=== PATIENT | female | born 1975 | race Caucasian/White ===

== ENCOUNTER 2017-12-28 01:06 | Inpatient (IN) | payer BC ==
[2017-12-28] MEDS ORDERED: ZIPRASIDONE 20 MG VIAL IM STA (01:08)
[2017-12-28 02:39] LABS: Basophils % (A) 0 %; Mean Platelet Volume 6.7
[2017-12-28 02:46] LABS: Basophils # (A) 0.1 k/uL (0-0.2); Eosinophils # (A) 0.1 k/uL (0-0.7); Eosinophils % (A) 0 %; HCT 41.2 % (34.0-46.0); HGB 14.2 gm/dL (11.4-16.0); Lymphocytes # (A) 2.2 k/uL (1.0-4.8); Lymphocytes % (A) 9 %; MCH 30.8 pg (25.0-35.0); MCHC 34.4 g/dL (31.0-37.0); MCV 89.3 fL (80.0-100.0); Monocytes # (A) 0.9 k/uL (0-1.0); Monocytes % (A) 4 %; Neutrophils # (A) 21.4 k/uL (1.3-7.7); Neutrophils % (A) 86 %; Platelet Count 356 k/uL (150-450); RBC 4.61 m/uL (3.80-5.40); RDW 13.7 % (11.5-15.5); WBC 24.8 k/uL (3.8-10.6)
[2017-12-28 02:49] LABS: Amphetamine Screen,Urine Not Detected (NotDetected); Barbiturate Screen,Urine Not Detected (NotDetected); Benzodiazepines Screen,Urine Detected (NotDetected); Cocaine Screen,Urine Not Detected (NotDetected); Methadone Screen, Urine Not Detected (NotDetected); Opiate Screen,Urine Not Detected (NotDetected); Oxycodone Screen, Urine Not Detected (NotDetected); Phencyclidine Screen,Urine Not Detected (NotDetected); Tricyclic Antidepressant,Urine Not Detected (NotDetected); Urn Cannabinoid Scrn Not Detected (NotDetected)
[2017-12-28 02:51] LABS: ALT 23 U/L (9-52); AST 22 U/L (14-36); Acetaminophen <10.0 ug/mL; Alcohol <10 mg/dL; Alkaline Phosphatase 123 U/L (38-126); Anion Gap 19 mmol/L; Blood Urea Nitrogen 16 mg/dL (7-17); Calcium 9.8 mg/dL (8.4-10.2); Carbon Dioxide 14 mmol/L (22-30); Chloride 108 mmol/L (98-107); Glucose 192 mg/dL (74-99); Potassium 3.2 mmol/L (3.5-5.1); Salicylate <1.0 mg/dL; Sodium 141 mmol/L (137-145); Total Bilirubin 0.5 mg/dL (0.2-1.3); Total Protein 8.4 g/dL (6.3-8.2)
[2017-12-28] MEDS ORDERED: LORazepam 2 MG/ML INJ IV STA (03:11)
[2017-12-28] MEDS ORDERED: SODIUM CHLORIDE 0.9% 2,000 ML IV ONE (03:27)
--- NOTE | 2017-12-28 03:53 | XR ---
EXAMINATION TYPE: XR chest 1V portable DATE OF EXAM: 12/28/2017 COMPARISON: 02/14/2016 HISTORY: Cough and tremors TECHNIQUE: Single frontal view of the chest is obtained. FINDINGS: Heart and mediastinum are normal. Lungs are clear. Diaphragm is normal. Bony thorax appear s normal. IMPRESSION: Normal chest. No change.
[2017-12-28] MEDS ORDERED: cefTRIAXone IN SWFI 1,000 MG/10 ML SYRINGE IVP STA (04:05)
[2017-12-28] MEDS ORDERED: MORPHINE SULFATE 2 MG/ML SYRINGE IV STA (04:05)
[2017-12-28 04:20] LABS: Appearance,Urine Clear (Clear); Bilirubin,Urine Negative (Negative); Blood,Urine Moderate (Negative); Calcium Oxalate Crystals,Urine Few /hpf; Color,Urine Yellow; Glucose,Urine (UA) Negative (Negative); Ketones,Urine Negative (Negative); Leukocyte Esterase,Urine Negative (Negative); Mucus,Urine Rare /hpf; Nitrite,Urine Negative (Negative); PH, Urine 5.5 (5.0-8.0); Protein,Urine 2+ (Negative); RBC,Urine 5 /hpf (0-5); Specific Gravity,Urine 1.032 (1.001-1.035); Squamous Epithelial Cell,Urine 1 /hpf (0-4); Urobilinogen,Urine <2.0 mg/dL (<2.0); WBC,Urine 3 /hpf (0-5)
--- NOTE | 2017-12-28 05:15 | CT ---
EXAMINATION TYPE: CT brain wo con DATE OF EXAM: 12/28/2017 COMPARISON: 07/04/2015 HISTORY: AMS, Tremors CT DLP: 984.40 mGycm. Automated Exposure Control for Dose Reduction was Utilized. TECHNIQUE: CT scan of the head is performed without contrast. FINDINGS: Ventricles of normal size. There is no mass effect nor midline shift. There is no sign of intracranial hemorrhage. The calvarium is intact. IMPRESSION: Negative CT scan of the brain. No change.
[2017-12-28] MEDS ORDERED: ACETAMINOPHEN TAB 325 MG TAB PO PRN (06:35)
[2017-12-28] MEDS ORDERED: NALOXONE 0.4 MG/ML 1 ML VIAL IV PRN (06:35)
--- NOTE | 2017-12-28 07:07 | ED ---
Altered Mental Status HPI - General Chief Complaint: Psychiatric Symptoms Stated Complaint: Altered mental status Time Seen by Provider: 12/28/17 01:07 Source: EMS Mode of arrival: EMS Limitations: altered mental status - History of Present Illness Initial Comments: This patient is a 42-year-old woman brought in to be evaluated for altered mental status. The patient is not able to give any history. History is from the patient's mother. Patient's mother states that the patient has history of restless leg syndrome, and that she is given tramadol by her primary physician to take for this. The patient ran out of the tramadol on Friday, and was not feeling well so she went to [facility] on Friday and was given 2 tablets which helped with the symptoms that she was having. The patient 's mother states that the restless leg symptoms seem to be recurring this evening, and that the symptoms became severe about 7 PM. At that point the patient was not able to answer most questions, and she was having what appeared to be spasms that were affecting the legs but also with be manifested in the arms. The patient did not have any apparent fall or injury. MD Complaint: altered mental status Onset/Timin -: hour(s) Severity: severe Consistency of Symptoms: getting worse Context: change in medication, history of similar presentation - Related Data Home Medications Medication Instructions Recorded Confirmed Sertraline [Zoloft] 200 mg PO HS 07/05/15 03/02/16 clonazePAM [Clonazepam] 1 mg PO HS 12/13/15 03/02/16 QUEtiapine [SEROquel] 100 mg PO HS 02/14/16 03/02/16 lamoTRIgine [LaMICtal] 200 mg PO HS 02/14/16 03/02/16 Previous Rx's Medication Instructions Recorded Ibuprofen [Motrin] 800 mg PO Q6HR PRN #20 tab 02/14/16 Allergies Allergy/AdvReac Type Severity Reaction Status Date / Time suvorexant [From Belsomra] AdvReac SLEEP Verified 03/02/16 07:30 PARALYSIS trazodone AdvReac SLEEP Verified 03/02/16 07:30 PARALYSIS Review of Systems ROS Statement: Those systems with pertinent positive or pertinent negative responses have been documented in the HPI. ROS Other: All systems not noted in ROS Statement are negative. Limitations: ROS unobtainable due to patients medical condition Respiratory: Denies: cough Gastrointestinal: Denies: vomiting Past Medical History Past Medical History: Seizure Disorder History of Any Multi-Drug Resistant Organisms: None Reported Additional Past Surgical History / Comment(s): left breast cyst Past Psychological History: Anxiety, Bipolar, Depression Smoking Status: Former smoker Past Alcohol Use History: None Reported Past Drug Use History: None Reported General Exam Limitations: altered mental status General appearance: obtunded Head exam: Present: atraumatic, normocephalic Eye exam: Present: normal appearance, PERRL, EOMI. Absent: scleral icterus, conjunctival injection ENT exam: Present: mucous membranes dry Neck exam: Present: normal inspection, full ROM. Absent: meningismus Respiratory exam: Present: rhonchi. Absent: respiratory distress, wheezes, rales, stridor, accessory muscle use, decreased breath sounds, prolonged expiratory Cardiovascular Exam: Present: normal rhythm, tachycardia, normal heart sounds. Absent: systolic murmur, diastolic murmur, rubs, gallop GI/Abdominal exam: Present: soft. Absent: distended, tenderness, guarding, rebound, rigid, mass Extremities exam: Present: normal inspection, normal capillary refill. Absent: pedal edema, calf tenderness Back exam: Present: normal inspection. Absent: CVA tenderness (R), CVA tenderness (L) Neurological exam: Present: altered, CN II-XII intact, reflexes normal. Absent : motor sensory deficit Skin exam: Present: warm, dry, intact, normal color. Absent: rash Course Vital Signs 12/28/17 12/28/17 01:27 05:58 Temperature 100.2 F H 99.8 F H Pulse Rate 127 H 116 H Respiratory 17 17 Rate Blood Pressure 147/62 153/89 O2 Sat by Pulse 98 95 Oximetry Medical Decision Making - Medical Decision Making Patient's a 42-year-old woman brought for altered mental status. The patient's workup is notable mainly for leukocytosis. So had borderline fever, and I discussed indications, risks and benefits of having lumbar puncture with the patient's mother with this point is refusing. The patient is given empiric Biotics. The patient's case discussed with Dr. Conrad, covering for the patient's primary physician. Patient will be admitted, having neurology consultation to rule out seizure activity. Case also discussed with Dr. Steele covering critical care. - Lab Data Result diagrams: 12/28/17 02:17 12/28/17 02:17 Lab Results 12/28/17 12/28/17 12/28/17 Range/Units 02:15 02:17 02:17 WBC 24.8 H (3.8-10.6) k/uL RBC 4.61 (3.80-5.40) m/uL Hgb 14.2 (11.4-16.0) gm/dL Hct 41.2 (34.0-46.0) % MCV 89.3 (80.0-100.0) fL MCH 30.8 (25.0-35.0) pg MCHC 34.4 (31.0-37.0) g/dL RDW 13.7 (11.5-15.5) % Plt Count 356 (150-450) k/uL Neutrophils % 86 % Lymphocytes % 9 % Monocytes % 4 % Eosinophils % 0 % Basophils % 0 % Neutrophils # 21.4 H (1.3-7.7) k/uL Lymphocytes # 2.2 (1.0-4.8) k/uL Monocytes # 0.9 (0-1.0) k/uL Eosinophils # 0.1 (0-0.7) k/uL Basophils # 0.1 (0-0.2) k/uL Sodium 141 (137-145) mmol/L Potassium 3.2 L (3.5-5.1) mmol/L Chloride 108 H (98-107) mmol/L Carbon Dioxide 14 L (22-30) mmol/L Anion Gap 19 mmol/L BUN 16 (7-17) mg/dL Creatinine 1.10 H (0.52-1.04) mg/dL Est GFR (CKD-EPI)AfAm 72 (>60 ml/min/1.73 sqM) Est GFR (CKD-EPI)NonAf 63 (>60 ml/min/1.73 sqM) Glucose 192 H (74-99) mg/dL Plasma Lactic Acid Danilo (0.7-2.0) mmol/L Calcium 9.8 (8.4-10.2) mg/dL Total Bilirubin 0.5 (0.2-1.3) mg/dL AST 22 (14-36) U/L ALT 23 (9-52) U/L Alkaline Phosphatase 123 (38-126) U/L Total Protein 8.4 H (6.3-8.2) g/dL Albumin 5.0 (3.5-5.0) g/dL Urine Color Yellow Urine Appearance Clear (Clear) Urine pH 5.5 (5.0-8.0) Ur Specific Buchanan 1.032 (1.001-1.035) Urine Protein 2+ H (Negative) Urine Glucose (UA) Negative (Negative) Urine Ketones Negative (Negative) Urine Blood Moderate H (Negative) Urine Nitrite Negative (Negative) Urine Bilirubin Negative (Negative) Urine Urobilinogen <2.0 (<2.0) mg/dL Ur Leukocyte Esterase Negative (Negative) Urine RBC 5 (0-5) /hpf Urine WBC 3 (0-5) /hpf Ur Squamous Epith Cells 1 (0-4) /hpf Calcium Oxalate Crystal Few H (None) /hpf Urine Mucus Rare H (None) /hpf Urine HCG, Qual (Not Detectd) Salicylates <1.0 mg/dL Urine Opiates Screen (NotDetected) Ur Oxycodone Screen (NotDetected) Urine Methadone Screen (NotDetected) Ur Propoxyphene Screen (NotDetected) Acetaminophen <10.0 ug/mL Ur Barbiturates Screen (NotDetected) U Tricyclic Antidepress (NotDetected) Ur Phencyclidine Scrn (NotDetected) Ur Amphetamines Screen (NotDetected) U Methamphetamines Scrn (NotDetected) U Benzodiazepines Scrn (NotDetected) Urine Cocaine Screen (NotDetected) U Marijuana (THC) Screen (NotDetected) Serum Alcohol <10 mg/dL 12/28/17 12/28/17 12/28/17 Range/Units 02:17 02:17 04:25 WBC (3.8-10.6) k/uL RBC (3.80-5.40) m/uL Hgb (11.4-16.0) gm/dL Hct (34.0-46.0) % MCV (80.0-100.0) fL MCH (25.0-35.0) pg MCHC (31.0-37.0) g/dL RDW (11.5-15.5) % Plt Count (150-450) k/uL Neutrophils % % Lymphocytes % % Monocytes % % Eosinophils % % Basophils % % Neutrophils # (1.3-7.7) k/uL Lymphocytes # (1.0-4.8) k/uL Monocytes # (0-1.0) k/uL Eosinophils # (0-0.7) k/uL Basophils # (0-0.2) k/uL Sodium (137-145) mmol/L Potassium (3.5-5.1) mmol/L Chloride (98-107) mmol/L Carbon Dioxide (22-30) mmol/L Anion Gap mmol/L BUN (7-17) mg/dL Creatinine (0.52-1.04) mg/dL Est GFR (CKD-EPI)AfAm (>60 ml/min/1.73 sqM) Est GFR (CKD-EPI)NonAf (>60 ml/min/1.73 sqM) Glucose (74-99) mg/dL Plasma Lactic Acid Danilo 2.3 H* (0.7-2.0) mmol/L Calcium (8.4-10.2) mg/dL Total Bilirubin (0.2-1.3) mg/dL AST (14-36) U/L ALT (9-52) U/L Alkaline Phosphatase (38-126) U/L Total Protein (6.3-8.2) g/dL Albumin (3.5-5.0) g/dL Urine Color Urine Appearance (Clear) Urine pH (5.0-8.0) Ur Specific Buchanan (1.001-1.035) Urine Protein (Negative) Urine Glucose (UA) (Negative) Urine Ketones (Negative) Urine Blood (Negative) Urine Nitrite (Negative) Urine Bilirubin (Negative) Urine Urobilinogen (<2.0) mg/dL Ur Leukocyte Esterase (Negative) Urine RBC (0-5) /hpf Urine WBC (0-5) /hpf Ur Squamous Epith Cells (0-4) /hpf Calcium Oxalate Crystal (None) /hpf Urine Mucus (None) /hpf Urine HCG, Qual Not Detected (Not Detectd) Salicylates mg/dL Urine Opiates Screen Not Detected (NotDetected) Ur Oxycodone Screen Not Detected (NotDetected) Urine Methadone Screen Not Detected (NotDetected) Ur Propoxyphene Screen Not Detected (NotDetected) Acetaminophen ug/mL Ur Barbiturates Screen Not Detected (NotDetected) U Tricyclic Antidepress Not Detected (NotDetected) Ur Phencyclidine Scrn Not Detected (NotDetected) Ur Amphetamines Screen Not Detected (NotDetected) U Methamphetamines Scrn Not Detected (NotDetected) U Benzodiazepines Scrn Detected H (NotDetected) Urine Cocaine Screen Not Detected (NotDetected) U Marijuana (THC) Screen Not Detected (NotDetected) Serum Alcohol mg/dL Disposition Clinical Impression: Altered mental status, Withdrawal from opioids, Leukocytosis Disposition: ADMITTED IP TO THIS [facility] Condition: Serious Is patient prescribed a controlled substance at d/c from ED?: No
[2017-12-28] MEDS ORDERED: ACETAMINOPHEN IV (For NPO) 1,000 MG in EMPTY BAG 1 BAG IVPB STA (08:01)
[2017-12-28] MEDS ORDERED: MIDAZOLAM 2 MG/2 ML VIAL IV ONE (09:39)
[2017-12-28] MEDS: SODIUM CHLORIDE 0.9% 1,000 ML IV SCH ×3 (09:49→23:08)
[2017-12-28] MEDS ORDERED: fentaNYL (PF) 50 MCG/ML 2 ML AMP IVP STA (09:51)
--- NOTE | 2017-12-28 10:25 | P.PCN ---
Date of Procedure: 12/28/17 Procedure(s) Performed: Preoperative diagnosis: Altered mental status Post operative diagnoses: Altered mental status Anesthesia= moderate sedation with Versed 2 mg and fentanyl 100 g and local infiltration with lidocaine 1% 2 mL. Condition: Critical. Complication: none. Description of the procedure procedure risk and benefits discussed with the patient:s family ( mother ), consent signed. Patient and the procedure area placed in lateral position back prepped with chlorhexidine 3 times been local infiltration of the skin and subcutaneous tissue with lidocaine 1% 2 mL for skin and subcu interstitial frustrations at L4 5 levels then 22-gauge Quincke- type needle advanced slowly at L4- 5 interlaminar space there was positive cerebrospinal fluid which was clear, no heme, no paresthesia ,total of 8 ML of clear cerebrospinal fluid collected in 4 different tubes 2- mL in each, then the needle removed and a Band-Aid applied and patient tolerated the procedure well without any complications, further management as per intensive care unit team.
[2017-12-28 11:21] LABS: Appearance,CSF Clear; CSF Tube Number 4; Nucleated Cells, CSF 1 u/L (0-5)
[2017-12-28 11:22] LABS: Red Blood Cell,CSF 1 u/L (0-10)
[2017-12-28 11:23] LABS: Glucose,CSF 69 mg/dL (40-70); Total Protein,CSF 46 mg/dL (12-60)
[2017-12-28] MEDS ORDERED: IBUPROFEN ORAL SUSP 100 MG/5 ML CUP PO ONE (12:07)
[2017-12-28] MEDS ORDERED: ACETAMINOPHEN ORAL SUSP 160 MG/5 ML CUP PO ONE (12:07)
[2017-12-28 13:20] LABS: Glucose,Whole Blood 118 mg/dL (75-99)
[2017-12-28] MEDS ORDERED: HALOPERIDOL LACTATE 5 MG/ML 1 ML VIAL IVP STA ×2 (14:20→14:51)
[2017-12-28] MEDS ORDERED: MORPHINE SULFATE 2 MG/ML SYRINGE IVP STA (14:20)
[2017-12-28] MEDS ORDERED: DIAZEPAM 5 MG/ML 2 ML INJ IVP STA (14:21)
[2017-12-28] MEDS ORDERED: DIAZEPAM 5 MG/ML (10 ML MDV) IVP STA (14:25)
[2017-12-28] MEDS ORDERED: HALOPERIDOL LACTATE 5 MG/ML 1 ML VIAL IVP PRN ×2 (14:37)
[2017-12-28] MEDS ORDERED: ACETAMINOPHEN IV (For NPO) 1,000 MG in EMPTY BAG 1 BAG IVPB PRN (14:44)
[2017-12-28] MEDS ORDERED: PROPOFOL 100 ML IV ONE (15:24)
[2017-12-28] MEDS ORDERED: CISATRACURIUM 2 MG/ML 5 ML VIAL IV ONE (15:24)
[2017-12-28] MEDS ORDERED: NOREPINEPHRIN 4 MG-0.9% NS PMX 4 MG/250 ML ML IV ONE (15:29)
[2017-12-28] MEDS: PROPOFOL 1,000 MG in EMPTY BAG 1 BAG IV SCH ×3 (15:30→22:03)
[2017-12-28] MEDS ORDERED: SODIUM CHLORIDE 0.9% 1,000 ML IV ONE ×2 (15:45→15:46)
--- NOTE | 2017-12-28 15:51 | P.CNPUL ---
History of Present Illness Consult date: 12/28/17 Chief complaint: Altered mental status History of present illness: A 42-year-old female patient with known history of severe depression/bipolar disorder along with history of chronic muscle spasm restless leg syndrome has been taking Ultram 100 mg 3 times a day for many years. The patient has been hospitalized in the past for suicidal attempts and she has not seen a psychiatrist for the past 3 years. There is a vague remote history of seizure disorder in the past. The patient was brought in to the burst department this morning because of altered mentation. She was not able to give any history and the history was obtained from the family including the father and the mother with home the patient lives. The family claims that the patient was not able to get her tramadol refills and she is started to withdrawal from being off opiates and tramadol 9 that she is very much dependent on this medication. She started getting altered and confused and combative and agitated. In the burst department the patient was very much agitated and she was unable to answer any questions. She was moving all 4 extremities without any limitation. She was placed and 2 points restraint and she was given a total of 9 mg of morphine, 100 g of fentanyl and 20 mg of Geodon. A lumbar puncture was also done in the emergency department did came back negative for meningitis. The patient got transferred to the intensive care unit and she was extremely agitated to the point where she was combative and was very hard to control her agitation. I give this patient additional 5 mg of Valium, a total of 10 mg of Haldol and 5 mg of morphine. Unfortunately, she continued to do the same behavior. She would yell and scream and the very agitated to the point where she was pulling out her IV lines and now this medication were given to him was effective. I discussed the case with the neurologist. Discussed the case with the family. I control her agitation with a total of 150 mg of Diprivan. This was given a bolus and following that the patient was given Nimbex and she was intubated and placed on a mechanical ventilator. Currently Diprivan is running at 50 mics per KG per minute. She is oxygenating well and she is well ventilating and success with the mechanical ventilator. She is an assist-control of 20, tidal volume 500, FiO2 of 100% and a PEEP of 5. She did have some hypotension postintubation with a blood pressure of mid 80s and currently is receiving IV fluids. Chest x-ray and blood gases are still pending for now. CAT scan of the brain that was done the burst department showed no acute abnormalities. No seizure activity was noted. No head trauma. No neck stiffness. She did have a 1 spike of temperature. Her lactic acid was at 2.1. Be urine was 16 creatinine is 1.1 glucose within normal limits and chest x-ray at time of admission is within normal limits. Review of Systems ROS unobtainable: due to mental status Past Medical History Past Medical History: Seizure Disorder Additional Past Medical History / Comment(s): Bipolar disorder, depression, previous history of suicidal ideation, previous opiate dependence, previous history of intentional suicide, restless leg syndrome, previous history of right shoulder dislocation, chronic anxiety, muscle spasms, severe problems related to social support group, and chronic psychiatric disorder History of Any Multi-Drug Resistant Organisms: None Reported Additional Past Surgical History / Comment(s): Biopsies of left breast cysts. Past Anesthesia/Blood Transfusion Reactions: No Reported Reaction Past Psychological History: Anxiety, Bipolar, Depression, PTSD Smoking Status: Current every day smoker Past Alcohol Use History: None Reported Past Drug Use History: None Reported - Past Family History Father Family Medical History: Hypertension Medications and Allergies Home Medications Medication Instructions Recorded Confirmed Type Sertraline [Zoloft] 200 mg PO HS 07/05/15 12/28/17 History QUEtiapine [SEROquel] 100 mg PO HS 02/14/16 12/28/17 History lamoTRIgine [LaMICtal] 200 mg PO HS 02/14/16 12/28/17 History Diazepam [Valium] 5 mg PO DAILY PRN 12/28/17 12/28/17 History Eszopiclone [Lunesta] 3 mg PO HS 12/28/17 12/28/17 History traMADol HCL [Ultram] 100 mg PO Q6HR PRN 12/28/17 12/28/17 History Allergies Allergy/AdvReac Type Severity Reaction Status Date / Time suvorexant [From Belsomra] AdvReac SLEEP Verified 12/28/17 10:38 PARALYSIS trazodone AdvReac SLEEP Verified 12/28/17 10:38 PARALYSIS Physical Exam Vitals: Vital Signs Temp Pulse Resp BP Pulse Ox 12/28/17 15:00 120 H 26 H 130/65 93 L 12/28/17 14:45 125 H 27 H 159/95 93 L 12/28/17 14:30 142 H 26 H 159/95 96 12/28/17 14:15 148 H 30 H 123/86 96 12/28/17 14:00 108 H 28 H 123/86 97 12/28/17 13:45 116 H 30 H 129/59 96 12/28/17 13:30 97.9 F 115 H 26 H 106/68 97 12/28/17 12:32 118 H 18 161/78 96 12/28/17 12:00 102.3 F H 62 22 131/62 99 12/28/17 10:00 127 H 18 125/76 96 12/28/17 09:00 101 F H 115 H 20 132/76 96 12/28/17 08:00 101.6 F H 120 H 20 144/78 96 12/28/17 05:58 99.8 F H 116 H 17 153/89 95 12/28/17 01:27 100.2 F H 127 H 17 147/62 98 Intake and Output 12/28/17 12/28/17 12/28/17 06:59 14:59 22:59 Intake Total 125 125 Output Total 400 50 Balance -275 75 Intake: IV 125 125 Sodium Chloride 0.9% 1, 125 125 000 ml @ 125 mls/hr IV . Q8H [facility] Rx#:[id number] Output: Urine 400 50 Other: Weight 77.111 kg 72.9 kg Gen. appearance the patient is calm comfortable sedated with Diprivan and paralyzed with a dose of Nimbex. Currently intubated on mechanical ventilator. Orogastric and orotracheal tube are both in place. Head exam was generally normal. There was no scleral icterus or corneal arcus. Mucous membranes were moist. Neck was supple and without jugular venous distension, thyromegaly, or carotid bruits. Carotids were easily palpable bilaterally. There was no adenopathy. Lungs were clear to auscultation and percussion, and with normal diaphragmatic excursion. No wheezes or rales were noted. Cardiac exam revealed the PMI to be normally situated and sized. The rhythm was regular and no extrasystoles were noted during several minutes of auscultation. The first and second heart sounds were normal and physiologic splitting of the second heart sound was noted. There were no murmurs, rubs, clicks, or gallops. Abdominal exam revealed normal bowel sounds. The abdomen was soft, non-tender, and without masses, organomegaly, or appreciable enlargement of the abdominal aorta. Examination of the extremities revealed easily palpable radial, femoral and pedal pulses. There was no cyanosis, clubbing or edema. Examination of the skin revealed no evidence of significant rashes, suspicious appearing nevi or other concerning lesions. Neurologically the patient is sedated with Diprivan and she is calm and comfortable at this point in time. Pupils are reacting and equal and sized. No focal neurological deficits. She is moving all 4 extremities. She was in an acute psychotic state. Results - Laboratory Findings CBC and BMP: 12/28/17 02:17 12/28/17 02:17 Abnormal lab findings: Abnormal Labs 12/28/17 12/28/17 12/28/17 02:15 02:17 02:17 WBC 24.8 H Neutrophils # 21.4 H Potassium 3.2 L Chloride 108 H Carbon Dioxide 14 L Creatinine 1.10 H Glucose 192 H POC Glucose (mg/dL) Plasma Lactic Acid Danilo Total Protein 8.4 H Urine Protein 2+ H Urine Blood Moderate H Calcium Oxalate Crystal Few H Urine Mucus Rare H U Benzodiazepines Scrn 12/28/17 12/28/17 12/28/17 02:17 04:25 13:18 WBC Neutrophils # Potassium Chloride Carbon Dioxide Creatinine Glucose POC Glucose (mg/dL) 118 H Plasma Lactic Acid Danilo 2.3 H* Total Protein Urine Protein Urine Blood Calcium Oxalate Crystal Urine Mucus U Benzodiazepines Scrn Detected H - Diagnostic Findings Chest x-ray: image reviewed Assessment and Plan Plan: Assessment 1 acute psychosis, with extreme agitation failed to respond to routine therapy with a combination of Haldol, opiates and benzodiazepines. Currently intubated on mechanical ventilator on a Diprivan drip 2 acute opiate withdrawal 3 bipolar disorder 4 depression 5 previous history of suicidal attempts 6 chronic Ultram dependence 7 restless leg syndrome 8 chronic anxiety Plan Obtain blood gas. Obtain chest x-ray. Keep the patient on Diprivan. Restart Ultram Lamictal and Seroquel and Zoloft. This will be started a usual doses. Lumbar puncture is been negative. CAT scan of the brain is within normal limits. Neurologically on the case. We'll consult psychiatry. IV fluids. Monitor fever pattern. DVT and GI prophylaxis. We'll continue to follow. This case was discussed with urology. Family was updated on her condition.
--- NOTE | 2017-12-28 16:02 | P.CNNES ---
History of Present Illness Consult date: 12/28/17 Reason for Consult: Patient with altered mental status and acute psychosis. History of Present Illness: This patient is a 42-year-old right-handed white female who was brought into [facility] emergency room early this morning for evaluation of altered mental status. Patient apparently lives at home with both of her parents. Her mother was very concerned as a patient showed signs of increase in symptoms of restless leg syndrome. According to the mother that the patient has been taking tramadol 100 mg every 6 hours for many years. The patient apparently ran out of her tramadol medication this past Friday and was not feeling well. She went to the [facility] ER on Friday for further evaluation and was given 2 tablets which seemed to help somewhat but her symptoms seem to worsen according to the mother. The mother states that her symptoms of restless leg which she describes this severe muscle spasms in both of her legs become worse in the evening. Yesterday evening she became more and more combative and not able to follow simple commands. She appeared to have ongoing spasms in the legs. The patient became more and more confused and disoriented at home. According to the mother the patient has a long- standing psychiatric history. She has not been following with any psychiatrists recently. She had an admission to [facility] inpatient psychiatric unit a few years ago following which she was referred to [facility] for evaluation of possible seizure disorder. According to the mother she was evaluated at [facility] and had an MRI of the brain which according to the mother failed to reveal any abnormalities. The patient was seeing a psychiatrist in the outpatient setting for some period of time Dr. Alfonso. Apparently she has not seen him anytime recently. She is on multiple psychiatric medications which include Seroquel, Klonopin, Lamictal, and Zoloft. In addition she has been on tramadol for treatment of what the patient mother states was for treatment of restless leg syndrome. As noted she has been on tramadol 400 mg daily. This was being prescribed to her by her primary care physician Dr. Gleason. Apparently the patient has not had any recent psychiatric evaluation of her underlying psychiatric condition. The patient was evaluated in the emergency room this morning by Dr. Palomares. On initial laboratory workup in the emergency room she had evidence of leukocytosis. She then subsequent he developed high-grade temperature in the ER of 102.3. Neurology was consulted for further evaluation of her altered mental status. We recommended the ER physician Dr. Hollis to arrange for a lumbar puncture for this patient right away to rule out meningitis. The patient was seen by anesthesia and was able to complete the lumbar puncture performed by anesthesia this morning in the ER. Spinal fluid results came back with a RBC count of 1 and 90 WBC count of 1 with CSF glucose of 69 and CSF protein of 46. The Gram stain on the spinal fluid revealed no organisms. These spinal fluid results were negative for any evidence of meningitis. We have requested the spinal fluid also to be sent for HSV 1 and 2 to be done by PCR. Laboratory was contacted and the study will be ordered today. The patient continued to show worsening symptoms of agitation and combativeness. She was then transferred to the intensive care unit late this afternoon and still remains very agitated and combative. She was seen by application security specialist Dr. Steele in the ICU who ordered Haldol and Valium for the patient. This did seem to help reduce her agitation. Her clinical history is not typical for opioid withdrawal. She does seem to be having evidence for acute psychosis or delirium. We have recommended a stat psychiatry consultation for this patient as well. From a neurological standpoint the patient is to agitated and is not following any commands. She does show signs of some increased muscle spasticity in both upper and lower extremities more notable in the lower extremities. On further questioning the patient apparently has no difficulty at home ambulating or getting around the normal activities. According to the mother was at the ICU bedside. Her symptoms worsened over the last few days as she had been off of her usual dose of tramadol. According to the mother her evaluation at [facility] a few years ago came back negative for any clear evidence as a cause of her restless leg symptoms and spasticity. We question whether any imaging has been done of her spine and according to the mother there has been none. We will request the medical records from [facility] to review the MRI that was done at that time for this patient. According to the mother there was no clear abnormality detected at the time. The patient did undergo a computed tomography scan of the brain on admission through the ER today which was reported negative for any acute changes. The patient's temperature did come down in the intensive care unit and is currently at 97.9. As noted spinal fluid results were reviewed and there is no evidence for acute bacterial or viral meningitis. The patient still remains very agitated and almost showing signs of acute psychosis. This also could be possibility of withdrawal syndrome from tramadol. We have recommended a stat EEG to be done on this patient today in the intensive care unit. We have requested the rn unit manager to contact the on-call tool maintenance technician to arrange for this EEG to be done today for review to rule out any possibility of seizure disorder for this patient as well. Case was discussed at length today with Dr. Steele regarding this patient's overall neurological findings. She does show significant evidence from clonus and spasticity in both upper and lower extremities more notable in the lower extremities. We would recommend further evaluation with MRI studies of the brain as well as cervical and lumbar spinal cord. We will await further recommendations from psychiatry regarding her psychiatric medications. She is being given Haldol and Valium as needed to help control her current agitation. We will wait to see if pulmonary medicine and Dr. Steele wished to sedate the patient and place her on ventilator to protect her airways if she becomes worse. It was elected to to intubate the patient and she was sedated on Diprivan drip. Her overall condition remains very guarded in the ICU at this time. We have discussed our findings with the patient's mother and father who were at bedside. Their questions were answered. Her overall prognosis at this time remains very guarded. We will continue to follow the patient very closely in the intensive care unit with multiple other specialists. Review of Systems Constitutional: Denies chills, Denies fever Eyes: denies blurred vision, denies pain Ears, nose, mouth and throat: Denies headache, Denies sore throat Cardiovascular: Denies chest pain, Denies shortness of breath Respiratory: Denies cough Gastrointestinal: Denies abdominal pain, Denies diarrhea, Denies nausea, Denies vomiting Genitourinary: Denies dysuria, Denies hematuria Musculoskeletal: Denies myalgias Integumentary: Denies pruritus, Denies rash Neurological: Reports change in mentation, Reports confusion, Reports motor disturbance, Reports spasticity, Denies numbness, Denies weakness Psychiatric: Reports confusion, Reports disorientation, Reports irritability, Denies anxiety, Denies depression Endocrine: Denies fatigue, Denies weight change Past Medical History Past Medical History: Seizure Disorder History of Any Multi-Drug Resistant Organisms: None Reported Additional Past Surgical History / Comment(s): Biopsies of left breast cysts. Past Anesthesia/Blood Transfusion Reactions: No Reported Reaction Past Psychological History: Anxiety, Bipolar, Depression, PTSD Smoking Status: Current every day smoker Past Alcohol Use History: None Reported Past Drug Use History: None Reported - Past Family History Father Family Medical History: Hypertension Medications and Allergies Home Medications Medication Instructions Recorded Confirmed Type Sertraline [Zoloft] 200 mg PO HS 07/05/15 12/28/17 History QUEtiapine [SEROquel] 100 mg PO HS 02/14/16 12/28/17 History lamoTRIgine [LaMICtal] 200 mg PO HS 02/14/16 12/28/17 History Diazepam [Valium] 5 mg PO DAILY PRN 12/28/17 12/28/17 History Eszopiclone [Lunesta] 3 mg PO HS 12/28/17 12/28/17 History traMADol HCL [Ultram] 100 mg PO Q6HR PRN 12/28/17 12/28/17 History Allergies Allergy/AdvReac Type Severity Reaction Status Date / Time suvorexant [From [facility]] AdvReac SLEEP Verified 12/28/17 10:38 PARALYSIS trazodone AdvReac SLEEP Verified 12/28/17 10:38 PARALYSIS Physical Examination - Vital Signs Vital Signs: Vital Signs Temp Pulse Resp BP Pulse Ox 12/28/17 15:00 120 H 26 H 130/65 93 L 12/28/17 14:45 125 H 27 H 159/95 93 L 12/28/17 14:30 142 H 26 H 159/95 96 12/28/17 14:15 148 H 30 H 123/86 96 12/28/17 14:00 108 H 28 H 123/86 97 12/28/17 13:45 116 H 30 H 129/59 96 12/28/17 13:30 97.9 F 115 H 26 H 106/68 97 12/28/17 12:32 118 H 18 161/78 96 12/28/17 12:00 102.3 F H 62 22 131/62 99 12/28/17 10:00 127 H 18 125/76 96 12/28/17 09:00 101 F H 115 H 20 132/76 96 12/28/17 08:00 101.6 F H 120 H 20 144/78 96 12/28/17 05:58 99.8 F H 116 H 17 153/89 95 12/28/17 01:27 100.2 F H 127 H 17 147/62 98 Intake and Output 12/28/17 12/28/17 12/28/17 06:59 14:59 22:59 Intake Total 125 125 Output Total 400 50 Balance -275 75 Intake: IV 125 125 Sodium Chloride 0.9% 1, 125 125 000 ml @ 125 mls/hr IV . Q8H [facility] Rx#:[id number] Output: Urine 400 50 Other: Weight 77.111 kg 72.9 kg - Constitutional General appearance: average body habitus, severe distress - EENT EENT: PERRL, mucous membranes moist - Respiratory Respiratory: lungs clear, normal breath sounds - Cardiovascular Cardiovascular: regular rate, normal S1, normal S2 Extremities: no peripheral edema bilaterally - Gastrointestinal Gastrointestinal: normoactive bowel sounds - Integumentary Integumentary: normal - Neurologic Cranial nerve examination: PERRL, EOMI, VFF, V1/V2/V3 grossly intact, face symmetric, tongue midline, intact gag reflex, intact corneal reflex, normal palatal elevation Speech examination: global aphasia, other (Patient screaming and agitated in the ICU.) Sensorimotor examination: intact Motor examination - right side: 4/5: biceps, triceps, wrist flexion, wrist extension, life insurance salesperson, hip flexors, knee extensors, dorsiflexion, toe extension (EHL) , plantarflexion Motor examination - left side: 4/5: biceps, triceps, wrist flexion, wrist extension, life insurance salesperson, hip flexors, knee extensors, dorsiflexion, toe extension (EHL) , plantarflexion Detailed sensory examination: intact Reflex and gait examination: other (Not able to assess her gait due to agitation in the ICU.) Reflexes: 2+: ankle, bicep, knee, tricep - Psychiatric Psychiatric: agitated Results - Laboratory Findings CBC and BMP: 12/28/17 02:17 12/28/17 02:17 Abnormal Lab Findings: Abnormal Labs 12/28/17 12/28/17 12/28/17 02:15 02:17 02:17 WBC 24.8 H Neutrophils # 21.4 H Potassium 3.2 L Chloride 108 H Carbon Dioxide 14 L Creatinine 1.10 H Glucose 192 H POC Glucose (mg/dL) Plasma Lactic Acid Danilo Total Protein 8.4 H Urine Protein 2+ H Urine Blood Moderate H Calcium Oxalate Crystal Few H Urine Mucus Rare H U Benzodiazepines Scrn 12/28/17 12/28/17 12/28/17 02:17 04:25 13:18 WBC Neutrophils # Potassium Chloride Carbon Dioxide Creatinine Glucose POC Glucose (mg/dL) 118 H Plasma Lactic Acid Danilo 2.3 H* Total Protein Urine Protein Urine Blood Calcium Oxalate Crystal Urine Mucus U Benzodiazepines Scrn Detected H Assessment and Plan (1) Acute metabolic encephalopathy Current Visit: Yes Status: Acute Code(s): G93.41 - METABOLIC ENCEPHALOPATHY SNOMED Code(s): 69671109 (2) History of psychiatric disorder Current Visit: Yes Status: Acute Code(s): Z86.59 - PERSONAL HISTORY OF OTHER MENTAL AND BEHAVIORAL DISORDERS SNOMED Code(s): 109736680 (3) Leukocytosis Current Visit: Yes Status: Acute Code(s): D72.829 - ELEVATED WHITE BLOOD CELL COUNT, UNSPECIFIED SNOMED Code(s): 482039382 (4) Seizures, generalized convulsive Current Visit: No Status: Acute Code(s): R56.9 - UNSPECIFIED CONVULSIONS SNOMED Code(s): 917035977 (5) Depression Current Visit: No Status: Acute Code(s): F32.9 - MAJOR DEPRESSIVE DISORDER, SINGLE EPISODE, UNSPECIFIED SNOMED Code(s): 76124671 Plan: This patient is a 42-year-old right-handed white female who was evaluated today in the intensive care unit for altered mental status and acute psychosis. Patient was brought into the emergency room today for worsening symptoms of restless leg syndrome and withdrawal from tramadol. Patient has been treated for restless leg syndrome and had been taking tramadol 100 mg 4 times a day. She ran out of her prescription on Friday of this past week and showed worsening symptoms of spasms mostly involving her lower extremities. Symptoms worsened and she became more and more agitated and her mother and father decided to bring her to the emergency room today for further evaluation. She was seen in the ER by Dr. Palomares who performed a computed tomography scan of the brain. CAT scan of the brain was reported negative with no acute changes. Patient developed high-grade fever in the ER and was recommended to undergo a lumbar puncture. Lumbar puncture was performed by anesthesia and the results of which are noted above. Spinal fluid was negative for any evidence of bacterial meningitis. We have recommended the spinal fluid to be checked for HSV-1 and 2. This was admitted today to the laboratory workup. The patient remains very agitated in the ICU. She is required multiple doses of Haldol and Valium to help calm her down. We have recommended a stat EEG to be done today in the ICU to rule out any possibility of underlying seizure disorder producing the severe altered mental status. Patient is to be evaluated by psychiatry. She does have evidence of possible tramadol withdrawal syndrome. Case was discussed at length with the patient's 2 parents or at bedside. All their questions were answered. They are aware of her very guarded condition. Case was also discussed today with Dr. Steele and we will continue very close supervision of this patient in the intensive care unit. It was elected by Dr. Steele to intubate this patient and she has been placed on a Diprivan drip. We have requested records to be obtained from [facility] where she was evaluated for seizure disorder about 2 years ago. According to her mother the workup came back negative. Patient has been on tramadol for at least 10 years to treat what the mother terms for treatment of restless leg syndrome. We have recommended possibility of obtaining MRI of the brain, cervical spine, and lumbar spine once the patient is stabilized. We will continue to follow the patient closely with multiple other specialists in the ICU. The patient's parents were updated on her overall neurological status in the ICU. They are aware of her very guarded condition. Her overall prognosis at this time remains very guarded. Time with Patient: Greater than 30
[2017-12-28 16:06] LABS: ABG HCO3 18 mmol/L (21-25); ABG PCO2 33 mmHg (35-45); ABG PH 7.34 (7.35-7.45); ABG PO2 391 mmHg (83-108); ABG TCO2 19 mmol/L (19-24)
[2017-12-28] MEDS ORDERED: NOREPINEPHRINE 16 MG in SODIUM CHLORIDE 0.9% 250 ML IV SCH (16:30)
[2017-12-28] MEDS: HEPARIN SODIUM,PORCINE 5,000 UNIT/ML 1 ML VIAL SQ SCH ×2 (16:48→23:08)
[2017-12-28] MEDS: PANTOPRAZOLE 40 MG/10 ML VIAL IVP SCH (16:48)
--- NOTE | 2017-12-28 17:16 | XR ---
EXAMINATION TYPE: XR chest 1V portable DATE OF EXAM: 12/28/2017 COMPARISON: 12/28/2017 INDICATION: Tube placement, difficulty breathing TECHNIQUE: Single frontal view of the chest is obtained. FINDINGS: The heart size is normal. The pulmonary vasculature is normal. The lungs are clear. There is an endotracheal tube placement the tip above the debbie. Nasogastric tube transverses the th orax the tip in the right upper quadrant of the abdomen. IMPRESSION: 1. No acute pulmonary process. 2. Lines and catheters discussed above.
[2017-12-28] MEDS: traMADol 50 MG TAB PO PRN (18:03)
[2017-12-28 19:05] LABS: ABG PCO2 36 mmHg (35-45); ABG PO2 210 mmHg (83-108)
[2017-12-28 19:06] LABS: ABG HCO3 17 mmol/L (21-25); ABG TCO2 19 mmol/L (19-24)
--- NOTE | 2017-12-28 19:49 | EEG ---
ELECTROENCEPHALOGRAM REPORT DATE OF EE12/28/2017. REFERRING PHYSICIAN: Dr. Gleason and Dr. Steele. CONSULTING/INTERPRETING PHYSICIAN: Dr. Byron Wei MD ELECTROENCEPHALOGRAPHIC EXAMINATION REPORT: INDICATION FOR EXAMINATION: This patient is a 42-year-old female being evaluated for acute psychosis and altered mental status. Patient with recent withdrawal from high dose tramadol. The EEG ordered to rule out seizure disorder. Patient currently intubated on the ventilator. AGE: [age]. EEG FINDINGS: A routine 21 channel awake digital EEG recording was accomplished utilizing the 10-20 international system with bipolar and referential montages. The background activity in the most alert resting state consists of a low to medium amplitude, fairly well developed and well sustained 6 Hz activity over the posterior head regions. This posterior rhythm attenuates to eye opening. There is a small amount of low amplitude 18-20 Hz beta activity seen maximally over the anterior head regions. Muscle and movement artifact was observed on a few occasions during the tracing. Hyperventilation was not performed. Photic stimulation at flash frequencies of 2-30 Hz produced a minimal occipital driving response. No epileptiform discharges were seen. IMPRESSION: This EEG is moderately abnormal in a diffuse fashion due to slowing of the EEG background. The EEG failed to reveal any focal, lateralized, or epileptiform abnormalities. Clinical correlation is recommended. MMODL / IJN: [id number] /
[2017-12-28] MEDS: QUEtiapine 100 MG TAB PO SCH (20:13)
[2017-12-28] MEDS: lamoTRIgine 100 MG TAB PO SCH (20:13)
[2017-12-28] MEDS: CHLORHEXIDINE GLUCONATE 15 ML CUP MUCOUS MEM SCH (20:13)
--- NOTE | 2017-12-28 22:48 | P.HPIM ---
History of Present Illness H&P Date: 12/28/17 Chief Complaint: Altered mental status Patient is a 42-year-old female with a known history of seizure disorder, bipolar disorder, depression, history of suicidal ideation and opiate dependence , restless leg syndrome and other multiple medical problems was brought to the hospital with altered mental status. Patient has been treated for restless leg syndrome with tramadol for the past 10 years which she has been taking. Patient ran out of tramadol on Friday and patient was not feeling well so she went to [facility] on Friday and was given 2 tablets which helped with symptoms that she was having. He has for her mother patient's restless leg syndrome symptoms seems to be recurring yesterday evening and became severe at about 7 PM. At that point patient was unable to answer questions and was having spasms affecting her legs and also in the arms. Patient was also having altered sensorium and patient was eventually brought to ER for further evaluation. Patient does take Ultram 100 mg [address] head was done in the ER showed no acute intracranial abnormality. Patient also developed fever in the ER and prompted to that lumbar puncture to rule out meningitis. CSF fluid analysis showed no signs of infection. Culture report is still pending. While in the ER patient became more agitated and combative. Patient was given morphine and Valium and Haldol which did not come her down. Patient was initially sedated and intubated. Patient was seen by pulmonary and neurology. History was taken from patient's mother at bedside and medical records and ER note. Patient is currently sedated and intubated. UDS positive for benzodiazepines. Review of Systems Review of systems could not be up and from the patient Past Medical History Past Medical History: Seizure Disorder Additional Past Medical History / Comment(s): Bipolar disorder, depression, previous history of suicidal ideation, previous opiate dependence, previous history of intentional suicide, restless leg syndrome, previous history of right shoulder dislocation, chronic anxiety, muscle spasms, severe problems related to social support group, and chronic psychiatric disorder History of Any Multi-Drug Resistant Organisms: None Reported Additional Past Surgical History / Comment(s): Biopsies of left breast cysts. Past Anesthesia/Blood Transfusion Reactions: No Reported Reaction Past Psychological History: Anxiety, Bipolar, Depression, PTSD Smoking Status: Current every day smoker Past Alcohol Use History: None Reported Past Drug Use History: None Reported - Past Family History Father Family Medical History: Hypertension Medications and Allergies Home Medications Medication Instructions Recorded Confirmed Type Sertraline [Zoloft] 200 mg PO HS 07/05/15 12/28/17 History QUEtiapine [SEROquel] 100 mg PO HS 02/14/16 12/28/17 History lamoTRIgine [LaMICtal] 200 mg PO HS 02/14/16 12/28/17 History Diazepam [Valium] 5 mg PO DAILY PRN 12/28/17 12/28/17 History Eszopiclone [Lunesta] 3 mg PO HS 12/28/17 12/28/17 History traMADol HCL [Ultram] 100 mg PO Q6HR PRN 12/28/17 12/28/17 History Allergies Allergy/AdvReac Type Severity Reaction Status Date / Time suvorexant [From [facility]] AdvReac SLEEP Verified 12/28/17 10:38 PARALYSIS trazodone AdvReac SLEEP Verified 12/28/17 10:38 PARALYSIS Physical Exam Vitals: Vital Signs Temp Pulse Resp BP Pulse Ox 12/28/17 15:00 120 H 26 H 130/65 93 L 12/28/17 14:45 125 H 27 H 159/95 93 L 12/28/17 14:30 142 H 26 H 159/95 96 12/28/17 14:15 148 H 30 H 123/86 96 12/28/17 14:00 108 H 28 H 123/86 97 12/28/17 13:45 116 H 30 H 129/59 96 12/28/17 13:30 97.9 F 115 H 26 H 106/68 97 12/28/17 12:32 118 H 18 161/78 96 12/28/17 12:00 102.3 F H 62 22 131/62 99 12/28/17 10:00 127 H 18 125/76 96 12/28/17 09:00 101 F H 115 H 20 132/76 96 12/28/17 08:00 101.6 F H 120 H 20 144/78 96 12/28/17 05:58 99.8 F H 116 H 17 153/89 95 12/28/17 01:27 100.2 F H 127 H 17 147/62 98 Intake and Output 12/28/17 12/28/17 12/28/17 06:59 14:59 22:59 Intake Total 125 125 Output Total 400 50 Balance -275 75 Intake: IV 125 125 Sodium Chloride 0.9% 1, 125 125 000 ml @ 125 mls/hr IV . Q8H [facility] Rx#:[id number] Output: Urine 400 50 Other: Weight 77.111 kg 72.9 kg PHYSICAL EXAMINATION: Patient is lying in the bed comfortably, patient is currently sedated and intubated. HEENT: Normocephalic. Neck is supple. Pupils reactive. Nostrils clear. Oral cavity is moist. Ears reveal no drainage. Neck reveals no JVD, carotid bruits, or thyromegaly. CHEST EXAMINATION: Trachea is central. Symmetrical expansion. Lung sethi clear to auscultation and percussion. CARDIAC: Normal S1, S2 with no gallops. No murmurs ABDOMEN: Soft. Bowel sounds normal. No organomegaly. No abdominal bruits. Extremities: reveal no edema. No clubbing or cyanosis Neurologically No focal deficits noted Skin: No rash or skin lesions. Psychiatric: Could not be assessed completely Musculoskeletal: No joint swelling or deformity. Normal range of motion. Results CBC & Chem 7: 12/28/17 02:17 12/28/17 02:17 Labs: Abnormal Lab Results - Last 24 Hours (Table) 12/28/17 12/28/17 12/28/17 Range/Units 02:15 02:17 02:17 WBC 24.8 H (3.8-10.6) k/uL Neutrophils # 21.4 H (1.3-7.7) k/uL Potassium 3.2 L (3.5-5.1) mmol/L Chloride 108 H (98-107) mmol/L Carbon Dioxide 14 L (22-30) mmol/L Creatinine 1.10 H (0.52-1.04) mg/dL Glucose 192 H (74-99) mg/dL POC Glucose (mg/dL) (75-99) mg/dL Plasma Lactic Acid Danilo (0.7-2.0) mmol/L Total Protein 8.4 H (6.3-8.2) g/dL Urine Protein 2+ H (Negative) Urine Blood Moderate H (Negative) Calcium Oxalate Crystal Few H (None) /hpf Urine Mucus Rare H (None) /hpf U Benzodiazepines Scrn (NotDetected) 12/28/17 12/28/1718 Range/Units 02:17 04:25 13:18 WBC (3.8-10.6) k/uL Neutrophils # (1.3-7.7) k/uL Potassium (3.5-5.1) mmol/L Chloride (98-107) mmol/L Carbon Dioxide (22-30) mmol/L Creatinine (0.52-1.04) mg/dL Glucose (74-99) mg/dL POC Glucose (mg/dL) 118 H (75-99) mg/dL Plasma Lactic Acid Danilo 2.3 H* (0.7-2.0) mmol/L Total Protein (6.3-8.2) g/dL Urine Protein (Negative) Urine Blood (Negative) Calcium Oxalate Crystal (None) /hpf Urine Mucus (None) /hpf U Benzodiazepines Scrn Detected H (NotDetected) Microbiology - Last 24 Hours (Table) 12/28/17 10:00 CSF Gram Stain - Preliminary Cerebral Spinal Fluid CSF Culture - Preliminary 12/28/17 02:15 Urine Culture - Preliminary Urine,Catheterized Thrombosis Risk Factor Assmnt - DVT/VTE Prophylaxis DVT/VTE Prophylaxis: Pharmacologic Prophylaxis ordered - Choose All That Apply Any of the Below Risk Factors Present?: No Other Risk Factors: No Other congenital or acquired thrombophilia - If yes, enter type in comment: No Thrombosis Risk Factor Assessment Level: Very Low Risk Assessment and Plan Assessment: Acute psychosis with agitation and combativeness. Currently sedated and intubated. Possible opiate/ ultram WITHDRAWAL. Lactic acidosis 2.3 Bipolar disorder/depression/opiate dependence History of suicidal ideation and history of intestinal suicide Restless leg syndrome Chronic anxiety and Muscle spasms Severe problems related to social support group and chronic psychiatric disorder. DVT prophylaxis Plan: Patient be continued on IV fluids and supportive management. Neurology and pulmonary is following. We will follow CSF culture report including viral PCR. No signs of infection was noted. Follow up closely and further recommendations based on the clinical course. Prognosis is guarded. Time with Patient: Greater than 30
[2017-12-29 00:02] LABS: Glucose,Whole Blood 116 mg/dL (75-99)
--- NOTE | 2017-12-29 00:25 | PCN ---
PROCEDURE NOTE ENDOTRACHEAL INTUBATION: PREOP DIAGNOSIS: Acute delirium/agitation. POSTOP DIAGNOSIS: Acute delirium/agitation. Respiratory compromise. A time-out was completed verifying correct patient, procedure, site, positioning, and implant(s) or special equipment if applicable. The patient was positioned appropriately and a #4 MAC blade and I intubated the patient by a #8 orotracheal tube was placed under direct laryngoscopy. The tube was anchored at 22 cm at the teeth. Correct placement was confirmed by presence of bilateral breath sounds without air sounds in the abdomen on auscultation. An end-tidal CO2 monitor was also used to confirm tracheal placement of the ET tube. A chest x-ray was ordered to assess for pneumothorax and verify endotracheal tube placement. The patient tolerated the procedure well and there were no complications. MMODL / IJN: [id number] /
[2017-12-29] MEDS: traMADol 50 MG TAB PO PRN ×3 (00:30→15:52)
--- NOTE | 2017-12-29 00:31 | PCN ---
PROCEDURE NOTE TRIPLE LUMEN CATHETER PLACEMENT: PREOPERATIVE DIAGNOSIS: Acute delirium/agitation. POSTOPERATIVE DIAGNOSIS: Acute delirium/agitation. Indication: Hemodynamic monitoring/Intravenous access. A time-out was completed verifying correct patient, procedure, site, positioning, and implant(s) or special equipment if applicable. The patient was placed in a dependent position appropriate for triple lumen catheter placement based on the vein to be cannulated. The patient's right groin was prepped and draped in sterile fashion. 1% Lidocaine was used to anesthetize the surrounding skin area. A triple lumen 9F Cordis catheter was introduced into the common femoral vein using Seldinger technique. The catheter was threaded smoothly over the guide wire and appropriate blood return was obtained. Each lumen of the catheter was evacuated of air and flushed with sterile saline. The catheter was then sutured in place to the skin and a sterile dressing applied. Perfusion to the extremity distal to the point of catheter insertion was checked and found to be adequate. No bedside complications. MMODL / IJN: [id number] /
[2017-12-29] MEDS: PROPOFOL 1,000 MG in EMPTY BAG 1 BAG IV SCH ×2 (02:48→21:47)
[2017-12-29 04:20] LABS: ABG PCO2 34 mmHg (35-45); ABG PH 7.36 (7.35-7.45); ABG PO2 209 mmHg (83-108)
[2017-12-29 04:21] LABS: ABG Base Excess -5.8 mmol/L; ABG HCO3 20 mmol/L (21-25); ABG TCO2 21 mmol/L (19-24)
[2017-12-29 05:45] LABS: Basophils % (A) 0 %; Eosinophils # (A) 0.2 k/uL (0-0.7); Eosinophils % (A) 1 %; HCT 31.1 % (34.0-46.0); Lymphocytes # (A) 3.5 k/uL (1.0-4.8); Lymphocytes % (A) 31 %; MCH 31.1 pg (25.0-35.0); MCHC 33.5 g/dL (31.0-37.0); MCV 92.8 fL (80.0-100.0); Mean Platelet Volume 6.5; Monocytes # (A) 0.5 k/uL (0-1.0); Monocytes % (A) 5 %; Neutrophils # (A) 6.9 k/uL (1.3-7.7); Neutrophils % (A) 62 %; Platelet Count 241 k/uL (150-450); RBC 3.35 m/uL (3.80-5.40); RDW 14.8 % (11.5-15.5); WBC 11.1 k/uL (3.8-10.6)
[2017-12-29 05:57] LABS: HGB 10.4 gm/dL (11.4-16.0)
[2017-12-29 05:58] LABS: ALT 29 U/L (9-52); AST 62 U/L (14-36); Albumin 3.3 g/dL (3.5-5.0); Alkaline Phosphatase 82 U/L (38-126); Anion Gap 11 mmol/L; Blood Urea Nitrogen 5 mg/dL (7-17); Calcium 8.1 mg/dL (8.4-10.2); Carbon Dioxide 20 mmol/L (22-30); Chloride 113 mmol/L (98-107); Glucose 92 mg/dL (74-99); Magnesium 2.1 mg/dL (1.6-2.3); Phosphorus 2.5 mg/dL (2.5-4.5); Potassium 3.3 mmol/L (3.5-5.1); Sodium 144 mmol/L (137-145); Total Bilirubin 0.2 mg/dL (0.2-1.3); Total Protein 5.8 g/dL (6.3-8.2)
[2017-12-29] MEDS ORDERED: Potassium Replacement Protocol 1 EACH MISC MISCELLANE PRN (06:21)
[2017-12-29 06:26] LABS: Glucose,Whole Blood 97 mg/dL (75-99)
--- NOTE | 2017-12-29 07:13 | XR ---
EXAMINATION TYPE: XR chest 1V portable DATE OF EXAM: 12/29/2017 COMPARISON: Prior chest 12/28/2017 HISTORY: Intubated TECHNIQUE: Single frontal view of the chest is obtained. FINDINGS: Endotracheal tube and NG tube are overlying appropriate positions, distal tip the NG tube is not included on the exam. No evident pneumothorax or pleural effusion. Exam is expiratory and rota gabriel. Patchy basilar density is present. Heart size is likely stable. There are overlying cardiac lead s. IMPRESSION: Basilar atelectasis, correlate to exclude pneumonia.
--- NOTE | 2017-12-29 07:43 | P.PN ---
Subjective Progress Note Date: 12/29/17 Principal diagnosis: Continued care with altered mental status. This is a 42-year-old white female who is essentially admitted for altered mental status. Supposedly she ran out of her Ultram this past week and has had significant problems related to possible withdrawal. History of seizure disorder and bipolar disorder in the past. She is not intubated secondary to combativeness. Laboratory examination is otherwise noted. Objective - Vital Signs Vital signs: Vital Signs Temp 98.7 F 12/29/17 04:00 Pulse 66 12/29/17 06:15 Resp 13 12/29/17 06:15 BP 95/58 12/29/17 06:15 Pulse Ox 100 12/29/17 06:15 Intake & Output 12/28/17 12/29/17 12/29/17 18:59 06:59 18:59 Intake Total 2621.422 1808.457 Output Total 700 1060 Balance 1921.422 748.457 Weight 72.9 kg 71.9 kg Intake: IV 2500 1500 Sodium Chloride 0.9% 1, 500 1500 000 ml @ 125 mls/hr IV . Q8H [facility] Rx#:[id number] Sodium Chloride 0.9% 2, 2000 000 ml @ 999 mls/hr IV . Q2H1M [facility] Rx#:[id number] Intake, IV Titration 61.422 248.457 Amount Norepinephrine 16 mg In 26.477 Sodium Chloride 0.9% 250 ml @ Titrate IV .Q0M [facility] Rx#:[id number] Propofol 1,000 mg In 61.422 221.980 Empty Bag 1 bag @ Titrate IV .Q0M [facility] Rx#: [id number] Oral 60 60 Output: Urine 700 1060 Other: Voiding Method Indwelling Catheter Indwelling Catheter - Constitutional General appearance: Present: no acute distress - Respiratory Respiratory: bilateral: CTA - Cardiovascular Rhythm: regular Heart sounds: normal: S1, S2 Abnormal Heart Sounds: Absent: S3 Gallop - Gastrointestinal General gastrointestinal: Present: soft. Absent: tenderness - Psychiatric Psychiatric Comment(s): Sedated otherwise - Labs CBC & Chem 7: 12/29/17 05:31 12/29/17 05:31 Labs: Abnormal Lab Results - Last 24 Hours (Table) 12/28/17 12/28/17 12/28/17 Range/Units 13:18 15:47 18:59 WBC (3.8-10.6) k/uL RBC (3.80-5.40) m/uL Hgb (11.4-16.0) gm/dL Hct (34.0-46.0) % ABG pH 7.34 L 7.30 L (7.35-7.45) ABG pCO2 33 L (35-45) mmHg ABG pO2 391 H 210 H (83-108) mmHg ABG HCO3 18 L 17 L (21-25) mmol/L ABG O2 Saturation 100.0 H 100.0 H (94-97) % Potassium (3.5-5.1) mmol/L Chloride (98-107) mmol/L Carbon Dioxide (22-30) mmol/L BUN (7-17) mg/dL POC Glucose (mg/dL) 118 H (75-99) mg/dL Calcium (8.4-10.2) mg/dL AST (14-36) U/L Total Protein (6.3-8.2) g/dL Albumin (3.5-5.0) g/dL 12/29/17 12/29/17 12/29/17 Range/Units 00:00 03:59 05:31 WBC 11.1 H (3.8-10.6) k/uL RBC 3.35 L (3.80-5.40) m/uL Hgb 10.4 L D (11.4-16.0) gm/dL Hct 31.1 L (34.0-46.0) % ABG pH (7.35-7.45) ABG pCO2 34 L (35-45) mmHg ABG pO2 209 H (83-108) mmHg ABG HCO3 20 L (21-25) mmol/L ABG O2 Saturation 100.0 H (94-97) % Potassium (3.5-5.1) mmol/L Chloride (98-107) mmol/L Carbon Dioxide (22-30) mmol/L BUN (7-17) mg/dL POC Glucose (mg/dL) 116 H (75-99) mg/dL Calcium (8.4-10.2) mg/dL AST (14-36) U/L Total Protein (6.3-8.2) g/dL Albumin (3.5-5.0) g/dL 12/29/17 Range/Units 05:31 WBC (3.8-10.6) k/uL RBC (3.80-5.40) m/uL Hgb (11.4-16.0) gm/dL Hct (34.0-46.0) % ABG pH (7.35-7.45) ABG pCO2 (35-45) mmHg ABG pO2 (83-108) mmHg ABG HCO3 (21-25) mmol/L ABG O2 Saturation (94-97) % Potassium 3.3 L (3.5-5.1) mmol/L Chloride 113 H (98-107) mmol/L Carbon Dioxide 20 L (22-30) mmol/L BUN 5 L (7-17) mg/dL POC Glucose (mg/dL) (75-99) mg/dL Calcium 8.1 L (8.4-10.2) mg/dL AST 62 H (14-36) U/L Total Protein 5.8 L (6.3-8.2) g/dL Albumin 3.3 L (3.5-5.0) g/dL Microbiology - Last 24 Hours (Table) 12/28/17 10:00 CSF Gram Stain - Preliminary Cerebral Spinal Fluid CSF Culture - Preliminary 12/28/17 02:15 Urine Culture - Preliminary Urine,Catheterized Assessment and Plan (1) Acute metabolic encephalopathy Current Visit: Yes Status: Acute Code(s): G93.41 - METABOLIC ENCEPHALOPATHY SNOMED Code(s): 14107301 (2) Altered mental status Current Visit: Yes Status: Acute Code(s): R41.82 - ALTERED MENTAL STATUS, UNSPECIFIED SNOMED Code(s): 929754756 (3) Withdrawal from opioids Current Visit: Yes Status: Acute Code(s): F11.23 - OPIOID DEPENDENCE WITH WITHDRAWAL SNOMED Code(s): 62141268 (4) Depression Current Visit: No Status: Acute Code(s): F32.9 - MAJOR DEPRESSIVE DISORDER, SINGLE EPISODE, UNSPECIFIED SNOMED Code(s): 87952281 (5) Seizures, generalized convulsive Current Visit: No Status: Acute Code(s): R56.9 - UNSPECIFIED CONVULSIONS SNOMED Code(s): 350241116 Plan: Continue supportive care at this time. Check CBC and CMP in a.m. per Appreciate multiple consultants input. We'll continue to follow. Prognosis is guarded.
[2017-12-29] MEDS: PANTOPRAZOLE 40 MG/10 ML VIAL IVP SCH (08:00)
[2017-12-29] MEDS: CHLORHEXIDINE GLUCONATE 15 ML CUP MUCOUS MEM SCH ×2 (08:00→20:17)
[2017-12-29] MEDS: POTASSIUM BICARBONATE/CIT AC 20 MEQ TABLET.EFF NG-TUBE SCH ×2 (08:00→09:09)
[2017-12-29] MEDS: HEPARIN SODIUM,PORCINE 5,000 UNIT/ML 1 ML VIAL SQ SCH ×2 (08:01→15:52)
--- NOTE | 2017-12-29 11:53 | P.PN ---
Subjective Progress Note Date: 12/29/17 Principal diagnosis: Acute psychosis with extreme agitation requiring intubation and mechanical ventilation A 42-year-old female patient with known history of severe depression/bipolar disorder along with history of chronic muscle spasm restless leg syndrome has been taking Ultram 100 mg 3 times a day for many years. The patient has been hospitalized in the past for suicidal attempts and she has not seen a psychiatrist for the past 3 years. There is a vague remote history of seizure disorder in the past. The patient was brought in to the burst department this morning because of altered mentation. She was not able to give any history and the history was obtained from the family including the father and the mother with home the patient lives. The family claims that the patient was not able to get her tramadol refills and she is started to withdrawal from being off opiates and tramadol 9 that she is very much dependent on this medication. She started getting altered and confused and combative and agitated. In the burst department the patient was very much agitated and she was unable to answer any questions. She was moving all 4 extremities without any limitation. She was placed and 2 points restraint and she was given a total of 9 mg of morphine, 100 g of fentanyl and 20 mg of Geodon. A lumbar puncture was also done in the emergency department did came back negative for meningitis. The patient got transferred to the intensive care unit and she was extremely agitated to the point where she was combative and was very hard to control her agitation. I give this patient additional 5 mg of Valium, a total of 10 mg of Haldol and 5 mg of morphine. Unfortunately, she continued to do the same behavior. She would yell and scream and the very agitated to the point where she was pulling out her IV lines and now this medication were given to him was effective. I discussed the case with the neurologist. Discussed the case with the family. I control her agitation with a total of 150 mg of Diprivan. This was given a bolus and following that the patient was given Nimbex and she was intubated and placed on a mechanical ventilator. Currently Diprivan is running at 50 mics per KG per minute. She is oxygenating well and she is well ventilating and success with the mechanical ventilator. She is an assist-control of 20, tidal volume 500, FiO2 of 100% and a PEEP of 5. She did have some hypotension postintubation with a blood pressure of mid 80s and currently is receiving IV fluids. Chest x-ray and blood gases are still pending for now. CAT scan of the brain that was done the burst department showed no acute abnormalities. No seizure activity was noted. No head trauma. No neck stiffness. She did have a 1 spike of temperature. Her lactic acid was at 2.1. Be urine was 16 creatinine is 1.1 glucose within normal limits and chest x-ray at time of admission is within normal limits. Patient was reevaluated today on 12/29/2017, sedated, on propofol drip, remains on mechanical ventilation, in no distress. Ventilator settings are tidal volume of 450 assist-control rate of 12 FiO2 is 35% and PEEP of 5. ABG showed a pO2 of 29 pCO2 of 34 pH of 7.36. He is relatively normal, basic metabolic profile is normal except for low potassium of 3.3 being corrected as per protocol. Chest x-ray showed mostly bibasilar atelectasis. No clear-cut evidence of infiltrate. Objective - Vital Signs Vital signs: Vital Signs Temp 97.6 F 12/29/17 08:00 Pulse 72 12/29/17 10:59 Resp 13 12/29/17 10:59 BP 107/66 12/29/17 10:59 Pulse Ox 99 12/29/17 10:59 Intake & Output 12/28/17 12/29/17 12/29/17 18:59 06:59 18:59 Intake Total 2621.422 1808.457 625 Output Total 700 1060 770 Balance 1921.422 748.457 -145 Weight 72.9 kg 71.9 kg Intake: IV 2500 1500 625 Sodium Chloride 0.9% 1, 500 1500 625 000 ml @ 125 mls/hr IV . Q8H [facility] Rx#:[id number] Sodium Chloride 0.9% 2, 2000 000 ml @ 999 mls/hr IV . Q2H1M [facility] Rx#:[id number] Intake, IV Titration 61.422 248.457 Amount Norepinephrine 16 mg In 26.477 Sodium Chloride 0.9% 250 ml @ Titrate IV .Q0M [facility] Rx#:[id number] Propofol 1,000 mg In 61.422 221.980 Empty Bag 1 bag @ Titrate IV .Q0M [facility] Rx#: [id number] Oral 60 60 Output: Gastric Drainage 600 Urine 700 1060 170 Other: Voiding Method Indwelling Catheter Indwelling Catheter Indwelling Catheter - Exam Physical Exam: Revealed a 42-year-old female on mechanical ventilation, in no distress. Head: Atraumatic, normocephalic. HEENT:[Neck is supple.] [No neck masses.] [No thyromegaly.] [No JVD.]. Endotracheal tube is intact. PERRLA, EOMI. Chest: [Clear throughout, no crackles, no rhonchi, no wheezes.] Cardiac Exam: [Normal S1 and S2, no S3 gallop, no murmur.] Abdomen: [Soft, nontender, no megaly, no rebound, no guarding, normal bowel sounds.] Extremities: [No clubbing, no edema, no cyanosis.] Neurological Exam: Cannot be assessed, fully sedated, on propofol. Psychiatric: Cannot be assessed at this point, Lymphatics: No lymphadenopathy. - Labs CBC & Chem 7: 12/29/17 05:31 12/29/17 05:31 Labs: Abnormal Lab Results - Last 24 Hours (Table) 12/28/17 12/28/17 12/28/17 Range/Units 13:18 15:47 18:59 WBC (3.8-10.6) k/uL RBC (3.80-5.40) m/uL Hgb (11.4-16.0) gm/dL Hct (34.0-46.0) % ABG pH 7.34 L 7.30 L (7.35-7.45) ABG pCO2 33 L (35-45) mmHg ABG pO2 391 H 210 H (83-108) mmHg ABG HCO3 18 L 17 L (21-25) mmol/L ABG O2 Saturation 100.0 H 100.0 H (94-97) % Potassium (3.5-5.1) mmol/L Chloride (98-107) mmol/L Carbon Dioxide (22-30) mmol/L BUN (7-17) mg/dL POC Glucose (mg/dL) 118 H (75-99) mg/dL Calcium (8.4-10.2) mg/dL AST (14-36) U/L Total Protein (6.3-8.2) g/dL Albumin (3.5-5.0) g/dL 12/29/17 12/29/17 12/29/17 Range/Units 00:00 03:59 05:31 WBC 11.1 H (3.8-10.6) k/uL RBC 3.35 L (3.80-5.40) m/uL Hgb 10.4 L D (11.4-16.0) gm/dL Hct 31.1 L (34.0-46.0) % ABG pH (7.35-7.45) ABG pCO2 34 L (35-45) mmHg ABG pO2 209 H (83-108) mmHg ABG HCO3 20 L (21-25) mmol/L ABG O2 Saturation 100.0 H (94-97) % Potassium (3.5-5.1) mmol/L Chloride (98-107) mmol/L Carbon Dioxide (22-30) mmol/L BUN (7-17) mg/dL POC Glucose (mg/dL) 116 H (75-99) mg/dL Calcium (8.4-10.2) mg/dL AST (14-36) U/L Total Protein (6.3-8.2) g/dL Albumin (3.5-5.0) g/dL 12/29/17 Range/Units 05:31 WBC (3.8-10.6) k/uL RBC (3.80-5.40) m/uL Hgb (11.4-16.0) gm/dL Hct (34.0-46.0) % ABG pH (7.35-7.45) ABG pCO2 (35-45) mmHg ABG pO2 (83-108) mmHg ABG HCO3 (21-25) mmol/L ABG O2 Saturation (94-97) % Potassium 3.3 L (3.5-5.1) mmol/L Chloride 113 H (98-107) mmol/L Carbon Dioxide 20 L (22-30) mmol/L BUN 5 L (7-17) mg/dL POC Glucose (mg/dL) (75-99) mg/dL Calcium 8.1 L (8.4-10.2) mg/dL AST 62 H (14-36) U/L Total Protein 5.8 L (6.3-8.2) g/dL Albumin 3.3 L (3.5-5.0) g/dL Microbiology - Last 24 Hours (Table) 12/28/17 10:00 CSF Gram Stain - Preliminary Cerebral Spinal Fluid CSF Culture - Preliminary 12/28/17 02:15 Urine Culture - Preliminary Urine,Catheterized Assessment and Plan Assessment: 1 acute psychosis, with extreme agitation failed to respond to routine therapy with a combination of Haldol, opiates and benzodiazepines. Currently intubated on mechanical ventilator on a Diprivan drip 2 acute opiate withdrawal 3 bipolar disorder 4 depression 5 previous history of suicidal attempts 6 chronic Ultram dependence 7 restless leg syndrome 8 chronic anxiety Plan: Continue present supportive care measures, restarted on her usual meds including Ultram, Lamictal, Seroquel, and Zoloft. Labs were all reviewed chest x-ray was reviewed, plan to keep her on mechanical ventilation for the next 24 hours, would likely wean and extubate in the next 24 hours. Nutritional support will be addressed, patient will need to be on enteral feeding. Critical care time is 40 minutes. Time with Patient: Greater than 30
--- NOTE | 2017-12-29 12:42 | P.CN ---
Psychiatric Consult - . Consult date: 12/29/17 Consult:: I reviewed the medical record and attempted to interview the patient. Her nurse reported that prior to admission she had taking 60 tablets of Unisom. suggesting that her delirium is the result of an antihistamine overdose. She is in intubated and on a propofol drip. Please reconsult when she is extubated and able to speak. 12/29/17 12:37 12/29/17 12:41
[2017-12-29 13:05] LABS: Hemoglobin A1C 5.1 % (4.0-6.0)
[2017-12-29] MEDS: SODIUM CHLORIDE 0.9% 1,000 ML IV SCH ×3 (18:26→23:00)
[2017-12-29] MEDS: MORPHINE SULFATE 2 MG/ML SYRINGE IVP PRN (18:47)
[2017-12-29] MEDS: lamoTRIgine 100 MG TAB PO SCH (20:18)
[2017-12-29] MEDS: QUEtiapine 100 MG TAB PO SCH (20:18)
--- NOTE | 2017-12-29 22:51 | P.PN ---
Subjective Progress Note Date: 12/29/17 This patient is a 42-year-old female who is seen today in the intensive care unit. She remains intubated on the ventilator. She was admitted with symptoms of acute psychosis and possible withdrawal syndrome secondary to tramadol use. Patient underwent lumbar puncture in the emergency room due to altered mental status which is been negative thus far. She underwent routine EEG yesterday which was reviewed and was showing only mild slowing with no epileptic discharges seen. The patient has a long-standing psychiatric history. She is on multiple medications. Psychiatry has been consulted for their further evaluation and recommendations regarding her medications. Patient remains intubated on the ventilator. We will continue close neurological follow-up for the patient and hopefully she will begin weaning parameters soon. Her overall prognosis at this time remains very guarded. Objective - Vital Signs Vital signs: Vital Signs Temp 98.0 F 12/29/17 20:00 Pulse 68 12/29/17 22:00 Resp 12 12/29/17 22:00 BP 94/51 12/29/17 22:00 Pulse Ox 99 12/29/17 22:00 Intake & Output 12/29/17 12/29/17 12/30/17 06:59 18:59 06:59 Intake Total 4989.436 5628 650.533 Output Total 1060 1522 250 Balance 748.457 188 400.533 Weight 71.9 kg 76.4 kg Intake: IV 1500 1500 500 Sodium Chloride 0.9% 1, 1500 1500 500 000 ml @ 125 mls/hr IV . Q8H RUBIA Rx#:[id number] Intake, IV Titration 248.457 100 0.533 Amount Norepinephrine 16 mg In 26.477 Sodium Chloride 0.9% 250 ml @ Titrate IV .Q0M RUBIA Rx#:[id number] Propofol 1,000 mg In 221.980 100 0.533 Empty Bag 1 bag @ Titrate IV .Q0M RUBIA Rx#: [id number] Oral 60 Tube Feeding 60 120 Other 50 30 Output: Gastric Drainage 600 Urine 1060 922 250 Other: Voiding Method Indwelling Catheter Indwelling Catheter Indwelling Catheter - Exam Physical examination: PHYSICAL EXAMINATION: Patient is intubated on the ventilator and is resting quietly. VITAL SIGNS: Blood pressure is [100/56]. Heart rate is [73]. Respiration is [12] . Temperature is [97.5]. HEENT: Head is atraumatic, neck is supple, there were no carotid bruits. CHEST: Lungs are clear to auscultation and percussion. CARDIAC: S1, S2 normal rate and rhythm. There is no murmur. ABDOMEN: Soft and nontender. Bowel sounds are present. EXTREMITIES: There is no pedal edema. Peripheral pulses are present. Neurological examination: Patient remains intubated on the ventilator in the intensive care unit. There is been no significant change in her neurological exam findings today. - Labs CBC & Chem 7: 12/29/17 05:31 12/29/17 05:31 Labs: Abnormal Lab Results - Last 24 Hours (Table) 12/29/17 12/29/17 12/29/17 Range/Units 00:00 03:59 05:31 WBC 11.1 H (3.8-10.6) k/uL RBC 3.35 L (3.80-5.40) m/uL Hgb 10.4 L D (11.4-16.0) gm/dL Hct 31.1 L (34.0-46.0) % ABG pCO2 34 L (35-45) mmHg ABG pO2 209 H (83-108) mmHg ABG HCO3 20 L (21-25) mmol/L ABG O2 Saturation 100.0 H (94-97) % Potassium (3.5-5.1) mmol/L Chloride (98-107) mmol/L Carbon Dioxide (22-30) mmol/L BUN (7-17) mg/dL POC Glucose (mg/dL) 116 H (75-99) mg/dL Calcium (8.4-10.2) mg/dL AST (14-36) U/L Total Protein (6.3-8.2) g/dL Albumin (3.5-5.0) g/dL 12/29/17 Range/Units 05:31 WBC (3.8-10.6) k/uL RBC (3.80-5.40) m/uL Hgb (11.4-16.0) gm/dL Hct (34.0-46.0) % ABG pCO2 (35-45) mmHg ABG pO2 (83-108) mmHg ABG HCO3 (21-25) mmol/L ABG O2 Saturation (94-97) % Potassium 3.3 L (3.5-5.1) mmol/L Chloride 113 H (98-107) mmol/L Carbon Dioxide 20 L (22-30) mmol/L BUN 5 L (7-17) mg/dL POC Glucose (mg/dL) (75-99) mg/dL Calcium 8.1 L (8.4-10.2) mg/dL AST 62 H (14-36) U/L Total Protein 5.8 L (6.3-8.2) g/dL Albumin 3.3 L (3.5-5.0) g/dL Microbiology - Last 24 Hours (Table) 12/28/17 02:15 Urine Culture - Final Urine,Catheterized 12/28/17 10:00 CSF Gram Stain - Preliminary Cerebral Spinal Fluid CSF Culture - Preliminary Assessment and Plan (1) Acute metabolic encephalopathy Current Visit: Yes Status: Acute Code(s): G93.41 - METABOLIC ENCEPHALOPATHY SNOMED Code(s): 32380355 (2) History of psychiatric disorder Current Visit: Yes Status: Acute Code(s): Z86.59 - PERSONAL HISTORY OF OTHER MENTAL AND BEHAVIORAL DISORDERS SNOMED Code(s): 943680338 (3) Leukocytosis Current Visit: Yes Status: Acute Code(s): D72.829 - ELEVATED WHITE BLOOD CELL COUNT, UNSPECIFIED SNOMED Code(s): 470090993 (4) Seizures, generalized convulsive Current Visit: No Status: Acute Code(s): R56.9 - UNSPECIFIED CONVULSIONS SNOMED Code(s): 390944116 (5) Depression Current Visit: No Status: Acute Code(s): F32.9 - MAJOR DEPRESSIVE DISORDER, SINGLE EPISODE, UNSPECIFIED SNOMED Code(s): 11157537 Plan: This patient is a 42-year-old female currently in the intensive care unit following possible withdrawal syndrome from tramadol. She became very agitated and developed acute psychosis. She was intubated yesterday and was sedated. She remains intubated on the ventilator in the ICU today. She underwent a routine EEG yesterday to rule out seizure activity and this did come back negative for active seizure focus. She is being closely monitored in the intensive care unit. There is been no new findings in terms of her neurological exam. She did undergo lumbar puncture in the emergency room on admission which was negative for any evidence of acute meningitis. Would continue close monitoring of her condition in the ICU at this time. Hopefully she will begin weaning parameters soon. Her overall prognosis at this time remains very guarded.
[2017-12-30] MEDS: HEPARIN SODIUM,PORCINE 5,000 UNIT/ML 1 ML VIAL SQ SCH ×3 (00:01→17:40)
[2017-12-30] MEDS: PROPOFOL 1,000 MG in EMPTY BAG 1 BAG IV SCH ×9 (01:05→23:11)
[2017-12-30 01:41] LABS: Glucose,Whole Blood 83 mg/dL (75-99)
[2017-12-30] MEDS: MORPHINE SULFATE 2 MG/ML SYRINGE IVP PRN ×3 (03:08→06:17)
[2017-12-30 05:43] LABS: Basophils % (A) 0 %; Eosinophils # (A) 0.2 k/uL (0-0.7); Eosinophils % (A) 2 %; HCT 29.1 % (34.0-46.0); HGB 9.5 gm/dL (11.4-16.0); Lymphocytes # (A) 2.8 k/uL (1.0-4.8); Lymphocytes % (A) 33 %; MCH 30.5 pg (25.0-35.0); MCHC 32.5 g/dL (31.0-37.0); MCV 93.8 fL (80.0-100.0); Mean Platelet Volume 6.8; Monocytes # (A) 0.4 k/uL (0-1.0); Monocytes % (A) 5 %; Neutrophils # (A) 4.9 k/uL (1.3-7.7); Neutrophils % (A) 58 %; Platelet Count 196 k/uL (150-450); RDW 14.6 % (11.5-15.5); WBC 8.4 k/uL (3.8-10.6)
[2017-12-30 05:57] LABS: ALT 28 U/L (9-52); AST 42 U/L (14-36); Albumin 2.8 g/dL (3.5-5.0); Alkaline Phosphatase 74 U/L (38-126); Anion Gap 7 mmol/L; Blood Urea Nitrogen 5 mg/dL (7-17); Calcium 8.1 mg/dL (8.4-10.2); Carbon Dioxide 20 mmol/L (22-30); Chloride 112 mmol/L (98-107); Glucose 90 mg/dL (74-99); Magnesium 2.1 mg/dL (1.6-2.3); Phosphorus 3.3 mg/dL (2.5-4.5); Potassium 3.4 mmol/L (3.5-5.1); Sodium 139 mmol/L (137-145); Total Bilirubin <0.1 mg/dL (0.2-1.3); Total Protein 5.3 g/dL (6.3-8.2)
[2017-12-30 06:12] LABS: Glucose,Whole Blood 106 mg/dL (75-99)
[2017-12-30] MEDS: INSULIN ASPART 100 UNIT/ML 1 ML 10 ML VIAL SQ SCH ×3 (06:17→17:45)
[2017-12-30] MEDS: SODIUM CHLORIDE 0.9% 1,000 ML IV SCH ×2 (06:17→14:16)
[2017-12-30] MEDS: POTASSIUM BICARBONATE/CIT AC 20 MEQ TABLET.EFF NG-TUBE SCH ×2 (07:09→08:06)
[2017-12-30] MEDS: PANTOPRAZOLE 40 MG/10 ML VIAL IVP SCH (08:05)
[2017-12-30] MEDS: CHLORHEXIDINE GLUCONATE 15 ML CUP MUCOUS MEM SCH ×2 (08:06→20:19)
--- NOTE | 2017-12-30 08:06 | XR ---
EXAMINATION TYPE: XR chest 1V portable DATE OF EXAM: 12/30/2017 COMPARISON: Prior chest 12/29/2017 HISTORY: Intubated TECHNIQUE: Single frontal view of the chest is obtained. FINDINGS: Endotracheal tube and NG tube are overlying appropriate positions, distal tip of the NG tu be not included on the exam. Patient is rotated. No evident pneumothorax or pleural effusion. Cardiom ediastinal silhouette, pulmonary vascularity and cassi are stable. Lung volumes and aeration are somew hat improved, there are overlying cardiac leads. IMPRESSION: Some improvement in aeration.
[2017-12-30 08:21] LABS: ABG HCO3 23 mmol/L (21-25); ABG Oxygen Saturation 99.6 % (94-97); ABG PCO2 41 mmHg (35-45); ABG PH 7.35 (7.35-7.45); ABG PO2 135 mmHg (83-108); ABG TCO2 24 mmol/L (19-24)
--- NOTE | 2017-12-30 08:56 | P.PN ---
Subjective Principal diagnosis: Continued care with altered mental status. This is a continue proximal not an 42-year-old white female who is essentially admitted for altered mental status. They have been having difficulty weaning her off of intubation. She has struggled in the last month with tramadol usage and has a history of chronic insomnia. The father is stated that there have been missing pain medications in the household. She has no recent previous history of opiate abuse that she has definite opiate dependence issues. Objective - Vital Signs Vital signs: Vital Signs Temp 98.4 F 12/30/17 04:00 Pulse 64 12/30/17 07:00 Resp 12 12/30/17 07:00 BP 95/61 12/30/17 07:00 Pulse Ox 100 12/30/17 07:00 Intake & Output 12/29/17 12/30/17 12/30/17 18:59 06:59 18:59 Intake Total 1710 2370.000 255.667 Output Total 1522 775 75 Balance 188 1595.000 180.667 Weight 76.4 kg 78.3 kg Intake: IV 1500 1500 125 Sodium Chloride 0.9% 1, 1500 1500 125 000 ml @ 125 mls/hr IV . Q8H [facility] Rx#:[id number] Intake, IV Titration 100 200.000 90.667 Amount Propofol 1,000 mg In 100 200.000 90.667 Empty Bag 1 bag @ Titrate IV .Q0M R[facility]IA Rx#: [id number] Oral 60 Tube Feeding 60 520 40 Other 50 90 Output: Gastric Drainage 600 Urine 922 775 75 Other: Voiding Method Indwelling Catheter Indwelling Catheter - Constitutional General appearance: Present: average body habitus - EENT Eyes: Absent: abnormal pupil - Respiratory Respiratory: bilateral: CTA - Cardiovascular Rhythm: regular Abnormal Heart Sounds: Absent: S3 Gallop - Gastrointestinal General gastrointestinal: Present: soft. Absent: tenderness - Psychiatric Psychiatric: Absent: A&O x's 3 - Labs CBC & Chem 7: 12/30/17 05:24 12/30/17 05:24 Labs: Abnormal Lab Results - Last 24 Hours (Table) 12/28/17 12/30/17 12/30/17 Range/Units 02:17 05:24 05:24 RBC 3.10 L (3.80-5.40) m/uL Hgb 9.5 L (11.4-16.0) gm/dL Hct 29.1 L (34.0-46.0) % ABG pO2 (83-108) mmHg ABG O2 Saturation (94-97) % Potassium 3.4 L (3.5-5.1) mmol/L Chloride 112 H (98-107) mmol/L Carbon Dioxide 20 L (22-30) mmol/L BUN 5 L (7-17) mg/dL POC Glucose (mg/dL) (75-99) mg/dL Calcium 8.1 L (8.4-10.2) mg/dL Total Bilirubin <0.1 L (0.2-1.3) mg/dL AST 42 H (14-36) U/L Total Protein 5.3 L (6.3-8.2) g/dL Albumin 2.8 L (3.5-5.0) g/dL Lamotrigine 25.2 H* (2.0-15.0) ug/mL 12/30/17 12/30/17 Range/Units 06:10 08:00 RBC (3.80-5.40) m/uL Hgb (11.4-16.0) gm/dL Hct (34.0-46.0) % ABG pO2 135 H (83-108) mmHg ABG O2 Saturation 99.6 H (94-97) % Potassium (3.5-5.1) mmol/L Chloride (98-107) mmol/L Carbon Dioxide (22-30) mmol/L BUN (7-17) mg/dL POC Glucose (mg/dL) 106 H (75-99) mg/dL Calcium (8.4-10.2) mg/dL Total Bilirubin (0.2-1.3) mg/dL AST (14-36) U/L Total Protein (6.3-8.2) g/dL Albumin (3.5-5.0) g/dL Lamotrigine (2.0-15.0) ug/mL Microbiology - Last 24 Hours (Table) 12/28/17 02:15 Urine Culture - Final Urine,Catheterized 12/28/17 10:00 CSF Gram Stain - Preliminary Cerebral Spinal Fluid CSF Culture - Preliminary Assessment and Plan (1) Acute metabolic encephalopathy Current Visit: Yes Status: Acute Code(s): G93.41 - METABOLIC ENCEPHALOPATHY SNOMED Code(s): 92666569 (2) Altered mental status Current Visit: Yes Status: Acute Code(s): R41.82 - ALTERED MENTAL STATUS, UNSPECIFIED SNOMED Code(s): 457489137 (3) Withdrawal from opioids Current Visit: Yes Status: Acute Code(s): F11.23 - OPIOID DEPENDENCE WITH WITHDRAWAL SNOMED Code(s): 56224869 (4) Depression Current Visit: No Status: Acute Code(s): F32.9 - MAJOR DEPRESSIVE DISORDER, SINGLE EPISODE, UNSPECIFIED SNOMED Code(s): 59407083 (5) Seizures, generalized convulsive Current Visit: No Status: Acute Code(s): R56.9 - UNSPECIFIED CONVULSIONS SNOMED Code(s): 535042112 Plan: Continue current regimen of treatment to see if we can wean off of mechanical ventilation. Check CBC and CMP in a.m. We will go ahead and continue to follow with [facility] [employer]. Prognosis is somewhat guarded. Time with Patient: Less than 30
[2017-12-30 09:25] LABS: VDRL, Qualitative CSF Nonreactive (Nonreactive)
[2017-12-30] MEDS ORDERED: traMADol 50 MG TAB PO SCH (09:30)
--- NOTE | 2017-12-30 10:21 | P.PN ---
Subjective Progress Note Date: 12/30/17 Principal diagnosis: Acute psychosis with extreme agitation requiring intubation and mechanical ventilation possible tramadol withdrawal A 42-year-old female patient with known history of severe depression/bipolar disorder along with history of chronic muscle spasm restless leg syndrome has been taking Ultram 100 mg 3 times a day for many years. The patient has been hospitalized in the past for suicidal attempts and she has not seen a psychiatrist for the past 3 years. There is a vague remote history of seizure disorder in the past. The patient was brought in to the burst department this morning because of altered mentation. She was not able to give any history and the history was obtained from the family including the father and the mother with home the patient lives. The family claims that the patient was not able to get her tramadol refills and she is started to withdrawal from being off opiates and tramadol 9 that she is very much dependent on this medication. She started getting altered and confused and combative and agitated. In the burst department the patient was very much agitated and she was unable to answer any questions. She was moving all 4 extremities without any limitation. She was placed and 2 points restraint and she was given a total of 9 mg of morphine, 100 g of fentanyl and 20 mg of Geodon. A lumbar puncture was also done in the emergency department did came back negative for meningitis. The patient got transferred to the intensive care unit and she was extremely agitated to the point where she was combative and was very hard to control her agitation. I give this patient additional 5 mg of Valium, a total of 10 mg of Haldol and 5 mg of morphine. Unfortunately, she continued to do the same behavior. She would yell and scream and the very agitated to the point where she was pulling out her IV lines and now this medication were given to him was effective. I discussed the case with the neurologist. Discussed the case with the family. I control her agitation with a total of 150 mg of Diprivan. This was given a bolus and following that the patient was given Nimbex and she was intubated and placed on a mechanical ventilator. Currently Diprivan is running at 50 mics per KG per minute. She is oxygenating well and she is well ventilating and success with the mechanical ventilator. She is an assist-control of 20, tidal volume 500, FiO2 of 100% and a PEEP of 5. She did have some hypotension postintubation with a blood pressure of mid 80s and currently is receiving IV fluids. Chest x-ray and blood gases are still pending for now. CAT scan of the brain that was done the burst department showed no acute abnormalities. No seizure activity was noted. No head trauma. No neck stiffness. She did have a 1 spike of temperature. Her lactic acid was at 2.1. Be urine was 16 creatinine is 1.1 glucose within normal limits and chest x-ray at time of admission is within normal limits. Patient was reevaluated today on 12/29/2017, sedated, on propofol drip, remains on mechanical ventilation, in no distress. Ventilator settings are tidal volume of 450 assist-control rate of 12 FiO2 is 35% and PEEP of 5. ABG showed a pO2 of 29 pCO2 of 34 pH of 7.36. He is relatively normal, basic metabolic profile is normal except for low potassium of 3.3 being corrected as per protocol. Chest x-ray showed mostly bibasilar atelectasis. No clear-cut evidence of infiltrate. Patient was reevaluated today on 12/30/2017, awakened from sedation, however as soon as she woke up, became extremely agitated, would not open eyes, but Extreme agitation was noted, and patient was trying to talk to us and a sign language. Mother could not even understand, except she was reading some lateral his. Extreme agitation was noted, patient was also biting on the endotracheal tube, and was not ventilating properly, hence we decided to place back on propofol. Lamictal was placed on hold because of elevated level, patient was restarted on tramadol, will discontinue morphine, ABG showed a pO2 of 135 pCO2 of 41 pH of 7.35. Chest x-ray showed no evidence of active disease CBC is relatively normal. Nutritional support will be initiated today. Remains on GI and DVT prophylaxis. Family is at bedside, I discussed her condition with family, and at this point she is not quite ready to be weaned and extubated. Objective - Vital Signs Vital signs: Vital Signs Temp 98.4 F 12/30/17 04:00 Pulse 64 12/30/17 07:00 Resp 12 12/30/17 07:00 BP 95/61 12/30/17 07:00 Pulse Ox 100 12/30/17 07:00 Intake & Output 12/29/17 12/30/1718 18:59 06:59 18:59 Intake Total 1710 2370.000 321.967 Output Total 1522 775 75 Balance 188 1595.000 246.967 Weight 76.4 kg 78.3 kg Intake: IV 1500 1500 125 Sodium Chloride 0.9% 1, 1500 1500 125 000 ml @ 125 mls/hr IV . Q8H [facility] Rx#:[id number] Intake, IV Titration 100 200.000 156.967 Amount Propofol 1,000 mg In 100 200.000 156.967 Empty Bag 1 bag @ Titrate IV .Q0M [facility] Rx#: [id number] Oral 60 Tube Feeding 60 520 40 Other 50 90 Output: Gastric Drainage 600 Urine 922 775 75 Other: Voiding Method Indwelling Catheter Indwelling Catheter - Exam Physical Exam: Revealed a 42-year-old female on mechanical ventilation, in no distress. Head: Atraumatic, normocephalic. HEENT:[Neck is supple.] [No neck masses.] [No thyromegaly.] [No JVD.]. Endotracheal tube is intact. PERRLA, EOMI. Chest: [Clear throughout, no crackles, no rhonchi, no wheezes.] Cardiac Exam: [Normal S1 and S2, no S3 gallop, no murmur.] Abdomen: [Soft, nontender, no megaly, no rebound, no guarding, normal bowel sounds.] Extremities: [No clubbing, no edema, no cyanosis.] Neurological Exam: Extreme agitation was noted once the propofol was placed on hold, patient was biting on that endotracheal tube, and was difficult to pursue further weaning.. Psychiatric: Cannot be assessed at this point, Lymphatics: No lymphadenopathy. - Labs CBC & Chem 7: 12/30/17 05:24 12/30/17 05:24 Labs: Abnormal Lab Results - Last 24 Hours (Table) 12/28/17 12/30/17 12/30/17 Range/Units 02:17 05:24 05:24 RBC 3.10 L (3.80-5.40) m/uL Hgb 9.5 L (11.4-16.0) gm/dL Hct 29.1 L (34.0-46.0) % ABG pO2 (83-108) mmHg ABG O2 Saturation (94-97) % Potassium 3.4 L (3.5-5.1) mmol/L Chloride 112 H (98-107) mmol/L Carbon Dioxide 20 L (22-30) mmol/L BUN 5 L (7-17) mg/dL POC Glucose (mg/dL) (75-99) mg/dL Calcium 8.1 L (8.4-10.2) mg/dL Total Bilirubin <0.1 L (0.2-1.3) mg/dL AST 42 H (14-36) U/L Total Protein 5.3 L (6.3-8.2) g/dL Albumin 2.8 L (3.5-5.0) g/dL Lamotrigine 25.2 H* (2.0-15.0) ug/mL 12/30/17 12/30/17 Range/Units 06:10 08:00 RBC (3.80-5.40) m/uL Hgb (11.4-16.0) gm/dL Hct (34.0-46.0) % ABG pO2 135 H (83-108) mmHg ABG O2 Saturation 99.6 H (94-97) % Potassium (3.5-5.1) mmol/L Chloride (98-107) mmol/L Carbon Dioxide (22-30) mmol/L BUN (7-17) mg/dL POC Glucose (mg/dL) 106 H (75-99) mg/dL Calcium (8.4-10.2) mg/dL Total Bilirubin (0.2-1.3) mg/dL AST (14-36) U/L Total Protein (6.3-8.2) g/dL Albumin (3.5-5.0) g/dL Lamotrigine (2.0-15.0) ug/mL Microbiology - Last 24 Hours (Table) 12/28/17 02:15 Urine Culture - Final Urine,Catheterized 12/28/17 10:00 CSF Gram Stain - Preliminary Cerebral Spinal Fluid CSF Culture - Preliminary Assessment and Plan Assessment: 1 acute psychosis, with extreme agitation failed to respond to routine therapy with a combination of Haldol, opiates and benzodiazepines. 2 acute opiate withdrawal, extreme agitation requiring intubation, patient is not ready to be extubated today. 3 bipolar disorder 4 depression 5 previous history of suicidal attempts 6 chronic Ultram dependence 7 restless leg syndrome 8 chronic anxiety Plan: Continue present supportive care measures, restarted on her usual meds including Ultram, Lamictal, Seroquel, and Zoloft. Labs were all reviewed chest x-ray was reviewed, plan to keep her on mechanical ventilation for the next 24 hours, would likely wean and extubate in the next 24 hours. Nutritional support will be addressed, patient will need to be on enteral feeding.. While off propofol, patient was noted to be extremely agitated, would not open eyes, Getting agitated and trying to talk to us and a sign language, and she was biting the endotracheal tube, hence decided to place back on propofol. We'll hold Lamictal because of level today, will place back on propofol, and back on Ultram. Had discussion with her family at bedside, continue nutritional support , continue GI and DVT prophylaxis. Critical care time is 40 minutes. Time with Patient: Greater than 30
[2017-12-30] MEDS: traMADol 50 MG TAB PO SCH ×3 (11:42→17:19)
[2017-12-30 12:04] LABS: Glucose,Whole Blood 88 mg/dL (75-99)
[2017-12-30 17:45] LABS: Glucose,Whole Blood 102 mg/dL (75-99)
[2017-12-30] MEDS ORDERED: MORPHINE SULFATE 2 MG/ML SYRINGE IVP PRN ×2 (18:02→22:49)
[2017-12-30] MEDS: QUEtiapine 100 MG TAB PO SCH (20:19)
--- NOTE | 2017-12-30 20:47 | P.PN ---
Subjective Progress Note Date: 12/30/17 This patient is a 42-year-old right-handed white female who was initially admitted to hospital with altered mental status and acute psychosis. Patient had extreme agitation and was felt to be withdrawal syndrome from high-dose of altered. She became very agitated and required mechanical ventilation and was intubated and is now currently seen in the intensive care unit. The patient remains on the ventilator and is currently sedated. Apparently she was given a sedation holiday earlier today but she became again very agitated and was biting on the endotracheal tube. She was not ventilating properly and she was placed back on the ventilator with propofol. Was noted yesterday that her Lamictal level was very elevated at 25.2. Her Lamictal is on hold currently. The patient was restarted on tramadol and is also receiving morphine. She apparently still requires sedation and was not able to be weaned earlier this morning by pulmonary medicine. They will consider retrial tomorrow. We did review her spinal fluid results today with the patient's parents who are at the bedside. There were updated on all of her test results including EEG that was done on admission and was reviewed only slight slowing. EEG background was actually quite good for her condition. She also had undergone a lumbar puncture in the emergency room and CSF Gram stain and cultures are negative thus far. The patient has an extensive psychiatric history. Psychiatry has been consulted. She remains intubated in the ICU and placed back on propofol. Her parents were updated on her current status who were present in the ICU at bedside. We will continue close follow-up with the patient during this admission. We will need to reassess the patient once she is extubated. Overall prognosis at this time remains very guarded. Objective - Vital Signs Vital signs: Vital Signs Temp 97.7 F 12/30/17 17:00 Pulse 81 12/30/17 17:00 Resp 25 H 12/30/17 17:00 BP 107/68 12/30/17 17:00 Pulse Ox 99 12/30/17 17:00 Intake & Output 12/29/17 12/30/17 12/30/17 18:59 06:59 18:59 Intake Total 1710 2370.000 2127.325 Output Total 1883 844 0943 Balance 188 1595.000 212.325 Weight 76.4 kg 78.3 kg 81 kg Intake: IV 1500 1500 1375 Sodium Chloride 0.9% 1, 1500 1500 1375 000 ml @ 125 mls/hr IV . Q8H RUBIA Rx#:[id number] Intake, IV Titration 100 200.000 402.325 Amount Propofol 1,000 mg In 100 200.000 402.325 Empty Bag 1 bag @ Titrate IV .Q0M RUBIA Rx#: [id number] Oral 60 Tube Feeding 60 520 320 Other 50 90 30 Output: Gastric Drainage 600 Urine 436 454 8711 Other: Voiding Method Indwelling Catheter Indwelling Catheter Indwelling Catheter - Exam Physical examination: PHYSICAL EXAMINATION: Patient is intubated on the ventilator and is resting quietly. VITAL SIGNS: Blood pressure is [107/68]. Heart rate is [81]. Respiration is [25] . Temperature is [97.7]. HEENT: Head is atraumatic, neck is supple, there were no carotid bruits. CHEST: Lungs are clear to auscultation and percussion. CARDIAC: S1, S2 normal rate and rhythm. There is no murmur. ABDOMEN: Soft and nontender. Bowel sounds are present. EXTREMITIES: There is no pedal edema. Peripheral pulses are present. Neurological examination: Patient remains intubated on the ventilator in the intensive care unit. There is been no significant change in her neurological exam findings today. Patient is currently on IV propofol drip. She has required some morphine as well as needed. - Labs CBC & Chem 7: 12/30/17 05:24 12/30/17 12:40 Labs: Abnormal Lab Results - Last 24 Hours (Table) 12/28/17 12/30/17 12/30/17 Range/Units 02:17 05:24 05:24 RBC 3.10 L (3.80-5.40) m/uL Hgb 9.5 L (11.4-16.0) gm/dL Hct 29.1 L (34.0-46.0) % ABG pO2 (83-108) mmHg ABG O2 Saturation (94-97) % Potassium 3.4 L (3.5-5.1) mmol/L Chloride 112 H (98-107) mmol/L Carbon Dioxide 20 L (22-30) mmol/L BUN 5 L (7-17) mg/dL POC Glucose (mg/dL) (75-99) mg/dL Calcium 8.1 L (8.4-10.2) mg/dL Total Bilirubin <0.1 L (0.2-1.3) mg/dL AST 42 H (14-36) U/L Total Protein 5.3 L (6.3-8.2) g/dL Albumin 2.8 L (3.5-5.0) g/dL Lamotrigine 25.2 H* (2.0-15.0) ug/mL 12/30/17 12/30/17 12/30/17 Range/Units 06:10 08:00 17:43 RBC (3.80-5.40) m/uL Hgb (11.4-16.0) gm/dL Hct (34.0-46.0) % ABG pO2 135 H (83-108) mmHg ABG O2 Saturation 99.6 H (94-97) % Potassium (3.5-5.1) mmol/L Chloride (98-107) mmol/L Carbon Dioxide (22-30) mmol/L BUN (7-17) mg/dL POC Glucose (mg/dL) 106 H 102 H (75-99) mg/dL Calcium (8.4-10.2) mg/dL Total Bilirubin (0.2-1.3) mg/dL AST (14-36) U/L Total Protein (6.3-8.2) g/dL Albumin (3.5-5.0) g/dL Lamotrigine (2.0-15.0) ug/mL Microbiology - Last 24 Hours (Table) 12/28/17 10:00 CSF Gram Stain - Preliminary Cerebral Spinal Fluid CSF Culture - Preliminary 12/28/17 02:15 Urine Culture - Final Urine,Catheterized Assessment and Plan (1) Acute metabolic encephalopathy Current Visit: Yes Status: Acute Code(s): G93.41 - METABOLIC ENCEPHALOPATHY SNOMED Code(s): 80707600 (2) History of psychiatric disorder Current Visit: Yes Status: Acute Code(s): Z86.59 - PERSONAL HISTORY OF OTHER MENTAL AND BEHAVIORAL DISORDERS SNOMED Code(s): 895044633 (3) Leukocytosis Current Visit: Yes Status: Acute Code(s): D72.829 - ELEVATED WHITE BLOOD CELL COUNT, UNSPECIFIED SNOMED Code(s): 522368030 (4) Seizures, generalized convulsive Current Visit: No Status: Acute Code(s): R56.9 - UNSPECIFIED CONVULSIONS SNOMED Code(s): 616163955 (5) Depression Current Visit: No Status: Acute Code(s): F32.9 - MAJOR DEPRESSIVE DISORDER, SINGLE EPISODE, UNSPECIFIED SNOMED Code(s): 55419149 Plan: This patient is a 42-year-old right-handed white female who was initially admitted to hospital with acute agitation and psychosis. Patient required mechanical ventilation due to agitation and worsening pulmonary status. Patient had been possibly withdrawing from tramadol as she was on very high dose. She had run out of the tramadol for several days prior to admission. She was intubated and subsequently sedated. Her EEG that was done on admission failed to reveal any evidence of seizure activity related to the tramadol use. She remains intubated this evening on the ventilator and was placed back on propofol drip. Tramadol was restarted and she has been requiring morphine as needed for agitation. Patient failed weaning trial earlier this morning. Attempt will be made to wean again tomorrow to see how she does with a sedation holiday. Her overall prognosis at this time remains very guarded. This case was discussed at length with the patient's parents who are at her bedside in the ICU today. All their questions were answered. We will continue close follow-up of this patient in the ICU setting. Her overall prognosis at this time remains very guarded.
[2017-12-30] MEDS ORDERED: CISATRACURIUM 200 MG in SODIUM CHLORIDE 0.9% 180 ML IV SCH (22:45)
[2017-12-30] MEDS: CISATRACURIUM 2 MG/ML 5 ML VIAL IV ONE (23:25)
[2017-12-31 00:10] LABS: Glucose,Whole Blood 93 mg/dL (75-99)
[2017-12-31] MEDS: INSULIN ASPART 100 UNIT/ML 1 ML 10 ML VIAL SQ SCH ×5 (00:48→20:29)
[2017-12-31] MEDS: CISATRACURIUM 2 MG/ML 5 ML VIAL IV ONE (00:50)
[2017-12-31] MEDS: traMADol 50 MG TAB PO SCH ×4 (01:40→18:17)
[2017-12-31] MEDS: ARTIFICIAL TEARS-HYPROMELLOSE DROPS 15 ML BTL BOTH EYES SCH ×4 (01:41→12:05)
[2017-12-31] MEDS: HEPARIN SODIUM,PORCINE 5,000 UNIT/ML 1 ML VIAL SQ SCH ×3 (01:41→15:40)
[2017-12-31] MEDS: SODIUM CHLORIDE 0.9% 1,000 ML IV SCH ×3 (01:41→15:40)
--- NOTE | 2017-12-31 07:34 | XR ---
EXAMINATION TYPE: XR chest 1V portable DATE OF EXAM: 12/31/2017 COMPARISON: Prior chest x-ray 12/30/2017 HISTORY: Intubated TECHNIQUE: Single frontal view of the chest is obtained. FINDINGS: Endotracheal tube is overlying appropriate position. NG tube has been repositioned in the interval and the distal tip is at the midthoracic esophagus level. No evident pneumothorax. Retrocard iac density has developed in the interval. There are overlying cardiac leads. Heart size is likely st able. IMPRESSION: NG tube has withdrawn in the interval. Left lower lobe atelectasis versus pneumonia and possible associated effusion, follow-up recommended.
[2017-12-31 07:39] LABS: ALT 31 U/L (9-52); AST 50 U/L (14-36); Albumin 3.6 g/dL (3.5-5.0); Alkaline Phosphatase 98 U/L (38-126); Anion Gap 13 mmol/L; Blood Urea Nitrogen 6 mg/dL (7-17); Calcium 8.3 mg/dL (8.4-10.2); Carbon Dioxide 21 mmol/L (22-30); Chloride 106 mmol/L (98-107); Glucose 146 mg/dL (74-99); Magnesium 1.9 mg/dL (1.6-2.3); Phosphorus 3.9 mg/dL (2.5-4.5); Potassium 3.9 mmol/L (3.5-5.1); Sodium 140 mmol/L (137-145); Total Bilirubin 0.1 mg/dL (0.2-1.3); Total Protein 6.3 g/dL (6.3-8.2)
[2017-12-31 07:43] LABS: Basophils % (A) 0 %; Eosinophils # (A) 0.2 k/uL (0-0.7); Eosinophils % (A) 1 %; HCT 32.4 % (34.0-46.0); HGB 10.5 gm/dL (11.4-16.0); Lymphocytes # (A) 1.4 k/uL (1.0-4.8); Lymphocytes % (A) 12 %; MCH 30.3 pg (25.0-35.0); MCHC 32.5 g/dL (31.0-37.0); MCV 93.3 fL (80.0-100.0); Mean Platelet Volume 6.7; Monocytes # (A) 0.4 k/uL (0-1.0); Monocytes % (A) 3 %; Neutrophils # (A) 9.6 k/uL (1.3-7.7); Neutrophils % (A) 83 %; Platelet Count 241 k/uL (150-450); RBC 3.47 m/uL (3.80-5.40); RDW 14.6 % (11.5-15.5); WBC 11.6 k/uL (3.8-10.6)
[2017-12-31] MEDS: CHLORHEXIDINE GLUCONATE 15 ML CUP MUCOUS MEM SCH (09:00)
[2017-12-31] MEDS: PROPOFOL 1,000 MG in EMPTY BAG 1 BAG IV SCH (09:20)
--- NOTE | 2017-12-31 11:11 | XR ---
EXAMINATION TYPE: XR chest 1V portable DATE OF EXAM: 12/31/2017 CLINICAL HISTORY: NG tube repositioning TECHNIQUE: Single AP portable semiupright view of the chest is obtained. COMPARISON: Chest x-ray from earlier today FINDINGS: There is interval advancement of nasogastric tube now projecting below diaphragm. Endotrac heal tube is stable in position. Cardiac silhouette size is stable and within normal limits. There is persistent left basilar opacity. There is developing right basilar opacity silhouetting portion of r ight minor fissure. Upper lungs are clear without pneumothorax. Osseous structures are intact. IMPRESSION: 1. Satisfactory positioning of nasogastric tube after repositioning. 2. Persistent small left pleural effusion with associated left basilar atelectasis and/or infiltrate. Developing right basilar atelectasis and/or infiltrate is noted in the interval.
--- NOTE | 2017-12-31 11:14 | P.PN ---
Subjective Progress Note Date: 12/31/17 Principal diagnosis: Acute psychosis with extreme agitation requiring intubation and mechanical ventilation possible tramadol withdrawal A 42-year-old female patient with known history of severe depression/bipolar disorder along with history of chronic muscle spasm restless leg syndrome has been taking Ultram 100 mg 3 times a day for many years. The patient has been hospitalized in the past for suicidal attempts and she has not seen a psychiatrist for the past 3 years. There is a vague remote history of seizure disorder in the past. The patient was brought in to the burst department this morning because of altered mentation. She was not able to give any history and the history was obtained from the family including the father and the mother with home the patient lives. The family claims that the patient was not able to get her tramadol refills and she is started to withdrawal from being off opiates and tramadol 9 that she is very much dependent on this medication. She started getting altered and confused and combative and agitated. In the burst department the patient was very much agitated and she was unable to answer any questions. She was moving all 4 extremities without any limitation. She was placed and 2 points restraint and she was given a total of 9 mg of morphine, 100 g of fentanyl and 20 mg of Geodon. A lumbar puncture was also done in the emergency department did came back negative for meningitis. The patient got transferred to the intensive care unit and she was extremely agitated to the point where she was combative and was very hard to control her agitation. I give this patient additional 5 mg of Valium, a total of 10 mg of Haldol and 5 mg of morphine. Unfortunately, she continued to do the same behavior. She would yell and scream and the very agitated to the point where she was pulling out her IV lines and now this medication were given to him was effective. I discussed the case with the neurologist. Discussed the case with the family. I control her agitation with a total of 150 mg of Diprivan. This was given a bolus and following that the patient was given Nimbex and she was intubated and placed on a mechanical ventilator. Currently Diprivan is running at 50 mics per KG per minute. She is oxygenating well and she is well ventilating and success with the mechanical ventilator. She is an assist-control of 20, tidal volume 500, FiO2 of 100% and a PEEP of 5. She did have some hypotension postintubation with a blood pressure of mid 80s and currently is receiving IV fluids. Chest x-ray and blood gases are still pending for now. CAT scan of the brain that was done the burst department showed no acute abnormalities. No seizure activity was noted. No head trauma. No neck stiffness. She did have a 1 spike of temperature. Her lactic acid was at 2.1. Be urine was 16 creatinine is 1.1 glucose within normal limits and chest x-ray at time of admission is within normal limits. Patient was reevaluated today on 12/29/2017, sedated, on propofol drip, remains on mechanical ventilation, in no distress. Ventilator settings are tidal volume of 450 assist-control rate of 12 FiO2 is 35% and PEEP of 5. ABG showed a pO2 of 29 pCO2 of 34 pH of 7.36. He is relatively normal, basic metabolic profile is normal except for low potassium of 3.3 being corrected as per protocol. Chest x-ray showed mostly bibasilar atelectasis. No clear-cut evidence of infiltrate. Patient was reevaluated today on 12/30/2017, awakened from sedation, however as soon as she woke up, became extremely agitated, would not open eyes, but Extreme agitation was noted, and patient was trying to talk to us and a sign language. Mother could not even understand, except she was reading some lateral his. Extreme agitation was noted, patient was also biting on the endotracheal tube, and was not ventilating properly, hence we decided to place back on propofol. Lamictal was placed on hold because of elevated level, patient was restarted on tramadol, will discontinue morphine, ABG showed a pO2 of 135 pCO2 of 41 pH of 7.35. Chest x-ray showed no evidence of active disease CBC is relatively normal. Nutritional support will be initiated today. Remains on GI and DVT prophylaxis. Family is at bedside, I discussed her condition with family, and at this point she is not quite ready to be weaned and extubated. Patient was reevaluated today on 12/31/2017, she was extremely agitated last night, in spite of relatively high dose of propofol, tramadol, and morphine, hence we ended up placing the patient on Nimbex. This morning, the patient was reevaluated again, Nimbex was discontinued, propofol was cut down slowly, and if the patient remains calm, I plan to discontinue propofol, and possibly extubate the patient. Chest x-ray showed no evidence of active disease, labs were all reviewed the seem to be relatively unremarkable. Family is at bedside , and discussed her condition with the family at bedside. ABG was also reviewed , Objective - Vital Signs Vital signs: Vital Signs Temp 98.1 F 12/31/17 00:00 Pulse 92 12/31/17 02:00 Resp 12 12/31/17 02:00 BP 104/67 12/31/17 02:00 Pulse Ox 100 12/31/17 02:00 Intake & Output 12/30/17 12/31/17 12/31/17 18:59 06:59 18:59 Intake Total 2252.325 1608.590 Output Total 2215 1465 Balance 37.325 143.590 Weight 81 kg Intake: IV 1500 1000 Sodium Chloride 0.9% 1, 1500 1000 000 ml @ 125 mls/hr IV . Q8H [facility] Rx#:[id number] Intake, IV Titration 402.325 188.590 Amount Cisatracurium 200 mg In 17.415 Sodium Chloride 0.9% 180 ml @ 1 MCG/KG/MIN 4.86 mls/hr IV .Q24H [facility]IA Rx#: [id number] Propofol 1,000 mg In 402.325 171.175 Empty Bag 1 bag @ Titrate IV .Q0M RUBIA Rx#: [id number] Tube Feeding 320 360 Other 30 60 Output: Urine 2215 1465 Other: Voiding Method Indwelling Catheter Indwelling Catheter - Exam Physical Exam: Revealed a 42-year-old female on mechanical ventilation, in no distress. Head: Atraumatic, normocephalic. HEENT:[Neck is supple.] [No neck masses.] [No thyromegaly.] [No JVD.]. Endotracheal tube is intact. PERRLA, EOMI. Chest: [Clear throughout, no crackles, no rhonchi, no wheezes.] Cardiac Exam: [Normal S1 and S2, no S3 gallop, no murmur.] Abdomen: [Soft, nontender, no megaly, no rebound, no guarding, normal bowel sounds.] Extremities: [No clubbing, no edema, no cyanosis.] Neurological Exam: On a lower dose of propofol, patient was noted to be calm, following instructions, in no distress, and definitely less agitated this is on a lower dose of propofol and off Nimbex. Psychiatric: Cannot be assessed at this point, Lymphatics: No lymphadenopathy. - Labs CBC & Chem 7: 12/30/17 05:24 12/30/17 12:40 Labs: Abnormal Lab Results - Last 24 Hours (Table) 12/30/17 Range/Units 17:43 POC Glucose (mg/dL) 102 H (75-99) mg/dL Microbiology - Last 24 Hours (Table) 12/28/17 10:00 CSF Gram Stain - Preliminary Cerebral Spinal Fluid CSF Culture - Preliminary Assessment and Plan Assessment: 1 acute psychosis, with extreme agitation failed to respond to routine therapy with a combination of Haldol, opiates and benzodiazepines. 2 acute opiate withdrawal, extreme agitation requiring intubation, sedation will be interrupted today, and I will likely proceed with weaning and extubation if the patient does well and remains calm. 3 bipolar disorder 4 depression 5 previous history of suicidal attempts 6 chronic Ultram dependence 7 restless leg syndrome 8 chronic anxiety Plan: Continue all present supportive care measures, patient will be off Nimbex this morning, will cut down the propofol gradually, we'll assess mental status while off propofol, we'll assess weaning parameters, and if she continues to do well, I would likely proceed with extubation. Prognosis remains guarded, she will need to be monitored in the ICU even if extubated. We'll continue to follow, discussed her condition with family at bedside, critical care time is 35 minutes. Time with Patient: Greater than 30
[2017-12-31] MEDS: PANTOPRAZOLE 40 MG/10 ML VIAL IVP SCH (11:48)
[2017-12-31 12:13] LABS: Glucose,Whole Blood 87 mg/dL (75-99)
[2017-12-31 12:56] LABS: ABG Base Excess -0.1 mmol/L; ABG HCO3 24 mmol/L (21-25); ABG Oxygen Saturation 97.4 % (94-97); ABG PCO2 35 mmHg (35-45); ABG PH 7.44 (7.35-7.45); ABG PO2 84 mmHg (83-108); ABG TCO2 25 mmol/L (19-24)
[2017-12-31 17:29] LABS: Glucose,Whole Blood 92 mg/dL (75-99)
--- NOTE | 2017-12-31 17:49 | P.PN ---
Subjective Progress Note Date: 12/31/17 This patient is a 42-year-old right-handed white female who was initially admitted to hospital with altered mental status and acute psychosis. Patient had extreme agitation and was felt to be withdrawal syndrome from high-dose of altered. She became very agitated and required mechanical ventilation and was intubated and is now currently seen in the intensive care unit. The patient remains on the ventilator and is currently sedated. Apparently she was given a sedation holiday earlier today but she became again very agitated and was biting on the endotracheal tube. She was not ventilating properly and she was placed back on the ventilator with propofol. Was noted yesterday that her Lamictal level was very elevated at 25.2. Her Lamictal is on hold currently. The patient was restarted on tramadol and is also receiving morphine. She apparently still requires sedation and was not able to be weaned earlier this morning by pulmonary medicine. They will consider retrial tomorrow. We did review her spinal fluid results today with the patient's parents who are at the bedside. There were updated on all of her test results including EEG that was done on admission and was reviewed and reveals only slight slowing. EEG background was actually quite good for her condition. She also had undergone a lumbar puncture in the emergency room on admission and CSF Gram stain and cultures are negative thus far. The patient has an extensive psychiatric history. Psychiatry has been consulted. The patient was very agitated last night despite of having received high doses of propofol, tramadol and morphine. She was placed on Nimbex which was discontinued this morning. Fortunately she was able to be extubated this morning and is now sitting up in chair next to her bedside. She remains in the intensive care unit. She is very awake and alert and is able to answer all questions appropriately. She poorly recognizes her family members were at bedside. Her mother also states she is back to baseline level of function. Patient is not showing any signs of tremors or spasticity today on examination. She is very much appropriate and shows no signs of acute psychosis at this time. The patient will be monitored in the ICU overnight. We will await further recommendations from multiple specialists that her following her. Her overall prognosis at this time remains guarded. Objective - Vital Signs Vital signs: Vital Signs Temp 98.8 F 12/31/17 12:00 Pulse 89 12/31/17 15:00 Resp 26 H 12/31/17 15:00 BP 135/73 12/31/17 15:00 Pulse Ox 98 12/31/17 15:00 Intake & Output 12/30/17 12/31/17 12/31/17 18:59 06:59 18:59 Intake Total 2252.325 4551.003 7174.072 Output Total 2215 1465 2475 Balance 37.325 143.590 -1367.928 Weight 81 kg 74.7 kg Intake: IV 1500 1000 1000 Sodium Chloride 0.9% 1, 1500 1000 1000 000 ml @ 125 mls/hr IV . Q8H R[facility] Rx#:[id number] Intake, IV Titration 402.325 188.590 107.072 Amount Cisatracurium 200 mg In 17.415 Sodium Chloride 0.9% 180 ml @ 1 MCG/KG/MIN 4.86 mls/hr IV .Q24H RUBIA Rx#: [id number] Propofol 1,000 mg In 402.325 171.175 107.072 Empty Bag 1 bag @ Titrate IV .Q0M RUBIA Rx#: [id number] Tube Feeding 320 360 Other 30 60 Output: Urine 2215 1465 2475 Other: Voiding Method Indwelling Catheter Indwelling Catheter Indwelling Catheter - Exam Physical examination: PHYSICAL EXAMINATION: Patient is sitting up in chair next to her bed in the ICU. She was extubated earlier this morning. She is alert and oriented 3. VITAL SIGNS: Blood pressure is [107/68]. Heart rate is [81]. Respiration is [25] . Temperature is [97.7]. HEENT: Head is atraumatic, neck is supple, there were no carotid bruits. CHEST: Lungs are clear to auscultation and percussion. CARDIAC: S1, S2 normal rate and rhythm. There is no murmur. ABDOMEN: Soft and nontender. Bowel sounds are present. EXTREMITIES: There is no pedal edema. Peripheral pulses are present. Neurological examination: Patient is examined at bedside. She is awake alert and oriented 3. Her speech is fluent with no evidence of any aphasia or dysarthria. Her memory and intellectual functions are appropriate for age. Cranial nerves II through XII are grossly intact. There was no pronator drift. Muscle tone is normal. Muscle strength testing is revealing 4/5 strength throughout. Deep tendon reflexes are 2+ and symmetric. Plantar responses flexor bilaterally. - Labs CBC & Chem 7: 12/31/17 04:39 12/31/17 04:39 Labs: Abnormal Lab Results - Last 24 Hours (Table) 12/30/17 12/31/17 12/31/17 Range/Units 17:43 04:39 04:39 WBC 11.6 H (3.8-10.6) k/uL RBC 3.47 L (3.80-5.40) m/uL Hgb 10.5 L (11.4-16.0) gm/dL Hct 32.4 L (34.0-46.0) % Neutrophils # 9.6 H (1.3-7.7) k/uL ABG Total CO2 (19-24) mmol/L ABG O2 Saturation (94-97) % Carbon Dioxide 21 L (22-30) mmol/L BUN 6 L (7-17) mg/dL Glucose 146 H (74-99) mg/dL POC Glucose (mg/dL) 102 H (75-99) mg/dL Calcium 8.3 L (8.4-10.2) mg/dL Total Bilirubin 0.1 L (0.2-1.3) mg/dL AST 50 H (14-36) U/L 12/31/17 Range/Units 07:10 WBC (3.8-10.6) k/uL RBC (3.80-5.40) m/uL Hgb (11.4-16.0) gm/dL Hct (34.0-46.0) % Neutrophils # (1.3-7.7) k/uL ABG Total CO2 25 H (19-24) mmol/L ABG O2 Saturation 97.4 H (94-97) % Carbon Dioxide (22-30) mmol/L BUN (7-17) mg/dL Glucose (74-99) mg/dL POC Glucose (mg/dL) (75-99) mg/dL Calcium (8.4-10.2) mg/dL Total Bilirubin (0.2-1.3) mg/dL AST (14-36) U/L Microbiology - Last 24 Hours (Table) 12/28/17 10:00 CSF Gram Stain - Preliminary Cerebral Spinal Fluid CSF Culture - Preliminary Assessment and Plan (1) Acute metabolic encephalopathy Current Visit: Yes Status: Acute Code(s): G93.41 - METABOLIC ENCEPHALOPATHY SNOMED Code(s): 62219091 (2) History of psychiatric disorder Current Visit: Yes Status: Acute Code(s): Z86.59 - PERSONAL HISTORY OF OTHER MENTAL AND BEHAVIORAL DISORDERS SNOMED Code(s): 607564730 (3) Leukocytosis Current Visit: Yes Status: Acute Code(s): D72.829 - ELEVATED WHITE BLOOD CELL COUNT, UNSPECIFIED SNOMED Code(s): 063894553 (4) Seizures, generalized convulsive Current Visit: No Status: Acute Code(s): R56.9 - UNSPECIFIED CONVULSIONS SNOMED Code(s): 528966416 (5) Depression Current Visit: No Status: Acute Code(s): F32.9 - MAJOR DEPRESSIVE DISORDER, SINGLE EPISODE, UNSPECIFIED SNOMED Code(s): 88900868 Plan: This patient is a 42-year-old female who was initially admitted to the intensive care unit for acute psychosis and extreme agitation. She required intubation due to uncontrolled agitation. She underwent a computed tomography scan of the brain as well as a lumbar puncture both of which came back negative. She was intubated and transferred to the intensive care unit where she has been closely monitored. Patient has history of possible acute opiate withdrawal as well as tramadol withdrawal. She has history of underlying depression and bipolar disorder and is to be evaluated by a second kind 3. Patient was extubated this morning and is now doing much better and is sitting in the chair next to her bed in the ICU. She is very much appropriate and able to answer all questions appropriately. She is to remain in the ICU overnight for close monitoring. We will await any further recommendations from psychiatry. Her overall prognosis at this time remains guarded.
[2017-12-31] MEDS: IBUPROFEN 400 MG TAB PO PRN (18:17)
[2017-12-31] MEDS: QUEtiapine 100 MG TAB PO SCH (18:27)
[2017-12-31 20:31] LABS: Glucose,Whole Blood 107 mg/dL (75-99)
--- NOTE | 2017-12-31 22:10 | P.PN ---
Subjective Principal diagnosis: Continued care with altered mental status. Essentially admitted for altered mental status level was elevated with elements of probable tramadol use. Patient is still intubated this morning but hopeful of weaning today. Objective - Vital Signs Vital signs: Vital Signs Temp 98.5 F 12/31/17 16:00 Pulse 80 12/31/17 19:00 Resp 22 12/31/17 19:00 BP 139/81 12/31/17 19:00 Pulse Ox 95 12/31/17 19:00 Intake & Output 12/31/17 12/31/17 01/01/18 06:59 18:59 06:59 Intake Total 5090.623 4034.072 125 Output Total 1465 2475 Balance 143.590 -992.928 125 Weight 74.7 kg Intake: IV 1000 1375 125 Sodium Chloride 0.9% 1, 1000 1375 125 000 ml @ 125 mls/hr IV . Q8H [facility] Rx#:[id number] Intake, IV Titration 188.590 107.072 Amount Cisatracurium 200 mg In 17.415 Sodium Chloride 0.9% 180 ml @ 1 MCG/KG/MIN 4.86 mls/hr IV .Q24H [facility] Rx#: [id number] Propofol 1,000 mg In 171.175 107.072 Empty Bag 1 bag @ Titrate IV .Q0M R[facility]IA Rx#: [id number] Tube Feeding 360 Other 60 Output: Urine 1465 2475 Other: Voiding Method Indwelling Catheter Toilet # Voids 1 - Constitutional General appearance: Present: average body habitus - EENT Eyes: Absent: abnormal pupil - Respiratory Respiratory: bilateral: CTA - Cardiovascular Rhythm: regular Abnormal Heart Sounds: Absent: S3 Gallop - Gastrointestinal General gastrointestinal: Present: soft. Absent: tenderness - Neurologic Neurologic: Present: CNII-XII intact - Labs CBC & Chem 7: 12/31/17 04:39 12/31/17 04:39 Labs: Abnormal Lab Results - Last 24 Hours (Table) 12/31/17 12/31/17 12/31/17 Range/Units 04:39 04:39 07:10 WBC 11.6 H (3.8-10.6) k/uL RBC 3.47 L (3.80-5.40) m/uL Hgb 10.5 L (11.4-16.0) gm/dL Hct 32.4 L (34.0-46.0) % Neutrophils # 9.6 H (1.3-7.7) k/uL ABG Total CO2 25 H (19-24) mmol/L ABG O2 Saturation 97.4 H (94-97) % Carbon Dioxide 21 L (22-30) mmol/L BUN 6 L (7-17) mg/dL Glucose 146 H (74-99) mg/dL POC Glucose (mg/dL) (75-99) mg/dL Calcium 8.3 L (8.4-10.2) mg/dL Total Bilirubin 0.1 L (0.2-1.3) mg/dL AST 50 H (14-36) U/L 12/31/17 Range/Units 20:28 WBC (3.8-10.6) k/uL RBC (3.80-5.40) m/uL Hgb (11.4-16.0) gm/dL Hct (34.0-46.0) % Neutrophils # (1.3-7.7) k/uL ABG Total CO2 (19-24) mmol/L ABG O2 Saturation (94-97) % Carbon Dioxide (22-30) mmol/L BUN (7-17) mg/dL Glucose (74-99) mg/dL POC Glucose (mg/dL) 107 H (75-99) mg/dL Calcium (8.4-10.2) mg/dL Total Bilirubin (0.2-1.3) mg/dL AST (14-36) U/L Microbiology - Last 24 Hours (Table) 12/28/17 10:00 CSF Gram Stain - Preliminary Cerebral Spinal Fluid CSF Culture - Preliminary Assessment and Plan (1) Acute metabolic encephalopathy Current Visit: Yes Status: Acute Code(s): G93.41 - METABOLIC ENCEPHALOPATHY SNOMED Code(s): 98851634 (2) Altered mental status Current Visit: Yes Status: Acute Code(s): R41.82 - ALTERED MENTAL STATUS, UNSPECIFIED SNOMED Code(s): 697758752 (3) Withdrawal from opioids Current Visit: Yes Status: Acute Code(s): F11.23 - OPIOID DEPENDENCE WITH WITHDRAWAL SNOMED Code(s): 04418175 (4) Depression Current Visit: No Status: Acute Code(s): F32.9 - MAJOR DEPRESSIVE DISORDER, SINGLE EPISODE, UNSPECIFIED SNOMED Code(s): 44985215 (5) Seizures, generalized convulsive Current Visit: No Status: Acute Code(s): R56.9 - UNSPECIFIED CONVULSIONS SNOMED Code(s): 859394074 Plan: We will continue to follow from a medical perspective. Hopeful of weaning off of ventilator. Ask psychiatry to see the patient, Once the patient is more lucid. Appreciate fundraising sale representative and neurology input. Time with Patient: Less than 30
[2018-01-01] MEDS: IBUPROFEN 400 MG TAB PO PRN ×4 (00:11→18:03)
[2018-01-01] MEDS: traMADol 50 MG TAB PO SCH ×5 (00:12→23:44)
[2018-01-01] MEDS: HEPARIN SODIUM,PORCINE 5,000 UNIT/ML 1 ML VIAL SQ SCH ×4 (00:13→23:46)
[2018-01-01] MEDS: SODIUM CHLORIDE 0.9% 1,000 ML IV SCH ×2 (00:15→13:10)
[2018-01-01 05:29] LABS: Basophils % (A) 0 %; Eosinophils # (A) 0.2 k/uL (0-0.7); Eosinophils % (A) 2 %; HCT 30.9 % (34.0-46.0); HGB 10.1 gm/dL (11.4-16.0); Lymphocytes # (A) 2.1 k/uL (1.0-4.8); Lymphocytes % (A) 24 %; MCH 30.1 pg (25.0-35.0); MCHC 32.6 g/dL (31.0-37.0); MCV 92.5 fL (80.0-100.0); Mean Platelet Volume 6.8; Monocytes # (A) 0.3 k/uL (0-1.0); Monocytes % (A) 4 %; Neutrophils % (A) 68 %; Platelet Count 252 k/uL (150-450); RBC 3.34 m/uL (3.80-5.40); RDW 14.4 % (11.5-15.5); WBC 8.8 k/uL (3.8-10.6)
[2018-01-01 05:51] LABS: ALT 33 U/L (9-52); AST 59 U/L (14-36); Albumin 3.6 g/dL (3.5-5.0); Alkaline Phosphatase 95 U/L (38-126); Anion Gap 12 mmol/L; Blood Urea Nitrogen 5 mg/dL (7-17); Calcium 8.7 mg/dL (8.4-10.2); Carbon Dioxide 21 mmol/L (22-30); Chloride 108 mmol/L (98-107); Glucose 88 mg/dL (74-99); Magnesium 1.9 mg/dL (1.6-2.3); Phosphorus 2.9 mg/dL (2.5-4.5); Potassium 3.4 mmol/L (3.5-5.1); Sodium 141 mmol/L (137-145); Total Bilirubin 0.4 mg/dL (0.2-1.3); Total Protein 6.3 g/dL (6.3-8.2)
[2018-01-01 07:31] LABS: Glucose,Whole Blood 99 mg/dL (75-99)
[2018-01-01] MEDS: INSULIN ASPART 100 UNIT/ML 1 ML 10 ML VIAL SQ SCH (08:29)
[2018-01-01] MEDS: PANTOPRAZOLE 40 MG/10 ML VIAL IVP SCH (08:30)
[2018-01-01] MEDS: POTASSIUM CHLORIDE ER 20 MEQ TAB.ER PO SCH ×2 (08:31→12:47)
[2018-01-01] MEDS ORDERED: MENTHOL-CAMPHOR LOTION 222 APPLIC/222 ML BOTTLE TOPICAL PRN (11:16)
--- NOTE | 2018-01-01 13:00 | P.PN ---
Subjective Progress Note Date: 01/01/18 Principal diagnosis: Acute psychosis with extreme agitation requiring intubation and mechanical ventilation possible tramadol withdrawal A 42-year-old female patient with known history of severe depression/bipolar disorder along with history of chronic muscle spasm restless leg syndrome has been taking Ultram 100 mg 3 times a day for many years. The patient has been hospitalized in the past for suicidal attempts and she has not seen a psychiatrist for the past 3 years. There is a vague remote history of seizure disorder in the past. The patient was brought in to the burst department this morning because of altered mentation. She was not able to give any history and the history was obtained from the family including the father and the mother with home the patient lives. The family claims that the patient was not able to get her tramadol refills and she is started to withdrawal from being off opiates and tramadol 9 that she is very much dependent on this medication. She started getting altered and confused and combative and agitated. In the burst department the patient was very much agitated and she was unable to answer any questions. She was moving all 4 extremities without any limitation. She was placed and 2 points restraint and she was given a total of 9 mg of morphine, 100 g of fentanyl and 20 mg of Geodon. A lumbar puncture was also done in the emergency department did came back negative for meningitis. The patient got transferred to the intensive care unit and she was extremely agitated to the point where she was combative and was very hard to control her agitation. I give this patient additional 5 mg of Valium, a total of 10 mg of Haldol and 5 mg of morphine. Unfortunately, she continued to do the same behavior. She would yell and scream and the very agitated to the point where she was pulling out her IV lines and now this medication were given to him was effective. I discussed the case with the neurologist. Discussed the case with the family. I control her agitation with a total of 150 mg of Diprivan. This was given a bolus and following that the patient was given Nimbex and she was intubated and placed on a mechanical ventilator. Currently Diprivan is running at 50 mics per KG per minute. She is oxygenating well and she is well ventilating and success with the mechanical ventilator. She is an assist-control of 20, tidal volume 500, FiO2 of 100% and a PEEP of 5. She did have some hypotension postintubation with a blood pressure of mid 80s and currently is receiving IV fluids. Chest x-ray and blood gases are still pending for now. CAT scan of the brain that was done the burst department showed no acute abnormalities. No seizure activity was noted. No head trauma. No neck stiffness. She did have a 1 spike of temperature. Her lactic acid was at 2.1. Be urine was 16 creatinine is 1.1 glucose within normal limits and chest x-ray at time of admission is within normal limits. Patient was reevaluated today on 12/29/2017, sedated, on propofol drip, remains on mechanical ventilation, in no distress. Ventilator settings are tidal volume of 450 assist-control rate of 12 FiO2 is 35% and PEEP of 5. ABG showed a pO2 of 29 pCO2 of 34 pH of 7.36. He is relatively normal, basic metabolic profile is normal except for low potassium of 3.3 being corrected as per protocol. Chest x-ray showed mostly bibasilar atelectasis. No clear-cut evidence of infiltrate. Patient was reevaluated today on 12/30/2017, awakened from sedation, however as soon as she woke up, became extremely agitated, would not open eyes, but Extreme agitation was noted, and patient was trying to talk to us and a sign language. Mother could not even understand, except she was reading some lateral his. Extreme agitation was noted, patient was also biting on the endotracheal tube, and was not ventilating properly, hence we decided to place back on propofol. Lamictal was placed on hold because of elevated level, patient was restarted on tramadol, will discontinue morphine, ABG showed a pO2 of 135 pCO2 of 41 pH of 7.35. Chest x-ray showed no evidence of active disease CBC is relatively normal. Nutritional support will be initiated today. Remains on GI and DVT prophylaxis. Family is at bedside, I discussed her condition with family, and at this point she is not quite ready to be weaned and extubated. Patient was reevaluated today on 12/31/2017, she was extremely agitated last night, in spite of relatively high dose of propofol, tramadol, and morphine, hence we ended up placing the patient on Nimbex. This morning, the patient was reevaluated again, Nimbex was discontinued, propofol was cut down slowly, and if the patient remains calm, I plan to discontinue propofol, and possibly extubate the patient. Chest x-ray showed no evidence of active disease, labs were all reviewed the seem to be relatively unremarkable. Family is at bedside , and discussed her condition with the family at bedside. ABG was also reviewed , Patient was reevaluated today on 01/01/2018, she was extubated yesterday, tolerated the extubation well, her mentation seems to be intact, patient is very pleasant, in no form of distress. Back on her usual meds which she took at home, and I plan today to transfer the patient out of the ICU to a regular medical floor. We'll arrange for a sitter to be with the patient, will also arrange for psychiatric follow-up. All labs were reviewed including CBC which was normal, hemoglobin is 3.4. Renal profile is normal. Objective - Vital Signs Vital signs: Vital Signs Temp 98.4 F 01/01/18 08:00 Pulse 82 01/01/18 10:00 Resp 12 01/01/18 10:00 BP 118/78 01/01/18 10:00 Pulse Ox 98 01/01/18 10:00 Intake & Output 12/31/17 01/01/18 01/01/18 18:59 06:59 18:59 Intake Total 0970.802 2375 860 Output Total 2475 Balance -498.422 8273 860 Weight 74.7 kg 72.8 kg Intake: IV 1375 1500 500 Sodium Chloride 0.9% 1, 1375 1500 500 000 ml @ 125 mls/hr IV . Q8H [facility] Rx#:[id number] Intake, IV Titration 107.072 Amount Propofol 1,000 mg In 107.072 Empty Bag 1 bag @ Titrate IV .Q0M [facility] Rx#: [id number] Oral 360 Output: Urine 2475 Other: Voiding Method Toilet Toilet # Voids 1 0 1 # Bowel Movements 1 - Exam Physical Exam: Revealed a 42-year-old female on room air, in no distress. Head: Atraumatic, normocephalic. HEENT:[Neck is supple.] [No neck masses.] [No thyromegaly.] [No JVD.]. PERRLA, EOMI. Chest: [Clear throughout, no crackles, no rhonchi, no wheezes.] Cardiac Exam: [Normal S1 and S2, no S3 gallop, no murmur.] Abdomen: [Soft, nontender, no megaly, no rebound, no guarding, normal bowel sounds.] Extremities: [No clubbing, no edema, no cyanosis.] Neurological Exam: Alert and oriented 3, cranial nerves are intact, no gross focal neurologic deficit. Psychiatric: Normal mood, affect, and mental status examination. Lymphatics: No lymphadenopathy. - Labs CBC & Chem 7: 01/01/18 04:45 01/01/18 04:45 Labs: Abnormal Lab Results - Last 24 Hours (Table) 12/31/17 12/31/17 12/31/17 Range/Units 04:39 07:10 20:28 RBC (3.80-5.40) m/uL Hgb (11.4-16.0) gm/dL Hct (34.0-46.0) % ABG Total CO2 25 H (19-24) mmol/L ABG O2 Saturation 97.4 H (94-97) % Potassium (3.5-5.1) mmol/L Chloride (98-107) mmol/L Carbon Dioxide 21 L (22-30) mmol/L BUN 6 L (7-17) mg/dL Glucose 146 H (74-99) mg/dL POC Glucose (mg/dL) 107 H (75-99) mg/dL Calcium 8.3 L (8.4-10.2) mg/dL Total Bilirubin 0.1 L (0.2-1.3) mg/dL AST 50 H (14-36) U/L 01/01/18 01/01/18 Range/Units 04:45 04:45 RBC 3.34 L (3.80-5.40) m/uL Hgb 10.1 L (11.4-16.0) gm/dL Hct 30.9 L (34.0-46.0) % ABG Total CO2 (19-24) mmol/L ABG O2 Saturation (94-97) % Potassium 3.4 L (3.5-5.1) mmol/L Chloride 108 H (98-107) mmol/L Carbon Dioxide 21 L (22-30) mmol/L BUN 5 L (7-17) mg/dL Glucose (74-99) mg/dL POC Glucose (mg/dL) (75-99) mg/dL Calcium (8.4-10.2) mg/dL Total Bilirubin (0.2-1.3) mg/dL AST 59 H (14-36) U/L Microbiology - Last 24 Hours (Table) 12/28/17 10:00 CSF Gram Stain - Final Cerebral Spinal Fluid CSF Culture - Final Assessment and Plan Assessment: 1 acute psychosis, with extreme agitation failed to respond to routine therapy with a combination of Haldol, opiates and benzodiazepines. Possible tramadol withdrawal. 2 acute opiate withdrawal, extreme agitation requiring intubation, extubated on 12/31/2017, and she tolerated the extubation well. 3 bipolar disorder 4 depression 5 previous history of suicidal attempts 6 chronic Ultram dependence 7 restless leg syndrome 8 chronic anxiety Plan: Continue all present supportive care measures, will arrange for transfer the patient to a regular medical floor, will have a sitter at bedside, and psychiatric evaluation again. Discharge planning in the next 24 hours. Time with Patient: Less than 30
[2018-01-01 13:20] VITALS: BMI 26.6
--- NOTE | 2018-01-01 15:24 | P.PN ---
Subjective Principal diagnosis: Continued care with altered mental status. This is a 42-year-old white female essentially atered mental status. Multiple consultants including neurology and psychiatry with intensivists are now consult did. She is now extubated and much more lucid. She states the combination of Seroquel and tr have supposed been causing her problems. I did remind her that for a UTI, she asked for [place] last week somewhat inappropriately. No voiding difficulties. The patient states that she is much more lucid and seems to be tolerating diet. Objective - Vital Signs Vital signs: Vital Signs Temp 98.4 F 01/01/18 08:00 Pulse 82 01/01/18 10:00 Resp 12 01/01/18 10:00 BP 118/78 01/01/18 10:00 Pulse Ox 98 01/01/18 10:00 Intake & Output 12/31/17 01/01/18 01/01/18 18:59 06:59 18:59 Intake Total 5416.312 5529 860 Output Total 2475 Balance -030.744 7564 860 Weight 74.7 kg 72.8 kg 72.8 kg Intake: IV 1375 1500 500 Sodium Chloride 0.9% 1, 1375 1500 500 000 ml @ 125 mls/hr IV . Q8H [facility] Rx#:[id number] Intake, IV Titration 107.072 Amount Propofol 1,000 mg In 107.072 Empty Bag 1 bag @ Titrate IV .Q0M [facility] Rx#: [id number] Oral 360 Output: Urine 2475 Other: Voiding Method Toilet Toilet # Voids 1 0 1 # Bowel Movements 1 - Constitutional General appearance: Present: average body habitus - EENT Eyes: Absent: abnormal pupil Ears: bilateral: normal - Neck Neck: Present: lymphadenopathy - Respiratory Respiratory: bilateral: CTA - Cardiovascular Rhythm: regular Abnormal Heart Sounds: Absent: systolic murmur - Gastrointestinal General gastrointestinal: Present: soft. Absent: tenderness - Neurologic Neurologic: Present: CNII-XII intact - Psychiatric Psychiatric: Present: A&O x's 3 - Labs CBC & Chem 7: 01/01/18 04:45 01/01/18 04:45 Labs: Abnormal Lab Results - Last 24 Hours (Table) 12/31/17 01/01/18 01/01/18 Range/Units 20:28 04:45 04:45 RBC 3.34 L (3.80-5.40) m/uL Hgb 10.1 L (11.4-16.0) gm/dL Hct 30.9 L (34.0-46.0) % Potassium 3.4 L (3.5-5.1) mmol/L Chloride 108 H (98-107) mmol/L Carbon Dioxide 21 L (22-30) mmol/L BUN 5 L (7-17) mg/dL POC Glucose (mg/dL) 107 H (75-99) mg/dL AST 59 H (14-36) U/L Microbiology - Last 24 Hours (Table) 12/28/17 10:00 CSF Gram Stain - Final Cerebral Spinal Fluid CSF Culture - Final Assessment and Plan (1) Acute metabolic encephalopathy Current Visit: Yes Status: Acute Code(s): G93.41 - METABOLIC ENCEPHALOPATHY SNOMED Code(s): 32750695 (2) Altered mental status Current Visit: Yes Status: Acute Code(s): R41.82 - ALTERED MENTAL STATUS, UNSPECIFIED SNOMED Code(s): 934829666 (3) Withdrawal from opioids Current Visit: Yes Status: Acute Code(s): F11.23 - OPIOID DEPENDENCE WITH WITHDRAWAL SNOMED Code(s): 84451100 (4) Depression Current Visit: No Status: Acute Code(s): F32.9 - MAJOR DEPRESSIVE DISORDER, SINGLE EPISODE, UNSPECIFIED SNOMED Code(s): 96668311 (5) Seizures, generalized convulsive Current Visit: No Status: Acute Code(s): R56.9 - UNSPECIFIED CONVULSIONS SNOMED Code(s): 396896890 Plan: The patient is a 42-year-old white female who was essentially been for altered mental status Found to have significant problems with Lamictal levels tramadol use. The patient states that she denies taking any of her parents medication. But I have told her that tramadol in combination with her other medications is going to cause issues in the future given her complete altered mental status requiring intubation and mechanical ventilation. Continue current regimen of treatment otherwise. Probable transfer to the general medical floor. Time with Patient: Greater than 30
[2018-01-01] MEDS: QUEtiapine 100 MG TAB PO SCH (20:00)
--- NOTE | 2018-01-01 21:30 | P.PN ---
Subjective Progress Note Date: 01/01/18 This patient is a 42-year-old right-handed white female who was initially admitted to hospital with altered mental status and acute psychosis. Patient had extreme agitation and was felt to be withdrawal syndrome from high-dose of altered. She became very agitated and required mechanical ventilation and was intubated and is now currently seen in the intensive care unit. The patient remains on the ventilator and is currently sedated. Apparently she was given a sedation holiday earlier today but she became again very agitated and was biting on the endotracheal tube. She was not ventilating properly and she was placed back on the ventilator with propofol. Was noted yesterday that her Lamictal level was very elevated at 25.2. Her Lamictal is on hold currently. The patient was restarted on tramadol and is also receiving morphine. She apparently still requires sedation and was not able to be weaned earlier this morning by pulmonary medicine. They will consider retrial tomorrow. We did review her spinal fluid results today with the patient's parents who are at the bedside. There were updated on all of her test results including EEG that was done on admission and was reviewed and reveals only slight slowing. EEG background was actually quite good for her condition. She also had undergone a lumbar puncture in the emergency room on admission and CSF Gram stain and cultures are negative thus far. The patient has an extensive psychiatric history. Psychiatry has been consulted. The patient was very agitated last night despite of having received high doses of propofol, tramadol and morphine. She was placed on Nimbex which was discontinued this morning. Fortunately she was able to be extubated this morning and is now sitting up in chair next to her bedside. She remains in the intensive care unit. She is very awake and alert and is able to answer all questions appropriately. She poorly recognizes her family members were at bedside. Her mother also states she is back to baseline level of function. Patient is not showing any signs of tremors or spasticity today on examination. She is very much appropriate and shows no signs of acute psychosis at this time. The patient had uneventful night yesterday. She continues to do excellent in terms of her mental status. We will await further evaluation from psychiatry in terms of their further recommendations. Psychiatry has been re-consulted. The patient will be monitored in the ICU overnight. We will await further recommendations from multiple specialists that her following her. Her overall prognosis at this time remains guarded. Objective - Vital Signs Vital signs: Vital Signs Temp 98.5 F 01/01/18 16:30 Pulse 72 01/01/18 16:30 Resp 15 01/01/18 16:30 BP 134/83 01/01/18 16:30 Pulse Ox 96 01/01/18 16:30 Intake & Output 01/01/18 01/01/18 01/02/18 06:59 18:59 06:59 Intake Total 1500 1160 Balance 1500 1160 Weight 72.8 kg 72.8 kg Intake: IV 1500 500 Sodium Chloride 0.9% 1, 1500 500 000 ml @ 125 mls/hr IV . Q8H [facility] Rx#:[id number] Oral 660 Other: Voiding Method Toilet # Voids 0 2 1 # Bowel Movements 1 - Exam Physical examination: PHYSICAL EXAMINATION: Patient is sitting up in chair next to her bed in the ICU. She was extubated earlier this morning. She is alert and oriented 3. VITAL SIGNS: Blood pressure is [134/83]. Heart rate is [72]. Respiration is [15] . Temperature is [98.5]. HEENT: Head is atraumatic, neck is supple, there were no carotid bruits. CHEST: Lungs are clear to auscultation and percussion. CARDIAC: S1, S2 normal rate and rhythm. There is no murmur. ABDOMEN: Soft and nontender. Bowel sounds are present. EXTREMITIES: There is no pedal edema. Peripheral pulses are present. Neurological examination: Patient is examined at bedside. She is awake alert and oriented 3. Her speech is fluent with no evidence of any aphasia or dysarthria. Her memory and intellectual functions are appropriate for age. Cranial nerves II through XII are grossly intact. There was no pronator drift. Muscle tone is normal. Muscle strength testing is revealing 4/5 strength throughout. Deep tendon reflexes are 2+ and symmetric. Plantar responses flexor bilaterally. - Labs CBC & Chem 7: 01/01/18 04:45 01/01/18 04:45 Labs: Abnormal Lab Results - Last 24 Hours (Table) 01/01/18 01/01/18 Range/Units 04:45 04:45 RBC 3.34 L (3.80-5.40) m/uL Hgb 10.1 L (11.4-16.0) gm/dL Hct 30.9 L (34.0-46.0) % Potassium 3.4 L (3.5-5.1) mmol/L Chloride 108 H (98-107) mmol/L Carbon Dioxide 21 L (22-30) mmol/L BUN 5 L (7-17) mg/dL AST 59 H (14-36) U/L Microbiology - Last 24 Hours (Table) 12/28/17 10:00 CSF Gram Stain - Final Cerebral Spinal Fluid CSF Culture - Final Assessment and Plan (1) Acute metabolic encephalopathy Current Visit: Yes Status: Acute Code(s): G93.41 - METABOLIC ENCEPHALOPATHY SNOMED Code(s): 70531579 (2) History of psychiatric disorder Current Visit: Yes Status: Acute Code(s): Z86.59 - PERSONAL HISTORY OF OTHER MENTAL AND BEHAVIORAL DISORDERS SNOMED Code(s): 697604097 (3) Leukocytosis Current Visit: Yes Status: Acute Code(s): D72.829 - ELEVATED WHITE BLOOD CELL COUNT, UNSPECIFIED SNOMED Code(s): 057735328 (4) Seizures, generalized convulsive Current Visit: No Status: Acute Code(s): R56.9 - UNSPECIFIED CONVULSIONS SNOMED Code(s): 226021556 (5) Depression Current Visit: No Status: Acute Code(s): F32.9 - MAJOR DEPRESSIVE DISORDER, SINGLE EPISODE, UNSPECIFIED SNOMED Code(s): 34327440 Plan: This patient is a pleasant 42-year-old female initially admitted to hospital with acute mental status changes and acute psychosis. It was felt that she likely had opioid overdose as well as overdose to tramadol. She was initially intubated and extubated yesterday and has continued to show good improvement in her overall mental status. She is examined today in the intensive care unit and is appropriate and able to answer all questions appropriately. She seems to be doing much better in terms of her mental status. She is awaiting reevaluation by psychiatry regarding her psychiatric medications. She does seem to be much more awake and alert and is able to appropriately answer all questions. She is awaiting transfer out of the ICU possibly tomorrow morning. We will continue to follow her progress closely. Her overall prognosis at this time remains guarded.
[2018-01-02] MEDS: traMADol 50 MG TAB PO SCH ×2 (05:06→11:46)
[2018-01-02] MEDS: HEPARIN SODIUM,PORCINE 5,000 UNIT/ML 1 ML VIAL SQ SCH (09:32)
[2018-01-02] MEDS: PANTOPRAZOLE 40 MG/10 ML VIAL IVP SCH (09:33)
[2018-01-02] MEDS: IBUPROFEN 400 MG TAB PO PRN (09:43)
--- NOTE | 2018-01-02 10:34 | P.PN ---
Subjective Progress Note Date: 01/02/18 Principal diagnosis: Acute psychosis with extreme agitation requiring intubation and mechanical ventilation possible tramadol withdrawal A 42-year-old female patient with known history of severe depression/bipolar disorder along with history of chronic muscle spasm restless leg syndrome has been taking Ultram 100 mg 3 times a day for many years. The patient has been hospitalized in the past for suicidal attempts and she has not seen a psychiatrist for the past 3 years. There is a vague remote history of seizure disorder in the past. The patient was brought in to the burst department this morning because of altered mentation. She was not able to give any history and the history was obtained from the family including the father and the mother with home the patient lives. The family claims that the patient was not able to get her tramadol refills and she is started to withdrawal from being off opiates and tramadol 9 that she is very much dependent on this medication. She started getting altered and confused and combative and agitated. In the burst department the patient was very much agitated and she was unable to answer any questions. She was moving all 4 extremities without any limitation. She was placed and 2 points restraint and she was given a total of 9 mg of morphine, 100 g of fentanyl and 20 mg of Geodon. A lumbar puncture was also done in the emergency department did came back negative for meningitis. The patient got transferred to the intensive care unit and she was extremely agitated to the point where she was combative and was very hard to control her agitation. I give this patient additional 5 mg of Valium, a total of 10 mg of Haldol and 5 mg of morphine. Unfortunately, she continued to do the same behavior. She would yell and scream and the very agitated to the point where she was pulling out her IV lines and now this medication were given to him was effective. I discussed the case with the neurologist. Discussed the case with the family. I control her agitation with a total of 150 mg of Diprivan. This was given a bolus and following that the patient was given Nimbex and she was intubated and placed on a mechanical ventilator. Currently Diprivan is running at 50 mics per KG per minute. She is oxygenating well and she is well ventilating and success with the mechanical ventilator. She is an assist-control of 20, tidal volume 500, FiO2 of 100% and a PEEP of 5. She did have some hypotension postintubation with a blood pressure of mid 80s and currently is receiving IV fluids. Chest x-ray and blood gases are still pending for now. CAT scan of the brain that was done the burst department showed no acute abnormalities. No seizure activity was noted. No head trauma. No neck stiffness. She did have a 1 spike of temperature. Her lactic acid was at 2.1. Be urine was 16 creatinine is 1.1 glucose within normal limits and chest x-ray at time of admission is within normal limits. Patient was reevaluated today on 12/29/2017, sedated, on propofol drip, remains on mechanical ventilation, in no distress. Ventilator settings are tidal volume of 450 assist-control rate of 12 FiO2 is 35% and PEEP of 5. ABG showed a pO2 of 29 pCO2 of 34 pH of 7.36. He is relatively normal, basic metabolic profile is normal except for low potassium of 3.3 being corrected as per protocol. Chest x-ray showed mostly bibasilar atelectasis. No clear-cut evidence of infiltrate. Patient was reevaluated today on 12/30/2017, awakened from sedation, however as soon as she woke up, became extremely agitated, would not open eyes, but Extreme agitation was noted, and patient was trying to talk to us and a sign language. Mother could not even understand, except she was reading some lateral his. Extreme agitation was noted, patient was also biting on the endotracheal tube, and was not ventilating properly, hence we decided to place back on propofol. Lamictal was placed on hold because of elevated level, patient was restarted on tramadol, will discontinue morphine, ABG showed a pO2 of 135 pCO2 of 41 pH of 7.35. Chest x-ray showed no evidence of active disease CBC is relatively normal. Nutritional support will be initiated today. Remains on GI and DVT prophylaxis. Family is at bedside, I discussed her condition with family, and at this point she is not quite ready to be weaned and extubated. Patient was reevaluated today on 12/31/2017, she was extremely agitated last night, in spite of relatively high dose of propofol, tramadol, and morphine, hence we ended up placing the patient on Nimbex. This morning, the patient was reevaluated again, Nimbex was discontinued, propofol was cut down slowly, and if the patient remains calm, I plan to discontinue propofol, and possibly extubate the patient. Chest x-ray showed no evidence of active disease, labs were all reviewed the seem to be relatively unremarkable. Family is at bedside , and discussed her condition with the family at bedside. ABG was also reviewed , Patient was reevaluated today on 01/01/2018, she was extubated yesterday, tolerated the extubation well, her mentation seems to be intact, patient is very pleasant, in no form of distress. Back on her usual meds which she took at home, and I plan today to transfer the patient out of the ICU to a regular medical floor. We'll arrange for a sitter to be with the patient, will also arrange for psychiatric follow-up. All labs were reviewed including CBC which was normal, hemoglobin is 3.4. Renal profile is normal. Reevaluated today on 01/02/2018, patient is doing great, in no form of distress, basically asymptomatic, all her labs were reviewed and they seem to be unremarkable. Hence from my perspective the patient could be discharged home, assuming she will be cleared by psychiatry and by her primary care physician. Objective - Vital Signs Vital signs: Vital Signs Temp 98.1 F 01/02/18 04:00 Pulse 83 01/02/18 04:00 Resp 17 01/02/18 04:00 BP 124/82 01/02/18 04:00 Pulse Ox 100 01/02/18 04:00 Intake & Output 01/01/18 01/02/18 01/02/18 18:59 06:59 18:59 Intake Total 1160 Balance 1160 Weight 72.8 kg 76.6 kg Intake: IV 500 Sodium Chloride 0.9% 1, 500 000 ml @ 125 mls/hr IV . Q8H [facility] Rx#:[id number] Oral 660 Other: Voiding Method Toilet # Voids 2 2 - Exam Physical Exam: Revealed a 42-year-old female on room air, in no distress. Head: Atraumatic, normocephalic. HEENT:[Neck is supple.] [No neck masses.] [No thyromegaly.] [No JVD.]. PERRLA, EOMI. Chest: [Clear throughout, no crackles, no rhonchi, no wheezes.] Cardiac Exam: [Normal S1 and S2, no S3 gallop, no murmur.] Abdomen: [Soft, nontender, no megaly, no rebound, no guarding, normal bowel sounds.] Extremities: [No clubbing, no edema, no cyanosis.] Neurological Exam: Alert and oriented 3, cranial nerves are intact, no gross focal neurologic deficit. Psychiatric: Normal mood, affect, and mental status examination. Lymphatics: No lymphadenopathy. - Labs CBC & Chem 7: 01/01/18 04:45 01/01/18 04:45 Labs: Microbiology - Last 24 Hours (Table) 12/28/17 10:00 CSF Gram Stain - Final Cerebral Spinal Fluid CSF Culture - Final Assessment and Plan Assessment: 1 acute psychosis, with extreme agitation failed to respond to routine therapy with a combination of Haldol, opiates and benzodiazepines. Possible tramadol withdrawal. 2 acute opiate withdrawal, extreme agitation requiring intubation, extubated on 12/31/2017, and she tolerated the extubation well. 3 bipolar disorder 4 depression 5 previous history of suicidal attempts 6 chronic Ultram dependence 7 restless leg syndrome 8 chronic anxiety Recommendation: Consider discharge planning today, however she has to be cleared by psychiatry and by her primary care physician. If not patient can be transferred to a regular medical floor. Time with Patient: Less than 30
[2018-01-02 12:48] VITALS: BP 127/82; PULSE 80; RESP 18; TEMP 98.3
--- NOTE | 2018-01-02 15:41 | P.CN ---
Psychiatric Consult - . Consult date: 01/02/18 Consult:: Identification data: Patient is a 42-year-old female who [facility] with an alternate mental state. While she was in the ER she became acutely agitated and combative. Her management required sedation and intubation and transferred to the ICU. History of present illness: On presentation to the ICU her serum Lamictal level was 25.2 and UDS was positive for benzodiazepines. Her parents suspected that she overdosed on several medications including Seroquel, Lamictal, trazodone and possibly diazepam. They also found a partially empty bottles of Unisom. Patient was intubated and unresponsive when I first attempted to evaluate her. She was extubated on 12/31/2017. She alleged that she had not taken her psychotropic medications, Seroquel, Lamictal, trazodone and diazepam for "several days". She was vague about her reason for not taking her medications and alleged that she "just forgot." She then decided to "catch up" and extra doses of the medications. She could not explain why she decided to take more than 1 day supply of medication. She was uncertain as to how much medicine she had taken. She denied that she had taken more than "a few capsules of Unisom." She denied that she had taken the medications in a suicide attempt. She denied that she was thinking about suicide and denied that she was experiencing wishes. She denied that she is feeling depressed, hopeless or helpless. She denied that she was experiencing elevated mood or euphoria. She denied that she was experiencing psychotic symptoms such as auditory, visual or olfactory hallucinations, ideas reference etc. She often digressed to the problems she had with "restless legs" and perseverated on the relationship between her restless leg and Seroquel. Past Psychiatric History: She was admitted to the psychiatric unit in December 2015 following an overdose of multiple pills. She communicated her suicide attempt by text to her 20-year-old daughter. Her discharge diagnosis was probable bipolar disorder and her discharge medications included Seroquel 25 mg at bedtime, Klonopin Zoloft 100 mg daily, Klonopin 1 mg 3 times a day, Lamictal 100 mg at bedtime and tramadol 50 mg every 6 hours. She was referred to our psychiatric clinic and has an appointment with Dr. Levin on 12/18/2016. She did not follow-up with her psychiatric appointment, did not receive mental health treatment but received prescriptions for psychotropic medications from her primary care provider. During our interview she denied that the overdose and admission in 2016 was a suicide attempt and minimized the severity of that overdose. She first received mental health treatment when she was 17 years old. She is met with several counselors, therapists and psychiatrists. She has had 4 psychiatric hospitalizations. Substance Use History: She denied use of alcohol or drugs. Social history: She is currently living with her parents. She is unemployed and receives social security disability. She is and has 3 adult children. Mental status exam: She presented as a casually groomed and casually dressed 42- year-old female who was sitting comfortably in her hospital bed in the ICU. She made eye contact and attended to the interview. She had no distinguishing features or prominent physical abnormalities. She had a blunted facial expression. She was alert and oriented to person, place and time. She showed slight psychomotor retardation but no abnormal movements. Her speech was spontaneous with slight decrease in rate, rhythm and volume. She had no articulation difficulty. Affect was blunted and anxious. She denied suicidal ideation or wishes. She denied homicidal ideation. She denied depressive cognitions such as hopelessness, helplessness and worthlessness. She did not express ideas reference, paranoid ideation, magical ideation or delusional thoughts. Her thinking was concrete, digressive, circumstantial and over elaborative. She avoided questions and gave conflicting information about her past history. She denied hallucinations and did not appear to be responding to internal stimuli. We completed the [facility] Memory and Concentration test. Her total weighted error score was 0. Total weighted error score greater than 10 is consistent with dementia. She showed no impairment with attention, concentration, and short-term memory. Impression: She has a 42-year-old female who has a purported diagnosis of bipolar disorder. She presented to the ICU following an overdose of several psychotropic medications. Her management required sedation, intubation and mechanical ventilation. She denied that her overdose was a suicide attempt. She has unable to explain why she had taken extra doses of her medications that produced a toxic level of Lamictal. She minimizes the severity of her actions. She denied that her admission to the psychiatric unit in 2016 was due to a suicide attempt although the record clearly documents that she communicated the overdose andsuicide attempt to family. I discussed my treatment recommendation with her and with ICU nurse. I informed her that I do not feel comfortable with her returning home without additional psychiatric assessment and/or treatment. I recommended transferred to the psychiatric unit for further evaluation. After I left the unit to receive a telephone call that she had left the ICU AGAINST MEDICAL ADVICE. Psychiatric Diagnosis: Multiple drug overdose, rule out suicide attempt, history of bipolar illness Recommendation: My recommendation was to transfer to psychiatric unit for further evaluation. 01/02/18 15:17
== END 2018-01-02 14:38 | disposition left against medical advice (07) | DRG 894 ==
LOC: EC 01:06 → 6ICU 06:39
PROVIDERS: ADMIT Family Medicine; ATTEND Family Medicine
PROC: 009U3ZX Drainage of Spinal Canal, Percutaneous Approach, Diagnostic (ICD-10-PCS; principal; 2017-12-28)
PROC: 0BH18EZ Insertion of Endotracheal Airway into Trachea, Via Natural or Artificial Opening Endoscopic (ICD-10-PCS; 2017-12-28)
PROC: 5A1945Z Respiratory Ventilation, 24-96 Consecutive Hours (ICD-10-PCS; 2017-12-28)
PROC: 06HM33Z Insertion of Infusion Device into Right Femoral Vein, Percutaneous Approach (ICD-10-PCS; 2017-12-28)
PROC: 0D9670Z Drainage of Stomach with Drainage Device, Via Natural or Artificial Opening (ICD-10-PCS; 2017-12-28)
DX: F11.23 Opioid dependence with withdrawal (principal); G93.41 Metabolic encephalopathy; N17.9 Acute kidney failure, unspecified; E87.2 Acidosis; J98.11 Atelectasis; E87.6 Hypokalemia; T40.2X5A Adverse effect of other opioids, initial encounter; F31.9 Bipolar disorder, unspecified; G40.909 Epilepsy, unspecified, not intractable, without status epilepticus; G25.81 Restless legs syndrome; F43.10 Post-traumatic stress disorder, unspecified; D72.829 Elevated white blood cell count, unspecified; F51.04 Psychophysiologic insomnia; M62.838 Other muscle spasm; R25.8 Other abnormal involuntary movements; F17.200 Nicotine dependence, unspecified, uncomplicated; Z71.6 Tobacco abuse counseling; Z79.899 Other long term (current) drug therapy; Z91.5 Personal history of self-harm; Z88.8 Allergy status to other drugs, medicaments and biological substances; Z82.49 Family history of ischemic heart disease and other diseases of the circulatory system
CPT/HCPCS: 36415; 36600; 70450; 71045; 80053; 80175; 80306; 80320; 81001; 81025; 82805; 82945; 83036; 83520; 83605; 83735; 84100; 84132; 84157; 85025; 86592; 87070; 87086; 87205; 87529; 87798; 89050; 93005; 94002; 94003; 95816; 96361; 96372; 96374; 96375; 99285

== ENCOUNTER 2019-09-11 10:12 | Inpatient (IN) | payer MEDICARE, OTHER ==
[2019-09-11] MEDS ORDERED: SODIUM CHLORIDE 0.9% 1,000 ML IV STA (10:35)
[2019-09-11 10:57] LABS: Basophils % (A) 0 %; Eosinophils # (A) 0.2 k/uL (0-0.7); Eosinophils % (A) 2 %; HCT 42.1 % (34.0-46.0); HGB 14.2 gm/dL (11.4-16.0); Lymphocytes # (A) 1.6 k/uL (1.0-4.8); Lymphocytes % (A) 12 %; MCHC 33.6 g/dL (31.0-37.0); MCV 98.2 fL (80.0-100.0); Mean Platelet Volume 7.4; Monocytes # (A) 0.4 k/uL (0-1.0); Monocytes % (A) 3 %; Neutrophils # (A) 11.2 k/uL (1.3-7.7); Neutrophils % (A) 82 %; Platelet Count 365 k/uL (150-450); RBC 4.29 m/uL (3.80-5.40); RDW 13.8 % (11.5-15.5); WBC 13.6 k/uL (3.8-10.6)
[2019-09-11 11:14] LABS: ALT 15 U/L (4-34); AST 24 U/L (14-36); Acetaminophen <10.0 ug/mL; African American GFR (CKD) >90 (>60 ml/min/1.73 sqM); Albumin 4.3 g/dL (3.5-5.0); Alcohol <10 mg/dL; Alkaline Phosphatase 119 U/L (38-126); Anion Gap 13 mmol/L; Blood Urea Nitrogen 11 mg/dL (7-17); Calcium 9.4 mg/dL (8.4-10.2); Carbon Dioxide 17 mmol/L (22-30); Chloride 111 mmol/L (98-107); Glucose 104 mg/dL (74-99); Non-African American GFR(CKD) 85 (>60 ml/min/1.73 sqM); Potassium 4.5 mmol/L (3.5-5.1); Salicylate <1.0 mg/dL; Sodium 141 mmol/L (137-145); Total Bilirubin 0.4 mg/dL (0.2-1.3); Total Protein 7.9 g/dL (6.3-8.2)
[2019-09-11] MEDS ORDERED: LORazepam 2 MG/ML INJ IV STA ×3 (11:17→12:24)
[2019-09-11 11:40] LABS: Lactic Acid, Venous 2.1 mmol/L (0.7-2.0)
[2019-09-11] MEDS ORDERED: ONDANSETRON 4 MG/2 ML VIAL IVP PRN (13:24)
--- NOTE | 2019-09-11 13:24 | ED ---
Recheck HPI - General Source: patient, RN notes reviewed Mode of arrival: ambulatory Limitations: no limitations <Adelso Doan - Last Filed: 09/11/19 13:19> <Amarilis Durbin - Last Filed: 09/16/19 14:18> - General Chief Complaint: Recheck/Abnormal Lab/Rx Stated Complaint: Overdose Time Seen by Provider: 09/11/19 10:35 - History of Present Illness Initial Comments: 44-year-old female presents emergency Department with parents for drug overdose, drug withdrawal. Patient reportedly had been using large amount of tramadol in [place] and she states it is [id number]. Patient came back from [facility] 3 days ago and is on able to receive her tramadol. Patient was given her prescriptions which included Ambien, Valium, Advil and reportedly started abusing these medications. Patient took large quantities of his medications. They states that she is very fidgety, has a history of restless leg syndrome. Patient reportedly did make some suicidal threats the parents she denies being suicidal at this time. Patient has been admitted in the past and intubated for similar reasons. Patient has no physical complaints states that she just cannot control herself. (Adelso Doan) - Related Data Previous Rx's Medication Instructions Recorded Multivitamins, Thera [Multivitamin 1 each PO DAILY@1200 tab 09/13/19 (formulary)] ARIPiprazole [Abilify] 2.5 mg PO HS #30 tab 09/16/19 Desvenlafaxine Succinate [Pristiq 50 mg PO DAILY #30 tab.er.24h 09/16/19 ER] Gabapentin [Neurontin] 200 mg PO TID #180 cap 09/16/19 Allergies Allergy/AdvReac Type Severity Reaction Status Date / Time suvorexant [From Belsomra] AdvReac SLEEP Verified 09/14/19 16:54 PARALYSIS trazodone AdvReac SLEEP Verified 09/14/19 16:54 PARALYSIS Review of Systems ROS Other: All systems not noted in ROS Statement are negative. <Adelso Doan - Last Filed: 09/11/19 13:19> ROS Other: All systems not noted in ROS Statement are negative. <Amarilis Durbin - Last Filed: 09/16/19 14:18> ROS Statement: Those systems with pertinent positive or pertinent negative responses have been documented in the HPI. Past Medical History Past Medical History: Seizure Disorder Additional Past Medical History / Comment(s): Bipolar disorder, depression, previous history of suicidal ideation, previous opiate dependence, previous history of intentional suicide, restless leg syndrome, previous history of right shoulder dislocation, chronic anxiety, muscle spasms, severe problems related to social support group, and chronic psychiatric disorder History of Any Multi-Drug Resistant Organisms: None Reported Additional Past Surgical History / Comment(s): Biopsies of left breast cysts. Past Anesthesia/Blood Transfusion Reactions: No Reported Reaction Past Psychological History: Anxiety, Bipolar, Depression, PTSD Smoking Status: Current every day smoker Past Alcohol Use History: None Reported Past Drug Use History: None Reported - Past Family History Father Family Medical History: Hypertension <Adelso Doan - Last Filed: 09/11/19 13:19> General Exam Limitations: no limitations General appearance: alert, in no apparent distress, anxious, other (Agitated) Head exam: Present: atraumatic, normocephalic, normal inspection Eye exam: Present: normal appearance, PERRL, EOMI. Absent: scleral icterus, conjunctival injection, periorbital swelling ENT exam: Present: normal exam, normal oropharynx, mucous membranes moist Neck exam: Present: normal inspection, full ROM. Absent: tenderness, meningismus, lymphadenopathy Respiratory exam: Present: normal lung sounds bilaterally. Absent: respiratory distress, wheezes, rales, rhonchi, stridor Cardiovascular Exam: Present: regular rate, normal rhythm, normal heart sounds. Absent: systolic murmur, diastolic murmur, rubs, gallop, clicks Neurological exam: Present: alert, oriented X3, CN II-XII intact, other (Uncontrolled movements, very agitated, restless.) Psychiatric exam: Present: agitated Skin exam: Present: warm, dry, intact, normal color. Absent: rash <Adelso Doan M - Last Filed: 09/11/19 13:19> Course Vital Signs 09/11/19 09/11/19 09/11/19 10:18 10:50 12:31 Temperature 97.5 F L Pulse Rate 89 78 102 H Pulse Rate [ Pulse Oximetery ] Respiratory 18 22 22 Rate Blood Pressure 109/73 112/76 Blood Pressure [Right Arm] O2 Sat by Pulse 98 98 100 Oximetry 09/11/19 09/11/19 13:35 14:04 Temperature 98.0 F Pulse Rate 98 Pulse Rate [ 65 Pulse Oximetery ] Respiratory 16 20 Rate Blood Pressure 108/76 Blood Pressure 116/78 [Right Arm] O2 Sat by Pulse 99 94 L Oximetry Procedures - Nunda Protocol (Time Out) Nurse: Sisi Navarro <Adelso Doan - Last Filed: 09/11/19 13:19> Medical Decision Making - Lab Data Result diagrams: 09/11/19 10:45 09/11/19 10:45 <Adelso Doan - Last Filed: 09/11/19 13:19> - Lab Data Result diagrams: 09/13/19 05:45 09/13/19 05:45 <Amarilis Durbin - Last Filed: 09/16/19 14:18> - Medical Decision Making Patient continues to be very agitated, very restless. Poison control was contacted recommended treatment with Ativan. Patient has received multiple doses of Ativan. Patient will be admitted for drug overdose, drug withdrawal, psychiatric evaluation. (Adelso Doan) I was available for consultation in the emergency department. The history and physical exam were done by the midlevel provider. I was consulted for this patients care. I reviewed the case with the midlevel provider and based on their presentation of the patient, I agree with the assessment, medical decision making and plan of care as documented. I evaluated the patient myself. She must be medically cleared before evaluated by mental health. I recommended hospital admission for which Dr. Conrad did accepted the admission. Chart was dictated using [employer] dictation software. Attempts were made to correct any dictation errors however some typographical errors may persist. (Amarilis Durbin) - Lab Data Lab Results 09/11/19 09/11/19 09/11/19 Range/Units 10:45 10:45 10:45 WBC 13.6 H (3.8-10.6) k/uL RBC 4.29 (3.80-5.40) m/uL Hgb 14.2 (11.4-16.0) gm/dL Hct 42.1 (34.0-46.0) % MCV 98.2 (80.0-100.0) fL MCH 33.0 (25.0-35.0) pg MCHC 33.6 (31.0-37.0) g/dL RDW 13.8 (11.5-15.5) % Plt Count 365 (150-450) k/uL Neutrophils % 82 % Lymphocytes % 12 % Monocytes % 3 % Eosinophils % 2 % Basophils % 0 % Neutrophils # 11.2 H (1.3-7.7) k/uL Lymphocytes # 1.6 (1.0-4.8) k/uL Monocytes # 0.4 (0-1.0) k/uL Eosinophils # 0.2 (0-0.7) k/uL Basophils # 0.0 (0-0.2) k/uL Sodium 141 (137-145) mmol/L Potassium 4.5 (3.5-5.1) mmol/L Chloride 111 H (98-107) mmol/L Carbon Dioxide 17 L (22-30) mmol/L Anion Gap 13 mmol/L BUN 11 (7-17) mg/dL Creatinine 0.84 (0.52-1.04) mg/dL Est GFR (CKD-EPI)AfAm >90 (>60 ml/min/1.73 sqM) Est GFR (CKD-EPI)NonAf 85 (>60 ml/min/1.73 sqM) Glucose 104 H (74-99) mg/dL Lactic Ac Sepsis Rflx Plasma Lactic Acid Danilo 2.1 H* (0.7-2.0) mmol/L Calcium 9.4 (8.4-10.2) mg/dL Total Bilirubin 0.4 (0.2-1.3) mg/dL AST 24 (14-36) U/L ALT 15 (4-34) U/L Alkaline Phosphatase 119 (38-126) U/L Ammonia 18 (<30) umol/L Troponin I (0.000-0.034) ng/mL Total Protein 7.9 (6.3-8.2) g/dL Albumin 4.3 (3.5-5.0) g/dL Lipase 312 H (23-300) U/L Salicylates <1.0 mg/dL Acetaminophen <10.0 ug/mL Serum Alcohol <10 mg/dL 09/11/19 09/11/19 Range/Units 10:45 11:41 WBC (3.8-10.6) k/uL RBC (3.80-5.40) m/uL Hgb (11.4-16.0) gm/dL Hct (34.0-46.0) % MCV (80.0-100.0) fL MCH (25.0-35.0) pg MCHC (31.0-37.0) g/dL RDW (11.5-15.5) % Plt Count (150-450) k/uL Neutrophils % % Lymphocytes % % Monocytes % % Eosinophils % % Basophils % % Neutrophils # (1.3-7.7) k/uL Lymphocytes # (1.0-4.8) k/uL Monocytes # (0-1.0) k/uL Eosinophils # (0-0.7) k/uL Basophils # (0-0.2) k/uL Sodium (137-145) mmol/L Potassium (3.5-5.1) mmol/L Chloride (98-107) mmol/L Carbon Dioxide (22-30) mmol/L Anion Gap mmol/L BUN (7-17) mg/dL Creatinine (0.52-1.04) mg/dL Est GFR (CKD-EPI)AfAm (>60 ml/min/1.73 sqM) Est GFR (CKD-EPI)NonAf (>60 ml/min/1.73 sqM) Glucose (74-99) mg/dL Lactic Ac Sepsis Rflx Y Plasma Lactic Acid Danilo (0.7-2.0) mmol/L Calcium (8.4-10.2) mg/dL Total Bilirubin (0.2-1.3) mg/dL AST (14-36) U/L ALT (4-34) U/L Alkaline Phosphatase (38-126) U/L Ammonia (<30) umol/L Troponin I <0.012 (0.000-0.034) ng/mL Total Protein (6.3-8.2) g/dL Albumin (3.5-5.0) g/dL Lipase (23-300) U/L Salicylates mg/dL Acetaminophen ug/mL Serum Alcohol mg/dL Disposition <Adelso Doan - Last Filed: 09/11/19 13:19> <Amarilis Durbin - Last Filed: 09/16/19 14:18> Clinical Impression: Suicidal ideation, Depression, Drug overdose, Altered mental status, Drug withdrawal Disposition: ADMITTED IP TO THIS HOSP Condition: Serious
[2019-09-11] MEDS: SODIUM CHLORIDE 0.9% 1,000 ML IV SCH ×2 (13:41→21:45)
[2019-09-11] MEDS: LORazepam 2 MG/ML INJ IV PRN ×2 (14:41→17:34)
[2019-09-11 15:06] LABS: Amphetamine Screen,Urine Not Detected (NotDetected); Barbiturate Screen,Urine Not Detected (NotDetected); Benzodiazepines Screen,Urine Detected (NotDetected); Cocaine Screen,Urine Not Detected (NotDetected); Methadone Screen, Urine Not Detected (NotDetected); Opiate Screen,Urine Not Detected (NotDetected); Oxycodone Screen, Urine Not Detected (NotDetected); Phencyclidine Screen,Urine Not Detected (NotDetected); Tricyclic Antidepressant,Urine Not Detected (NotDetected); Urn Cannabinoid Scrn Not Detected (NotDetected)
[2019-09-11] MEDS: GABAPENTIN 100 MG CAP PO SCH ×2 (16:46→21:46)
[2019-09-11] MEDS ORDERED: KETOROLAC 30 MG/ML 1 ML VIAL IVP PRN (19:12)
[2019-09-11] MEDS ORDERED: TEMAZEPAM 15 MG CAP PO PRN (19:12)
[2019-09-11] MEDS ORDERED: ACETAMINOPHEN TAB 500 MG TAB PO PRN (19:13)
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
[2019-09-11] MEDS: HEPARIN SODIUM,PORCINE 5,000 UNIT/ML 1 ML VIAL SQ SCH (21:46)
[2019-09-11 23:26] LABS: Appearance,Urine Clear (Clear); Bilirubin,Urine Negative (Negative); Blood,Urine Negative (Negative); Color,Urine Colorless; Glucose,Urine (UA) Negative (Negative); Ketones,Urine Negative (Negative); Leukocyte Esterase,Urine Negative (Negative); Nitrite,Urine Negative (Negative); PH, Urine 6.5 (5.0-8.0); Protein,Urine Negative (Negative); Specific Gravity,Urine 1.006 (1.001-1.035); Urobilinogen,Urine <2.0 mg/dL (<2.0)
--- NOTE | 2019-09-11 23:29 | HP ---
HISTORY AND PHYSICAL I am covering for Dr. Gleason. DATE OF SERVICE: 09/11/2019. CHIEF COMPLAINTS: Overdose and abnormal behavior. HISTORY OF PRESENT ILLNESS: This 44-year-old woman with a past medical history of multiple medical problems including seizure disorder, bipolar depression, previous history of suicidal ideations, drug history of opiate dependence, history of restless legs syndrome, history of intentional suicide being followed by Dr. Gleason in the outpatient setting, also had history of anxiety, bipolar depression, PTSD. The patient also had previous history of psych admissions also. The patient apparently was taking a bunch of medications because the patient was was making some suicidal threats at that time and the patient apparently was also going to the [facility] multiple times and traveled extensively in the [facility] to different cities and according the family and the ER chart, the patient is apparently receiving multiple doses of Ultram in [place], which is rather over-the- counter and the patient just returned 3 days ago and currently the patient is restless, confused and some somewhat combative at times and the patient was admitted to the hospital for further evaluation and treatment. Drug overdosage and change in mental status, metabolic encephalopathy related to drug overdose was considered. The basic labs showed WBC 13.6 and lactic acid is 2.1 after fluid bolus is 1.4. Lipase is 312, and the urine drug screen showed benzodiazepines. Alcohol was negative. There is no history of fever, rigors or chills no history of headache, loss of consciousness, trauma. The patient is only able to give a sketchy history. Most of the history taken from my discussion with staff, review of chart and discussion with the ER physician at this time. The patient is drowsy. PAST MEDICAL HISTORY: Seizure disorder, history of bipolar depression, history of suicidal ideation, opiate dependence, history of intentional suicide, suicidal ideation before, attempts before. History of anxiety, bipolar depression, PTSD. MEDICATIONS: Prior to admission include home medications are: 1. Ambien 10 mg q.h.s. 2. Paxil 20 mg p.o. daily. 3. Valium 5 mg p.o. b.i.d. ALLERGIES: BELSOMRA, TRAZODONE. FAMILY HISTORY: History of hypertension in the family. SOCIAL HISTORY: History of smoking, continued ongoing. No history of any alcohol intake. REVIEW OF SYSTEMS: Could not be taken at length because of the patient's change in mental status. PHYSICAL EXAM: Patient is conscious but arousable, is 98. Blood pressure is 108/76, respirations 16, temperature 98 degrees, pulse ox 98% on room air. HEENT is conjunctivae normal. Oral mucosa moist. NECK is no jugular venous distention. No carotid bruit. No lymph node enlargement. Cardiovascular: S1, S2 muffled. No S3, no S4. Respiration: Breath sounds diminished in the bases. No rhonchi. No crackles. ABDOMEN: Soft, nontender. No mass palpable. LEGS no edema. No swelling. NERVOUS SYSTEM: Higher functions as mentioned earlier. Moves all 4 limbs. No focal motor or sensory deficits. LYMPHATICS: No lymph nodes palpable in the neck, axillae or groin. SKIN: No ulcer, no rash and no bleeding. JOINTS: No active deforming arthropathy. LAB: WBC 13.6, hemoglobin 14.2, sodium 141, potassium 4.5, CO2 17, glucose 104. Plasma lactic acid is 2.1 and lipase is 312 and is positive. ASSESSMENT: 1. Change in mental status, possibly drug overdose leading to acute metabolic encephalopathy. 2. Suicidal ideations and possible attempt. 3. Elevated plasma lactic acid secondary to dehydration. 4. Increased WBC. 5. History of seizure disorder. 6. History of anxiety, bipolar depression, PTSD. 7. History of continued ongoing nicotine dependence. 8. History of possible opiate dependence previously. 9. History of restless legs syndrome. 10.History of degenerative joint disease. 11.History of muscle spasms. 12.FULL CODE. RECOMMENDATIONS AND DISCUSSION: In this 44-year-old woman who presented with multiple complex medical issues, at this time, I recommend continue the current medication, continue symptomatic treatment. Otherwise, Poison Control has been contacted. I would use p.r.n. Ativan. Hold the rest of medications. Psychiatric consultation. Continue with IV fluids. Repeat labs. Prognosis guarded because of suicidal watch and one-to-one precautions. Guarded prognosis because of multiple complex medical issues. A copy of this dictation being forwarded to Dr. Gleason who is the primary physician. MMKEML / LOUISE: [id number] / MTDD
[2019-09-12] MEDS: LORazepam 2 MG/ML INJ IV PRN ×3 (04:15→12:33)
[2019-09-12] MEDS: THIAMINE 100 MG TAB PO SCH ×2 (04:37→17:34)
[2019-09-12 08:12] LABS: Basophils % (A) 0 %; Eosinophils # (A) 0.1 k/uL (0-0.7); Eosinophils % (A) 1 %; HCT 38.6 % (34.0-46.0); HGB 12.5 gm/dL (11.4-16.0); Lymphocytes # (A) 1.3 k/uL (1.0-4.8); Lymphocytes % (A) 14 %; MCH 32.7 pg (25.0-35.0); MCHC 32.4 g/dL (31.0-37.0); MCV 100.7 fL (80.0-100.0); Macrocytosis Slight; Mean Platelet Volume 7.4; Monocytes # (A) 0.5 k/uL (0-1.0); Monocytes % (A) 5 %; Neutrophils # (A) 7.3 k/uL (1.3-7.7); Neutrophils % (A) 79 %; Platelet Count 273 k/uL (150-450); RBC 3.84 m/uL (3.80-5.40); RDW 13.5 % (11.5-15.5); WBC 9.2 k/uL (3.8-10.6)
[2019-09-12] MEDS: PANTOPRAZOLE 40 MG/10 ML VIAL IVP SCH (08:20)
[2019-09-12 08:21] LABS: ALT 12 U/L (4-34); AST 19 U/L (14-36); African American GFR (CKD) >90 (>60 ml/min/1.73 sqM); Albumin 3.7 g/dL (3.5-5.0); Alkaline Phosphatase 100 U/L (38-126); Anion Gap 9 mmol/L; Blood Urea Nitrogen 6 mg/dL (7-17); Calcium 8.6 mg/dL (8.4-10.2); Carbon Dioxide 19 mmol/L (22-30); Chloride 112 mmol/L (98-107); Glucose 99 mg/dL (74-99); Non-African American GFR(CKD) >90 (>60 ml/min/1.73 sqM); Sodium 140 mmol/L (137-145); Total Bilirubin 0.5 mg/dL (0.2-1.3); Total Protein 6.9 g/dL (6.3-8.2)
[2019-09-12] MEDS: GABAPENTIN 100 MG CAP PO SCH ×3 (08:21→22:17)
[2019-09-12] MEDS: HEPARIN SODIUM,PORCINE 5,000 UNIT/ML 1 ML VIAL SQ SCH ×2 (08:21→22:17)
[2019-09-12] MEDS: SODIUM CHLORIDE 0.9% 1,000 ML IV SCH ×2 (10:53→22:17)
[2019-09-12 11:33] VITALS: BMI 23.4
[2019-09-12] MEDS: MULTIVITAMINS, THERA 1 EACH TAB PO SCH (12:21)
[2019-09-12] MEDS: FOLIC ACID 1 MG TAB PO SCH (12:26)
--- NOTE | 2019-09-12 21:39 | PN ---
PROGRESS NOTE DATE OF SERVICE: 09/12/2019 I am covering for Dr. Gleason. This 44-year-old woman was admitted with change in mental status and possibly overdose of multiple medications, is being closely monitored. Patient continues to be slightly drowsy. No chest pain. No palpitation. PHYSICAL EXAMINATION: Pulse 69, blood pressure 128/70, respiration 18, temperature 98.2, pulse ox 98% on room air. HEENT: Conjunctivae normal. Oral mucosa moist. NECK: No jugular venous distention. No lymph node enlargement. CARDIOVASCULAR: S1, S2. RESPIRATORY: Diminished breath sounds at the bases. No rhonchi, no crackles. ABDOMEN: Soft, nontender. LEGS: No edema, no swelling. NERVOUS SYSTEM: No focal deficits. LABS: CBC within normal. MCV 100.7, CO2 is 19. Otherwise, other labs are normal. Drug screen noted. ASSESSMENT: 1. Change in mental status, possibly acute metabolic encephalopathy secondary to drug overdosage. 2. Suicidal ideations, possible suicide attempt. 3. Elevated plasma lactic acid, possibly secondary dehydration, present on admission. 4. Increased WBC. 5. History of seizure disorder. 6. History of anxiety, bipolar depression, PTSD. 7. History of continued ongoing nicotine dependence. 8. History of possible opiate dependence previously. 9. History of restless leg syndrome. 10.History of degenerative joint disease. 11.History of muscle spasm. 12.FULL CODE. RECOMMENDATIONS AND DISCUSSION: Recommend to continue current management and symptomatic treatment. The patient is still slightly drowsy. Poison Control has been contacted. Otherwise, continue the rest of symptomatic treatment and Dr. Gleason will follow. Once the patient is stabilized, inpatient psych consult. Further recommendations to follow. MMODL / IJN: [id number] /
[2019-09-13] MEDS: LORazepam 2 MG/ML INJ IV PRN ×2 (03:07→09:05)
[2019-09-13] MEDS: SODIUM CHLORIDE 0.9% 1,000 ML IV SCH (05:27)
[2019-09-13 06:29] LABS: Basophils % (A) 0 %; Eosinophils # (A) 0.1 k/uL (0-0.7); Eosinophils % (A) 1 %; HCT 35.9 % (34.0-46.0); HGB 11.7 gm/dL (11.4-16.0); Lymphocytes # (A) 1.3 k/uL (1.0-4.8); Lymphocytes % (A) 16 %; MCH 32.4 pg (25.0-35.0); MCHC 32.6 g/dL (31.0-37.0); MCV 99.3 fL (80.0-100.0); Mean Platelet Volume 7.7; Monocytes # (A) 0.4 k/uL (0-1.0); Monocytes % (A) 5 %; Neutrophils # (A) 6.2 k/uL (1.3-7.7); Neutrophils % (A) 77 %; Platelet Count 245 k/uL (150-450); RBC 3.61 m/uL (3.80-5.40); RDW 13.7 % (11.5-15.5); WBC 8.1 k/uL (3.8-10.6)
[2019-09-13 06:43] LABS: ALT 11 U/L (4-34); AST 18 U/L (14-36); African American GFR (CKD) >90 (>60 ml/min/1.73 sqM); Albumin 3.2 g/dL (3.5-5.0); Alkaline Phosphatase 95 U/L (38-126); Anion Gap 7 mmol/L; Blood Urea Nitrogen 5 mg/dL (7-17); Calcium 8.5 mg/dL (8.4-10.2); Carbon Dioxide 17 mmol/L (22-30); Chloride 114 mmol/L (98-107); Glucose 93 mg/dL (74-99); Non-African American GFR(CKD) >90 (>60 ml/min/1.73 sqM); Potassium 3.9 mmol/L (3.5-5.1); Sodium 138 mmol/L (137-145); Total Bilirubin 0.3 mg/dL (0.2-1.3); Total Protein 6.2 g/dL (6.3-8.2)
--- NOTE | 2019-09-13 08:18 | P.PN ---
Subjective Principal diagnosis: Insomnia with overdose The patient is here essentially for overdose of Valium and Paxil and history of taking tramadol. I spoke with the patient at length and stated that due to the circumstances, I would probably not be able to prescribe continue controlled substance. She is supposedly petitioned to go to [facility]. Objective - Vital Signs Vital signs: Vital Signs Temp 98.8 F 09/13/19 03:10 Pulse 55 L 09/13/19 03:10 Resp 14 09/13/19 03:10 BP 107/72 09/13/19 03:10 Pulse Ox 100 09/13/19 03:10 Intake & Output 09/12/19 09/13/19 09/13/19 18:59 06:59 18:59 Intake Total 784 1220 Balance 784 1220 Weight 62 kg 59.6 kg Intake: Intake, IV Titration 1100 Amount Sodium Chloride 0.9% 1, 1100 000 ml @ 100 mls/hr IV . Q10H RUBIA Rx#:[id number] Oral 784 120 Other: # Voids 1 - Constitutional General appearance: Present: average body habitus - EENT Eyes: Absent: abnormal pupil - Neck Neck: Absent: lymphadenopathy - Respiratory Respiratory: bilateral: CTA - Cardiovascular Rhythm: regular Heart sounds: normal: S1, S2 Abnormal Heart Sounds: Absent: S3 Gallop - Gastrointestinal General gastrointestinal: Present: soft. Absent: tenderness - Neurologic Neurologic: Present: CNII-XII intact - Labs CBC & Chem 7: 09/13/19 05:45 09/13/19 05:45 Labs: Abnormal Lab Results - Last 24 Hours (Table) 09/12/19 09/13/19 09/13/19 Range/Units 07:51 05:45 05:45 RBC 3.61 L (3.80-5.40) m/uL Chloride 112 H 114 H (98-107) mmol/L Carbon Dioxide 19 L 17 L (22-30) mmol/L BUN 6 L 5 L (7-17) mg/dL Total Protein 6.2 L (6.3-8.2) g/dL Albumin 3.2 L (3.5-5.0) g/dL Assessment and Plan (1) Altered mental status Current Visit: Yes Status: Acute Code(s): R41.82 - ALTERED MENTAL STATUS, UNSPECIFIED SNOMED Code(s): 615513311 (2) Drug overdose Current Visit: Yes Status: Acute Code(s): T50.901A - POISONING BY UNSP DRUG/MEDS/BIOL SUBST, ACCIDENTAL, INIT SNOMED Code(s): 68700160 (3) Acute metabolic encephalopathy Current Visit: No Status: Acute Code(s): G93.41 - METABOLIC ENCEPHALOPATHY SNOMED Code(s): 22971052 Plan: Most likely prove transfer to psychiatric unit. We will continue to follow as necessary. New See orders otherwise.
[2019-09-13 08:59] VITALS: TEMP 98.7
[2019-09-13] MEDS: GABAPENTIN 100 MG CAP PO SCH (09:05)
[2019-09-13] MEDS: HEPARIN SODIUM,PORCINE 5,000 UNIT/ML 1 ML VIAL SQ SCH (09:05)
[2019-09-13] MEDS: THIAMINE 100 MG TAB PO SCH (09:05)
[2019-09-13] MEDS: PANTOPRAZOLE 40 MG/10 ML VIAL IVP SCH (09:05)
[2019-09-13] MEDS ORDERED: LORazepam 1 MG TAB PO PRN (09:32)
--- NOTE | 2019-09-13 11:02 | P.DS ---
Providers Date of admission: 09/11/19 13:39 Attending physician: Enrique Gleason Consults: 09/11/19 13:25 Consult Physician Routine Consulting Provider: Bony Stoddard Consult Reason/Comments: Depression, suicidal ideation Do you want consulting provider notified?: Yes Primary care physician: Enrique Gleason - Discharge Diagnosis(es) (1) Altered mental status Current Visit: Yes Status: Acute (2) Drug overdose Current Visit: Yes Status: Acute (3) Acute metabolic encephalopathy Current Visit: No Status: Acute Hospital Course: The patient was essentially admitted for altered mental status and Ambien. She does struggle with insomnia. Psychiatry has evaluated the patient and the patient is now petitioned to transfer to dental health unit. The patient is agreeable at this time. We will continue initially instituted medications and follow-up with her when she is transferred to [facility]. Patient Condition at Discharge: Serious Plan - Discharge Summary New Discharge Prescriptions: New Folic Acid 1 mg PO DAILY@1200 tab Multivitamins, Thera [Multivitamin (formulary)] 1 each PO DAILY@1200 tab Gabapentin [Neurontin] 200 mg PO TID cap Acetaminophen Tab [Tylenol] 500 mg PO Q6HR PRN tab PRN Reason: Fever and/ or MILD Pain Thiamine [Vitamin B-1] 100 mg PO BID-W/MEALS tab Discontinued Diazepam [Valium] 5 mg PO BID Zolpidem [Ambien] 10 mg PO HS PARoxetine [Paxil] 20 mg PO DAILY Discharge Medication List Acetaminophen Tab [Tylenol] 500 mg PO Q6HR PRN tab 09/13/19 [Rx] Folic Acid 1 mg PO DAILY@1200 tab 09/13/19 [Rx] Gabapentin [Neurontin] 200 mg PO TID cap 09/13/19 [Rx] Multivitamins, Thera [Multivitamin (formulary)] 1 each PO DAILY@1200 tab 09/13/19 [Rx] Thiamine [Vitamin B-1] 100 mg PO BID-W/MEALS tab 09/13/19 [Rx] Follow up Appointment(s)/Referral(s): Enrique Gleason MD [Primary Care Provider] - 1-2 days Discharge Disposition: TRANSFER TO PSYCH HOSP/UNIT
[2019-09-13 12:30] VITALS: BP 105/72; PULSE 58; RESP 16
[2019-09-13] MEDS: FOLIC ACID 1 MG TAB PO SCH (12:32)
[2019-09-13] MEDS: MULTIVITAMINS, THERA 1 EACH TAB PO SCH (12:32)
[2019-09-14] MEDS ORDERED: PANTOPRAZOLE 40 MG TABLET PO SCH (07:30)
== END 2019-09-13 15:35 | DRG 917 ==
LOC: EC 10:12 → 3SCARD 13:39
PROVIDERS: ADMIT Family Medicine; ATTEND Family Medicine
DX: T40.4X2A Poisoning by other synthetic narcotics, intentional self-harm, initial encounter (principal); G93.41 Metabolic encephalopathy; F31.30 Bipolar disorder, current episode depressed, mild or moderate severity, unspecified; E86.0 Dehydration; F17.200 Nicotine dependence, unspecified, uncomplicated; G25.81 Restless legs syndrome; G40.909 Epilepsy, unspecified, not intractable, without status epilepticus; F43.10 Post-traumatic stress disorder, unspecified; F39 Unspecified mood [affective] disorder; G47.00 Insomnia, unspecified; M19.90 Unspecified osteoarthritis, unspecified site; Z79.899 Other long term (current) drug therapy; Z82.49 Family history of ischemic heart disease and other diseases of the circulatory system; Z88.8 Allergy status to other drugs, medicaments and biological substances
CPT/HCPCS: 36415; 80053; 80306; 80320; 80329; 81003; 81025; 82140; 83520; 83605; 83690; 84484; 85025; 93005; 96374; 96376; 99285

== ENCOUNTER 2019-09-13 14:58 | Inpatient (IN) | payer MEDICARE ==
[2019-09-13] MEDS ORDERED: ACETAMINOPHEN TAB 500 MG TAB PO PRN (16:12)
[2019-09-13] MEDS ORDERED: ZIPRASIDONE 20 MG VIAL IM PRN (16:17)
[2019-09-13] MEDS ORDERED: MAG HYDROX/AL HYDROX/SIMETH 30 ML CUP PO PRN (16:17)
[2019-09-13] MEDS ORDERED: MAGNESIUM HYDROXIDE 2,400 MG/10 ML CUP PO PRN (16:17)
[2019-09-13] MEDS ORDERED: LORazepam 2 MG/ML INJ IM PRN (16:19)
[2019-09-13] MEDS: GABAPENTIN 100 MG CAP PO SCH (22:01)
[2019-09-14] MEDS: LORazepam 1 MG TAB PO PRN ×2 (03:31→16:09)
[2019-09-14] MEDS ORDERED: NICOTINE 14MG/24HR PATCH TRANSDERM SCH (09:00)
[2019-09-14] MEDS: MULTIVITAMINS, THERA 1 EACH TAB PO SCH (09:06)
[2019-09-14] MEDS: GABAPENTIN 100 MG CAP PO SCH ×3 (09:06→21:02)
[2019-09-14] MEDS: DESVENLAFAXINE SUCCINATE 50 MG TAB.ER.24H PO SCH (09:39)
--- NOTE | 2019-09-14 15:10 | P.HP ---
Psychiatric H&P - . H&P Date: 09/14/19 History & Physical: IDENTIFYING DATA: The patient is a 44-year-old female transferred to psychiatric unit from medicine where she was treated for an acute drug overdose. HISTORY OF PRESENT ILLNESS: I reviewed the medical record, interviewed the patient and spoke with her mother and father on the telephone. [place] returned to the [place] from [place] on , 09/09/2019. She had been in contact with her parents while she was in [place] and at her request they obtain prescriptions for 3 medications. Her parents were unaware of the names of the prescriptions. During our conversation she talked about taking several Ambien because she could not sleep as she was having "severe" restless leg symptoms. Her parents described a marked change in her behavior during the short period of time that she was home (approximately 36 hours) where she became confused and argumentative. They describe some unusual behaviors. For example, she had turned up to the heat overnight. She could not find her suitcase and talked about her son "Gideon". Her father stated she does not have a son named Gideon (Gideon is her brother's name). They went to her room and found that she had taking 98 out of 100 tablets of 1 medication and 50 tablets from the 2 other prescriptions in addition to taking several of these tablets of Aleve. According to our records her medications included Valium 5 mg twice a day, Ambien 10 mg at bedtime and Paxil 20 mg daily. According to [facility] she was prescribed 90 tablets of Ambien 10 mg and 180 tablets of Valium 5 mg on 07/08/2019. 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 According to the emergency physician's note she was "using large amount of tramadol in [place]." Because tramadol was only available by prescription she did not have access to the tramadol which [place] the [place]. Her primary complaints was anxiety, depression, insomnia and "restless legs". She was keen on obtaining additional prescriptions for Ambien. She is disappointed that I would not prescribe either Ambien or diazepam. She described subjective symptoms of anxiety. I could not identify clear symptoms of depression other than subjective complaints of depression. PAST PSYCHIATRIC HISTORY: This is her fifth psychiatric hospitalization. She was admitted to this unit in December 2015 following an overdose of Xanax and "multiple pills" intentionally in a suicide attempt which she communicated by text to her 20-year-old daughter. She was discharged with the diagnoses of probable bipolar disorder. Her discharge medications included tramadol, Lamictal, Klonopin, Zoloft and Seroquel. She talked about having been a patient of Dr. Alfonso for many years and stated the therapeutic relationship ended because they became friends. After she left Dr. Alfonso services she obtained her psychotropic medications from family doctor. I cannot identify clear history of elevated mood or sustained irritability consistent with sheila or hypomania. She denied history of psychotic symptoms such as hallucinations, delusions or thought disturbances. PAST MEDICAL HISTORY: She is had several presentations to the ER and admissions to the medicine for such conditions as tramadol withdrawal and seizures. ALLERGIES: Suvorexant, trazodone SUBSTANCE USE HISTORY: She denied history of use of drugs or alcohol. However her use of tramadol suggestive of dependence since she was admitted to the medicine unit for tramadol withdrawal. FAMILY PSYCHIATRIC/SUBSTANCE USE HISTORY: Her father has a history of depression LEGAL HISTORY: Denied SOCIAL HISTORY: She was reluctant to provide much information about her social history. She graduated from high school and received a degree in economics from [employer]. She is and has 3 children. She is currently unemployed and lives with her parents. MENTAL STATUS EXAM: Presented as a thin casually groomed 44-year-old female who looked her stated age. She made eye contact and attended to interview. She had no distinguishing features or prominent physical abnormalities. She had a blunted but bright facial expression. She is alert and oriented to person, place and time. She showed no abnormality of psychomotor activity. Her speech was spontaneous with normal rate, rhythm and volume. Her affect was blunted but stable and appropriate. She denied suicidal ideation, wishes or homicidal ideation. She did not express feelings of hopelessness or worthlessness. She ruminated about the circumstances that led to this hospitalization and perseverated on her needs for medication particularly controlled substances. She did not express ideas reference, paranoid ideation or delusions. Her thinking was abstract and associations were coherent, logical and goal-directed. She denied express clang associations, neologisms or blocking. She denied hallucinations and did not appear to responding to internal stimuli. Global impression of intellect is above ave rage. She is unaware of her substance use problems but is accepting need for treatment. STRENGTHS: Stable housing, supportive family, good physical health WEAKNESSES: Chronic mental health issues, substance use issues IMPRESSION: She is a 34-year-old female transferred from medicine where she was admitted with acute overdose of Ambien, Valium, Paxil and Aleve. She was minimally cooperative with the interview and perseverated about the need for controlled substance to address her insomnia and "restless legs". She minimizes severity of the overdose alleging that she was treating her insomnia and "restless legs". Her parents provided more information about the extent of the overdose and the impairment that resulted. I suspect that she was experiencing acute opiate and sedative/hypnotic withdrawal from chronic use of tramadol, Valium and Ambien. She is complaining of subjective anxiety and depressive symptoms but does not described objective symptoms. She is had several past psychiatric hospitalizations including one to our unit following an overdose. She denies a medication use was a suicide attempt. She is denying current suicidal ideation, plan or intent. She appreciated an inpatient basis with combination of multimodal therapy psychotropic medications. Avoid narcotic Medications if at all possible. PRINCIPLE DIAGNOSIS: Multiple drug overdose, opiate withdrawal, opiate use disorder, hypnotic use disorder, benzodiazepine use disorder, unspecified mood disorder, rule out major depressive disorder, cluster B personality disorder RECOMMENDATION: Admitted to the psychiatric unit. Safety precautions. Consult medicine for this physical exam and medical history. brush worker to obtain an initial psychosocial assessment and coordinate discharge and aftercare. Begin Pristiq ER 50 mg daily and Abilify 2.2 mg at bedtime for treatment of depression and anxiety symptoms. Ativan 1 mg by mouth at 3 times a day when necessary for anxiety and monitor frequency of use of her benzodiazepines. Avoid prescription of or sedative, hypnotic or anxiolytic medications. Encourage participation in therapeutic groups and activities. Evaluate current status response to treatment daily basis. Allergies Allergy/AdvReac Type Severity Reaction Status Date / Time suvorexant [From [facility]] AdvReac SLEEP Verified 09/11/19 13:52 PARALYSIS trazodone AdvReac SLEEP Verified 09/11/19 13:52 PARALYSIS Vital Signs Temp 97.8 F 09/14/19 05:12 Pulse 76 09/14/19 05:12 Resp 17 09/14/19 05:12 BP 125/71 09/14/19 05:12 Pulse Ox 98 09/14/19 05:12 Intake & Output 09/13/19 09/14/19 09/14/19 18:59 06:59 18:59 Weight 58.7 kg Laboratory Last Values Triglycerides 205 mg/dL (<150) H 09/14/19 08:19 Cholesterol 195 mg/dL (<200) 09/14/19 08:19 LDL Cholesterol, Calc 102 mg/dL (0-99) H 09/14/19 08:19 HDL Cholesterol 52 mg/dL (40-60) 09/14/19 08:19 TSH 0.649 mIU/L (0.465-4.680) 09/14/19 08:19 09/14/19 10:32 09/14/19 11:22 09/14/19 15:07
[2019-09-14] MEDS: ARIPiprazole 5 MG TAB PO SCH (21:00)
[2019-09-15] MEDS: LORazepam 1 MG TAB PO PRN ×2 (03:28→12:06)
[2019-09-15] MEDS: GABAPENTIN 100 MG CAP PO SCH ×3 (09:13→20:42)
[2019-09-15] MEDS: DESVENLAFAXINE SUCCINATE 50 MG TAB.ER.24H PO SCH (09:13)
[2019-09-15] MEDS: MULTIVITAMINS, THERA 1 EACH TAB PO SCH (12:06)
--- NOTE | 2019-09-15 15:12 | P.PN ---
Subjective Progress Note Date: 09/15/19 Principal diagnosis: Multiple drug overdose, r/o opiate use disorder, r/o hypnotic use disorder, r/o benzodiazepine use disorder, r/o major depressive disorder, cluster B personality disorder I reviewed the medical record, interviewed the patient and discuss her treatment and treatment plan during team meeting. She denies that the overdose was a suicide attempt. She again talked about experiencing distressing "restless legs" and taking Valium, Ambien and Aleve find relief of the leg pain. She denied feeling depressed or having thoughts of or suicide. She denied persistent overwhelming anxiety that she is unable to control. We talked about discharge and aftercare. She plans to return to her parents home and again look [place] work [place]. She will follow up with her primary doctor. She has no interest in mental health services. Objective - Vital Signs Vital signs: Vital Signs Temp 97.8 F 09/14/19 05:12 Pulse 76 09/15/19 12:08 Resp 16 09/15/19 03:25 BP 106/70 09/15/19 12:08 Pulse Ox 98 09/14/19 05:12 Intake & Output 09/14/19 09/15/19 09/15/19 18:59 06:59 18:59 Weight 58.7 kg - Exam She presented as a casually dressed and groomed 44-year-old female who is alert and fully oriented. She made eye contact and attended to the interview. She she had no distinguishing features or prominent physical abnormalities. She had a blunted facial expression. Her speech was spontaneous with normal rate, rhythm and volume. She had a slow but steady gait. She denied feeling hopeless, helpless or worthless. She does not express ideas reference, paranoid thoughts or delusional beliefs. Her thinking was abstract and associations were coherent and logical. She did not appear to be responding to internal stimuli. Assessment and Plan Assessment: I suspect that the overdose was unintentional and not a suicide attempt. Plan: Continue current medications. Plan for discharge on 09/16/2019.
[2019-09-15] MEDS: ARIPiprazole 5 MG TAB PO SCH (20:42)
[2019-09-15] MEDS: LORazepam 0.5 MG TAB PO PRN (22:28)
[2019-09-16] MEDS: LORazepam 0.5 MG TAB PO PRN (05:08)
[2019-09-16 05:14] VITALS: BP 105/70; PULSE 88; RESP 12; TEMP 98
[2019-09-16] MEDS: DESVENLAFAXINE SUCCINATE 50 MG TAB.ER.24H PO SCH (09:40)
[2019-09-16] MEDS: GABAPENTIN 100 MG CAP PO SCH (09:41)
[2019-09-16] MEDS: MULTIVITAMINS, THERA 1 EACH TAB PO SCH (09:41)
--- NOTE | 2019-09-16 13:46 | P.DS ---
Providers Date of admission: 09/13/19 15:39 Attending physician: Raymond Hammer MD Consults: 09/13/19 16:17 Consult Physician Routine Consulting Provider: Enrique Gleason Consult Reason/Comments: H&P and medical Do you want consulting provider notified?: Yes Primary care physician: Enrique Gleason - Discharge Diagnosis(es) (1) Multiple drug overdose Status: Resolved Priority: High (2) Acute metabolic encephalopathy Status: Resolved Priority: High (3) Sedative, hypnotic, or anxiolytic abuse Status: Chronic Priority: High Hospital Course: The patient is a 44-year-old female transferred to psychiatric unit from [facility] where she was treated for an acute drug overdose. [place] from [facility] on , 09/09/2019. She had been in contact with her parents while she was in [facility] and at her request they obtain prescriptions for 3 medications. Her parents were unaware of the names of the prescriptions. During our conversation she talked about taking several Ambien because she could not sleep as she was having "severe" restless leg symptoms. Her parents described a marked change in her behavior during the short period of time that she was home (approximately 36 hours) where she became confused and argumentative. They describe some unusual behaviors. For example, she had turned up to the heat overnight. She could not find her suitcase and talked about her son "Gideon". Her father stated she does not have a son named Gideon (Gideon is her brother's name). They went to her room and found that she had taking 98 out of 100 tablets of 1 medication and 50 tablets from the 2 other prescriptions in addition to taking several of these tablets of Aleve. According to our records her medications included Valium 5 mg twice a day, Ambien 10 mg at be dtime and Paxil 20 mg daily. According to [facility] she was prescribed 90 tablets of Ambien 10 mg and 180 tablets of Valium 5 mg on 07/08/2019. 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 According to the emergency physician's note she was "using large amount of tramadol in [place]." Because tramadol was only available by prescription she did not have access to the tramadol [place] the [place]. Her primary complaints was anxiety, depression, insomnia and "restless legs". She was keen on obtaining additional prescriptions for Ambien. She is disappointed that I would not prescribe either Ambien or diazepam. She described subjective symptoms of anxiety. I could not identify clear symptoms of depression other than subjective complaints of depression. This is her fifth psychiatric hospitalization. She was admitted to this unit in December 2015 following an overdose of Xanax and "multiple pills" intentionally in a suicide attempt which she communicated by text to her 20-year-old daughter. She was discharged with the diagnoses of probable bipolar disorder. Her discharge medications included tramadol, Lamictal, Klonopin, Zoloft and Seroquel. She talked about having been a patient of Dr. Alfonso for many years and stated the therapeutic relationship ended because they became friends. After she left Dr. Alfonso services she obtained her psychotropic medications from family doctor. I cannot identify clear history of elevated mood or sustained irritability consistent with sheila or hypomania. She denied history of psychotic symptoms such as hallucinations, delusions or thought disturbances. He admitted her voluntarily to the psychiatric unit under the care of this instructional writer. Provided a comprehensive biopsychosocial assessment. She fully recovered from the acute encephalopathy when she arrived on the unit. She denied that she had taking the medications in a suicide attempt. She alleged that she was distressed by her "restless leg". The construction administrative assistant prescribed gabapentin 200 mg 3 times a day for the treatment of her complaints of "restless pain". We prescribed Abilify to half milligrams at bedtime and Pristiq ER 50 mg daily for complaints of depression and anxiety. She denied that she was abusing the medications and denied that she was abusing tramadol course experiencing opiate withdrawal from having used tramadol while she was in [place]. She showed no withdrawal symptoms during her brief hospital stay. She participated in therapeutic groups and activities. She posed no management problem and at the facility here with dyscontrol. She denied side effects to her prescribed medications. She was decided that I would not prescribe Ativan at discharge. She will follow-up with her primary doctor. She was not interested and referral for individual therapy. Patient Condition at Discharge: Stable Plan - Discharge Summary Discharge Rx Participant: No New Discharge Prescriptions: New ARIPiprazole [Abilify] 2.5 mg PO HS #30 tab Desvenlafaxine Succinate [Pristiq ER] 50 mg PO DAILY #30 tab.er.24h Continue Multivitamins, Thera [Multivitamin (formulary)] 1 each PO DAILY@1200 tab Gabapentin [Neurontin] 200 mg PO TID #180 cap Discontinued Folic Acid 1 mg PO DAILY@1200 tab Acetaminophen Tab [Tylenol] 500 mg PO Q6HR PRN tab PRN Reason: Fever and/ or MILD Pain Thiamine [Vitamin B-1] 100 mg PO BID-W/MEALS tab Discharge Medication List Multivitamins, Thera [Multivitamin (formulary)] 1 each PO DAILY@1200 tab 09/13/19 [Rx] ARIPiprazole [Abilify] 2.5 mg PO HS #30 tab 09/16/19 [Rx] Desvenlafaxine Succinate [Pristiq ER] 50 mg PO DAILY #30 tab.er.24h 09/16/19 [Rx] Gabapentin [Neurontin] 200 mg PO TID #180 cap 09/16/19 [Rx] Follow up Appointment(s)/Referral(s): [facility] [Outside] - 1 Week (09/21/19 at 1 pm with T[facility]) [facility] [NON-STAFF] - 1 Week Patient Instructions/Handouts: Mood Disorders (DC), Anxiety (ED) Activity/Diet/Wound Care/Special Instructions: Activity and diet as tolerated. Avoid the use of street drugs and alcohol. Take all medications as prescribed. When you are in need of refills on your medications please contact your medical provider and/or outpatient psychiatrist to have this done. Please go to scheduled outpatient appointment for aftercare treatment. If symptoms return or become worse, call the crisis line at and/or go to the nearest emergency room for evaluation. Discharge Disposition: HOME SELF-CARE
== END 2019-09-16 12:25 | disposition home or self-care (01) | DRG 885 ==
LOC: 3MHU 15:39
PROVIDERS: ADMIT Psychiatry & Neurology Psychiatry; ATTEND Psychiatry & Neurology Psychiatry
DX: F31.9 Bipolar disorder, unspecified (principal); G93.41 Metabolic encephalopathy; F11.23 Opioid dependence with withdrawal; F13.10 Sedative, hypnotic or anxiolytic abuse, uncomplicated; F41.9 Anxiety disorder, unspecified; G25.81 Restless legs syndrome; G47.00 Insomnia, unspecified; T42.6X1D Poisoning by other antiepileptic and sedative-hypnotic drugs, accidental (unintentional), subsequent encounter; T42.4X1D Poisoning by benzodiazepines, accidental (unintentional), subsequent encounter; T39.31 Poisoning by, adverse effect of and underdosing of propionic acid derivatives; Z79.899 Other long term (current) drug therapy; Z81.8 Family history of other mental and behavioral disorders; Z56.0 Unemployment, unspecified; Z88.8 Allergy status to other drugs, medicaments and biological substances; F60.89 Other specific personality disorders
CPT/HCPCS: 80061; 83036; 84443

== ENCOUNTER 2019-10-04 11:55 | Emergency (ER) | payer MEDICARE ==
[2019-10-04 12:06] VITALS: BP 106/73; PULSE 91; RESP 18; TEMP 97.5
--- NOTE | 2019-10-04 12:42 | ED ---
Overdose HPI - General Chief Complaint: Overdose Stated Complaint: possible drug overdose Time Seen by Provider: 10/04/19 12:00 Source: patient, family Mode of arrival: ambulatory Limitations: no limitations - History of Present Illness Initial Comments: The patient is a 44-year-old female with past medical history of depression, bipolar and previous history of overdose who presents to the emergency department accompanied by her brother. Brother reports the history. He states his parents found the patient at home overly sedated. She has a history of overdose. She picked up her medications this morning which are prescribed to her by Dr. Gleason. She is prescribed Ambien and Valium for sleep assistance. Her brother counted the pills. She had 11 missing Ambien tablets which are 10 mg and 22 missing Valium tablets which are 5 mg. The patient reports that she only took 4 of each however they cannot find the additional pills. She denies using any illicit substances or drinking alcohol. She denies suicidal thoughts. She took the tablets to help herself sleep. Patient is not oriented to day or time. Slurred speech upon arrival. States that she took the tablets around 9 AM and the brother cannot verify this. There are no other alleviating, precipitating or modifying factors - Related Data Home Medications Medication Instructions Recorded Confirmed Diazepam [Valium] 5 mg PO BID PRN 10/04/19 10/04/19 Multivitamins, Thera [Multivitamin 1 tab PO DAILY@1200 10/04/19 10/04/19 (formulary)] PARoxetine [Paxil] 20 mg PO DAILY 10/04/19 10/04/19 Zolpidem [Ambien] 10 mg PO HS PRN 10/04/19 10/04/19 Previous Rx's Medication Instructions Recorded ARIPiprazole [Abilify] 2.5 mg PO HS #30 tab 09/16/19 Desvenlafaxine Succinate [Pristiq 50 mg PO DAILY #30 tab.er.24h 09/16/19 ER] Gabapentin [Neurontin] 200 mg PO TID #180 cap 09/16/19 Allergies Allergy/AdvReac Type Severity Reaction Status Date / Time suvorexant [From [facility]] AdvReac SLEEP Verified 10/04/19 13:18 PARALYSIS trazodone AdvReac SLEEP Verified 10/04/19 13:18 PARALYSIS Review of Systems ROS Statement: Those systems with pertinent positive or pertinent negative responses have been documented in the HPI. ROS Other: All systems not noted in ROS Statement are negative. Past Medical History Past Medical History: Seizure Disorder Additional Past Medical History / Comment(s): Bipolar disorder, depression, previous history of suicidal ideation, previous opiate dependence, previous history of intentional suicide, restless leg syndrome, previous history of right shoulder dislocation, chronic anxiety, muscle spasms, severe problems related to social support group, and chronic psychiatric disorder History of Any Multi-Drug Resistant Organisms: None Reported Additional Past Surgical History / Comment(s): Biopsies of left breast cysts. Past Anesthesia/Blood Transfusion Reactions: No Reported Reaction Past Psychological History: Anxiety, Bipolar, Depression, PTSD Smoking Status: Never smoker Past Alcohol Use History: Occasional Past Drug Use History: None Reported - Past Family History Father Family Medical History: Hypertension General Exam Limitations: altered mental status General appearance: appears intoxicated Head exam: Present: atraumatic, normocephalic Eye exam: Present: normal appearance, PERRL, EOMI. Absent: scleral icterus, conjunctival injection, periorbital swelling Respiratory exam: Present: normal lung sounds bilaterally. Absent: respiratory distress, wheezes, rales, rhonchi, stridor Cardiovascular Exam: Present: regular rate, normal rhythm, normal heart sounds. Absent: systolic murmur, diastolic murmur, rubs, gallop, clicks GI/Abdominal exam: Present: soft, normal bowel sounds. Absent: distended, tenderness, guarding, rebound, rigid Neurological exam: Present: altered Course Vital Signs 10/04/19 12:00 Temperature 97.5 F L Pulse Rate 91 Respiratory 18 Rate Blood Pressure 106/73 O2 Sat by Pulse 100 Oximetry Medical Decision Making - Medical Decision Making Upon arrival the patient is placed into room 13. A thorough history and physical exam was performed. The patient is aggressive stating that she did not take the medications that her family thinks she took. She is slurring her words. She does agree to laboratory studies and a urine sample. CMP unremarkable. HCG negative. Salicylates and acetaminophen negative. UDS is positive for benzodiazepines and marijuana. I discussed the case with the patient. She is more alert in the room. I called and discuss the case with Dr. Gleason. He is okay with the patient being discharged if she is more alert. Patient is observed in the emergency room for 3-1/2 hours. Her mentation does improve throughout this period. She becomes oriented and time. Patient continues to refuse that she took any additional medications. Dr. Gleason stated that the patient should not have any more refills of this medication. The medication that she this morning was most likely a refill on a previous prescription. He will ensure that the patient will no longer have access to this medication. His office will remain open during this time in the mornings. He would like patient to follow-up in the morning. I discussed this with the patient she is very adamant that she wants to leave at this time. I informed her that I would like to call her family. Patient states she is not willing to wait. She is requesting to sign AMA paperwork and leave right now. The patient's is alert, oriented and lucid. She is capable of making her own decisions at this time. She understands the risk of leaving prematurely to include permanent disability and even . The patient refused to sign AMA paperwork and walks out from her room. I did call the patient's brother after she had gone into the waiting room as he is listed as next of kin. He states that he is on his way to come pick her up. He will dispose of the medications that she took. I informed him that the patient should call this week to make an appointment with Dr. Gleason - Lab Data Result diagrams: 10/04/19 13:44 Lab Results 10/04/19 10/04/19 10/04/19 Range/Units 12:30 12:30 13:44 Sodium 139 (137-145) mmol/L Potassium 4.5 (3.5-5.1) mmol/L Chloride 108 H (98-107) mmol/L Carbon Dioxide 25 (22-30) mmol/L Anion Gap 6 mmol/L BUN 13 (7-17) mg/dL Creatinine 0.76 (0.52-1.04) mg/dL Est GFR (CKD-EPI)AfAm >90 (>60 ml/min/1.73 sqM) Est GFR (CKD-EPI)NonAf >90 (>60 ml/min/1.73 sqM) Glucose 76 (74-99) mg/dL Calcium 9.2 (8.4-10.2) mg/dL Total Bilirubin 0.2 (0.2-1.3) mg/dL AST 21 (14-36) U/L ALT 17 (4-34) U/L Alkaline Phosphatase 76 (38-126) U/L Total Protein 7.3 (6.3-8.2) g/dL Albumin 4.2 (3.5-5.0) g/dL Urine HCG, Qual Not Detected (Not Detectd) Salicylates <1.0 mg/dL Urine Opiates Screen Not Detected (NotDetected) Ur Oxycodone Screen Not Detected (NotDetected) Urine Methadone Screen Not Detected (NotDetected) Ur Propoxyphene Screen Not Detected (NotDetected) Acetaminophen <10.0 ug/mL Ur Barbiturates Screen Not Detected (NotDetected) U Tricyclic Antidepress Not Detected (NotDetected) Ur Phencyclidine Scrn Not Detected (NotDetected) Ur Amphetamines Screen Not Detected (NotDetected) U Methamphetamines Scrn Not Detected (NotDetected) U Benzodiazepines Scrn Detected H (NotDetected) Urine Cocaine Screen Not Detected (NotDetected) U Marijuana (THC) Screen Detected H (NotDetected) - EKG Data EKG Comments: EKG demonstrates a normal sinus rhythm with a ventricular rate of 76. SD interval 140. QRS 86. QTC of 434. No acute ST segment elevations or depressions concerning for ischemic changes Disposition Clinical Impression: Sedative, hypnotic, or anxiolytic abuse Disposition: Left Against Medical Advice Condition: Stable Is patient prescribed a controlled substance at d/c from ED?: No Referrals: Enrique Gleason MD [Primary Care Provider] - 1-2 days
[2019-10-04 13:03] LABS: Amphetamine Screen,Urine Not Detected (NotDetected); Barbiturate Screen,Urine Not Detected (NotDetected); Benzodiazepines Screen,Urine Detected (NotDetected); Cocaine Screen,Urine Not Detected (NotDetected); Methadone Screen, Urine Not Detected (NotDetected); Opiate Screen,Urine Not Detected (NotDetected); Oxycodone Screen, Urine Not Detected (NotDetected); Phencyclidine Screen,Urine Not Detected (NotDetected); Tricyclic Antidepressant,Urine Not Detected (NotDetected); Urn Cannabinoid Scrn Detected (NotDetected)
[2019-10-04 14:54] LABS: ALT 17 U/L (4-34); AST 21 U/L (14-36); Acetaminophen <10.0 ug/mL; African American GFR (CKD) >90 (>60 ml/min/1.73 sqM); Albumin 4.2 g/dL (3.5-5.0); Alkaline Phosphatase 76 U/L (38-126); Anion Gap 6 mmol/L; Blood Urea Nitrogen 13 mg/dL (7-17); Calcium 9.2 mg/dL (8.4-10.2); Carbon Dioxide 25 mmol/L (22-30); Chloride 108 mmol/L (98-107); Glucose 76 mg/dL (74-99); Non-African American GFR(CKD) >90 (>60 ml/min/1.73 sqM); Potassium 4.5 mmol/L (3.5-5.1); Salicylate <1.0 mg/dL; Sodium 139 mmol/L (137-145); Total Bilirubin 0.2 mg/dL (0.2-1.3); Total Protein 7.3 g/dL (6.3-8.2)
== END 2019-10-04 15:38 | disposition left against medical advice (07) ==
LOC: EC 11:55
DX: F13.10 Sedative, hypnotic or anxiolytic abuse, uncomplicated (principal); F31.9 Bipolar disorder, unspecified; F41.9 Anxiety disorder, unspecified; Z79.899 Other long term (current) drug therapy; Z88.5 Allergy status to narcotic agent; Z88.8 Allergy status to other drugs, medicaments and biological substances
CPT/HCPCS: 99284 ×2; 36415; 93005; 80053; 81025; 80306; 83520; G0480; 80329

== ENCOUNTER 2021-02-18 21:28 | Emergency (ER) | payer MEDICARE ==
[2021-02-18] MEDS ORDERED: PHENAZOPYRIDINE 100 MG TAB PO STA (21:45)
[2021-02-18] MEDS ORDERED: KETOROLAC 15 MG/ML 1 ML VIAL IM STA (21:46)
--- NOTE | 2021-02-18 21:50 | ED ---
General Adult HPI - General Chief complaint: Abdominal Pain Stated complaint: uti Source: patient, RN notes reviewed, old records reviewed Mode of arrival: ambulatory Limitations: no limitations - History of Present Illness Initial comments: 45-year-old white female, alert and oriented 4, patient presents to the emergency room complaints of dysuria for 1 day. Patient states that she made appointment with her primary care doctor for tomorrow but couldn't tolerate the burning so she came to the emergency room. She has a history of multiple urinary tract infections in the past and this feels the same. She denies any fevers and no back pain. She denies any nausea or vomiting. She is requesting strong pain medication to help her sleep tonight. Patient is a smoker. -: days(s) (1) Location: pelvis Radiation: non-radiation Severity scale (1-10): 8 Quality: burning Consistency: constant Improves with: none Worsens with: none Associated Symptoms: denies other symptoms - Related Data Home Medications Medication Instructions Recorded Confirmed Multivitamins, Thera [Multivitamin 1 tab PO DAILY@1200 10/04/19 10/04/19 (formulary)] PARoxetine [Paxil] 20 mg PO DAILY 10/04/19 10/04/19 Zolpidem [Ambien] 10 mg PO HS PRN 10/04/19 10/04/19 diazePAM [Valium] 5 mg PO BID PRN 10/04/19 10/04/19 Previous Rx's Medication Instructions Recorded ARIPiprazole [Abilify] 2.5 mg PO HS #30 tab 09/16/19 Desvenlafaxine Succinate [Pristiq 50 mg PO DAILY #30 tab.er.24h 09/16/19 ER] Gabapentin [Neurontin] 200 mg PO TID #180 cap 09/16/19 Phenazopyridine [Pyridium] 100 mg PO TID #6 tablet 02/18/21 Sulfamethox-Tmp 800-160Mg [Bactrim 1 each PO Q12HR #20 tab 02/18/21 Ds] Allergies Allergy/AdvReac Type Severity Reaction Status Date / Time suvorexant [From [facility]] AdvReac SLEEP Verified 02/18/21 21:34 PARALYSIS trazodone AdvReac SLEEP Verified 02/18/21 21:34 PARALYSIS Review of Systems ROS Statement: Those systems with pertinent positive or pertinent negative responses have been documented in the HPI. ROS Other: All systems not noted in ROS Statement are negative. Past Medical History Past Medical History: Seizure Disorder Additional Past Medical History / Comment(s): Bipolar disorder, depression, previous history of suicidal ideation, previous opiate dependence, previous history of intentional suicide, restless leg syndrome, previous history of right shoulder dislocation, chronic anxiety, muscle spasms, severe problems related to social support group, and chronic psychiatric disorder History of Any Multi-Drug Resistant Organisms: None Reported Additional Past Surgical History / Comment(s): Biopsies of left breast cysts. Past Anesthesia/Blood Transfusion Reactions: No Reported Reaction Past Psychological History: Anxiety, Bipolar, Depression, PTSD Smoking Status: Never smoker Past Alcohol Use History: Occasional Past Drug Use History: None Reported - Past Family History Father Family Medical History: Hypertension General Exam Limitations: no limitations General appearance: alert, in no apparent distress Head exam: Present: atraumatic, normocephalic, normal inspection Eye exam: Present: normal appearance, PERRL, EOMI. Absent: scleral icterus, conjunctival injection, periorbital swelling ENT exam: Present: normal exam, normal oropharynx, mucous membranes moist Neck exam: Present: normal inspection, full ROM. Absent: tenderness, meningismus, lymphadenopathy Respiratory exam: Present: normal lung sounds bilaterally. Absent: respiratory distress, wheezes, rales, rhonchi, stridor, accessory muscle use, decreased breath sounds Cardiovascular Exam: Present: regular rate, normal rhythm, normal heart sounds. Absent: systolic murmur, diastolic murmur, rubs, gallop, clicks GI/Abdominal exam: Present: soft, tenderness (Suprapubic), normal bowel sounds. Absent: distended, guarding, rebound, rigid Back exam: Absent: tenderness, CVA tenderness (R), CVA tenderness (L), muscle spasm, paraspinal tenderness, vertebral tenderness Neurological exam: Present: alert, oriented X3, CN II-XII intact, normal gait Psychiatric exam: Present: anxious (Hyperverbal). Absent: depressed, agitated Skin exam: Present: warm, dry, intact, normal color. Absent: rash, cyanosis, diaphoretic, petechiae, pallor Course Vital Signs 02/18/21 21:32 Temperature 97.7 F Pulse Rate 77 Respiratory 18 Rate Blood Pressure 127/80 O2 Sat by Pulse 99 Oximetry Medical Decision Making - Medical Decision Making Patient denies any fevers, back pain or nausea and vomiting. She states that she's had urinary tract infections in the past and feels the same. UA is cloudy with large blood, moderate leukocyte esterase and 59 WBCs. Urine test is negative. She does have an appointment with her primary care doctor tomorrow and is advised to keep this appointment. She was given Pyridium for the burning pain and dysuria. Patient became very upset but not getting medication for pain. She was prescribed Pyridium and directed to take Tylenol and Motrin along with her antibiotics. She was directed to return to the emergency room with worsening pain, fevers or nausea and vomiting. - Lab Data Lab Results 02/18/21 02/18/21 Range/Units 21:48 21:48 Urine Color Yellow Urine Appearance Cloudy H (Clear) Urine pH 5.5 (5.0-8.0) Ur Specific [place] 1.032 (1.001-1.035) Urine Protein 2+ H (Negative) Urine Glucose (UA) Negative (Negative) Urine Ketones Negative (Negative) Urine Blood Large H (Negative) Urine Nitrite Negative (Negative) Urine Bilirubin Negative (Negative) Urine Urobilinogen 2.0 (<2.0) mg/dL Ur Leukocyte Esterase Moderate H (Negative) Urine RBC 68 H (0-5) /hpf Urine WBC 59 H (0-5) /hpf Ur Squamous Epith Cells 16 H (0-4) /hpf Urine Mucus Rare H (None) /hpf Urine HCG, Qual Not Detected (Not Detectd) Disposition Clinical Impression: UTI (urinary tract infection) Disposition: HOME SELF-CARE Condition: Good Instructions (If sedation given, give patient instructions): Urinary Tract Infection in Women (ED) Additional Instructions: Increase her fluid intake and take antibiotics as prescribed. Keep your appointment with the primary care doctor tomorrow. Return to emergency room with worsening symptoms including fever, nausea vomiting or back pain. Prescriptions: Sulfamethox-Tmp 800-160Mg [Bactrim Ds] 1 each PO Q12HR #20 tab Phenazopyridine [Pyridium] 100 mg PO TID #6 tablet Is patient prescribed a controlled substance at d/c from ED?: No Referrals: Sonu Travis MD [Primary Care Provider] - 1-2 days Time of Disposition: 22:11
[2021-02-18 22:06] LABS: Appearance,Urine Cloudy (Clear); Bilirubin,Urine Negative (Negative); Blood,Urine Large (Negative); Color,Urine Yellow; Glucose,Urine (UA) Negative (Negative); Ketones,Urine Negative (Negative); Leukocyte Esterase,Urine Moderate (Negative); Mucus,Urine Rare /hpf; Nitrite,Urine Negative (Negative); PH, Urine 5.5 (5.0-8.0); Protein,Urine 2+ (Negative); RBC,Urine 68 /hpf (0-5); Specific Gravity,Urine 1.032 (1.001-1.035); Squamous Epithelial Cell,Urine 16 /hpf (0-4); WBC,Urine 59 /hpf (0-5)
[2021-02-18] MEDS ORDERED: SULFAMETHOX-TMP 800-160MG 1 EACH TAB PO STA (22:13)
[2021-02-18 22:38] VITALS: BP 137/92; PULSE 61; RESP 20; TEMP 98.2
== END 2021-02-18 22:38 | disposition home or self-care (01) ==
LOC: EC 21:28
DX: N39.0 Urinary tract infection, site not specified (principal); G40.909 Epilepsy, unspecified, not intractable, without status epilepticus; Z79.899 Other long term (current) drug therapy; Z88.8 Allergy status to other drugs, medicaments and biological substances
CPT/HCPCS: 81001; 81025; 87086; 99284; 96372; J1885